=== PATIENT | female | born 1990 | race Caucasian/White ===

== ENCOUNTER 2016-09-10 12:07 | Observation (INO) | payer MEDICAID, OTHER ==
[~2016-09-10] VITALS: Ht 172.7 cm; Wt 100.0 kg
[~2016-09-10 12:07] MED LIST: METH5SOL3 PO
[2016-09-10 12:09] VITALS: BP 124/74; PULSE 86; RESP 20; TEMP 97.6; O2SAT 99
--- NOTE | 2016-09-10 12:21 | PD ---
Physical Exam Time Seen by Provider: 12:17 Narrative 26yo F c/o migraine ESQUEDA x 2.5 days Fever 101.2. Hx of migraines. +generalized weakness and vomiting. Takes methadone daily and last dose was 3 days ago; same day as ESQUEDA onset. Patient seen in triage. VS reviewed. Awaiting bed placement. Data Data Last Documented VS Vital Signs Date Time Temp Pulse Resp B/P Pulse Ox O2 Delivery O2 Flow Rate FiO2 09/10/16 12:09 97.6 86 20 124/74 99 Room Air MDM Supervised Visit with DAQUAN: Lavonne Richards September 10, 2016 12:21
[2016-09-10] MEDS ORDERED: METH40TA PO (12:43)
[2016-09-10] MEDS ORDERED: SODIUM CHLOR 0.9% 1000 ML INJ 1,000 ML IV ONE (12:52)
--- NOTE | 2016-09-10 12:55 | PD ---
HPI Chief Complaint: Headache Time Seen by Provider: 12:55 Travel History International Travel<30 days: No Contact w/Intl Traveler<30days: No Traveled to known affect area: No History of Present Illness HPI 26-year-old female with a history of IV drug use, anxiety, depression, migraine headaches presents to the emergency department for evaluation of headache, nausea, vomiting, generalized weakness and fatigue. Patient states that for the past month she has had worsening weakness, fatigue and chills. States that for the past 2 days she has had a migraine headache that began with a slow onset. Describes it as a throbbing pain in her posterior head, constant. The only alleviating factor is sleep. Complains of photophobia, nausea and vomiting with the headache. States that this began as a typical migraine headache for her however this pain is worse than previous headaches. States that she had a fever of 101.2F two nights ago. Denies any chest pain, shortness of breath, lightheadedness, abdominal pain, diarrhea, constipation, dysuria, hematuria, numbness or tingling, one-sided weakness, gait instability. States that she has not used IV drugs in about 3 months, she is now on methadone. She also mentions she has had some intermittent skin lesions over the last several months, states they become red, swollen and painful but have resolved on their own. She has not been feeling well for the last month and is worried she may have "bacteria in my blood again." No other complaints. PFSH Past Medical History Arthritis: No Asthma: No Autoimmune Disease: No Blood Disorders: No Bipolar Disorder: Yes Anxiety: Yes Depression: Yes Heart Rhythm Problems: No Cancer: No High Cholesterol: No Chest Pain: No Congestive Heart Failure: No COPD: No Cerebrovascular Accident: No Diminished Hearing: No Endocrine: No Gastrointestinal Disorders: No GERD: No Genitourinary: No Headaches: Yes Hepatitis: No Hiatal Hernia: No Hypertension: No Immune Disorder: No Implanted Vascular Access Dvce: No Kidney Stones: No Musculoskeletal: Yes Neurologic: Yes Psychiatric: Yes Reproductive: No Respiratory: Yes Migraines: Yes Renal Failure: No Schizophrenia: No Sickle Cell Disease: No Sleep Apnea: No Thyroid Disease: No Ulcer: No ?: Not Menopausal: No : 4 Para: 2 Miscarriage: 2 : 0 Dilation and Curettage (D&C): Yes Past Surgical History Abdominal Surgery: No AICD: No Appendectomy: No Arteriovenous Shunt: No Cardiac Surgery: No Cholecystectomy: No Endocrine Surgery: Yes Eye Surgery: Yes Genitourinary Surgery: No Gynecologic Surgery: No Insulin Pump: No Joint Replacement: No Neurologic Surgery: No Oral Surgery: Yes (WISDOM TEETH) Pacemaker: No Thoracic Surgery: No Other Surgery: Yes (WOUND DEBRIDEMENT) Social History Alcohol Use: No Tobacco Use: Yes Substance Use: No Allergies-Medications (Allergen,Severity, Reaction): Coded Allergies: Sulfa (Verified Allergy, Severe, Anaphylaxis, 09/10/16) *MDRO Multi-Drug Resistant Organism (Verified Adverse Reaction, Unknown, ) MRSA (leg wound) - 10/21/15 Reported Meds & Prescriptions Reported Meds & Active Scripts Active Reported Methadone (Methadone HCl) 40 Mg Tab 60 Mg PO DAILY Review of Systems Except as stated in HPI: all other systems reviewed are Neg Physical Exam Narrative GENERAL: Well-nourished and well-developed pleasant female patient in no acute distress who is nontoxic appearing. SKIN: Warm and dry. HEAD: Normocephalic and atraumatic. EYES: No injection, drainage, or hyphema noted. PERRLA. EOMI. ENT: No nasal drainage noted. Oropharynx is clear. NECK: Supple and the trachea is midline. No nuchal rigidity. CARDIOVASCULAR: Regular rate and rhythm. RESPIRATORY: Breath sounds are equal bilaterally with no accessory muscle use, wheezing, rhonchi, or crackles. GASTROINTESTINAL: Abdomen is soft, non-tender, and nondistended. MUSCULOSKELETAL: No obvious deformities, swelling, cyanosis, or ecchymosis is present throughout the upper and lower extremities. Patient has full range of motion without any signs of neurovascular compromise. NEUROLOGICAL: Awake, alert, and oriented. Normal speech and gait. Cranial nerves are grossly intact. Data Data Last Documented VS Vital Signs Date Time Temp Pulse Resp B/P Pulse Ox O2 Delivery O2 Flow Rate FiO2 09/10/16 14:58 82 18 120/82 99 Room Air 09/10/16 12:09 97.6 Orders Complete Blood Count With Diff (09/10/16 12:52) Comprehensive Metabolic Panel (09/10/16 12:52) Lactic Acid Sepsis Protocol (09/10/16 12:52) Lipase (09/10/16 12:52) Urinalysis - C+S If Indicated (09/10/16 12:52) Influenzae A/B Antigen (09/10/16 12:52) Blood Culture (09/10/16 12:52) Chest, Single Ap (09/10/16 12:52) Blood Glucose (09/10/16 12:52) Ecg Monitoring (09/10/16 12:52) Iv Access Insert/Monitor (09/10/16 12:52) Oximetry (09/10/16 12:52) Ed Urine Pregnancytest Poc (09/10/16 12:52) Prochlorperazine Inj (Compazine Inj) (09/10/16 13:00) Diphenhydramine Inj (Benadryl Inj) (09/10/16 13:00) Sodium Chlor 0.9% 1000 Ml Inj (Ns 1000 M (09/10/16 12:52) Ct Brain W/O Iv Contrast(Rout) (09/10/16 13:22) C-Reactive Protein (Crp) (09/10/16 13:30) Westergren Sedimentation Rate (09/10/16 13:30) Urine Culture (09/10/16 13:20) Vancomycin Inj (Vancomycin Inj) (09/10/16 14:57) Admit Order (Ed Use Only) (09/10/16 16:06) Labs Laboratory Tests Test 09/10/16 09/10/16 09/10/16 09/10/16 13:20 13:31 14:06 14:17 Urine Color YELLOW Urine Turbidity HAZY Urine pH 7.0 Urine Specific [place] 1.020 Urine Protein TRACE mg/dL Urine Glucose (UA) NEG mg/dL Urine Ketones NEG mg/dL Urine Occult Blood NEG Urine Nitrite NEG Urine Bilirubin NEG Urine Urobilinogen LESS THAN 2.0 MG/DL Urine Leukocyte Esterase SMALL Urine RBC 1 /hpf Urine WBC 3 /hpf Urine Squamous Epithelial 3 /hpf Cells Urine Bacteria RARE /hpf Urine Mucus FEW /lpf Microscopic Urinalysis Comment CATH-CULTURE IND White Blood Count 16.4 TH/MM3 Red Blood Count 5.11 MIL/MM3 Hemoglobin 13.2 GM/DL Hematocrit 40.3 % Mean Corpuscular Volume 78.9 FL Mean Corpuscular Hemoglobin 25.9 PG Mean Corpuscular Hemoglobin 32.8 % Concent Red Cell Distribution Width 13.7 % Platelet Count 203 TH/MM3 Mean Platelet Volume 7.9 FL Neutrophils (%) (Auto) 88.5 % Lymphocytes (%) (Auto) 7.5 % Monocytes (%) (Auto) 3.3 % Eosinophils (%) (Auto) 0.2 % Basophils (%) (Auto) 0.5 % Neutrophils # (Auto) 14.5 TH/MM3 Lymphocytes # (Auto) 1.2 TH/MM3 Monocytes # (Auto) 0.5 TH/MM3 Eosinophils # (Auto) 0.0 TH/MM3 Basophils # (Auto) 0.1 TH/MM3 CBC Comment AUTO DIFF Differential Total Cells 100 Counted Neutrophils % (Manual) 72 % Band Neutrophils % 9 % Lymphocytes % 13 % Monocytes % 6 % Neutrophils # (Manual) 13.3 TH/MM3 Differential Comment FINAL DIFF MANUAL Platelet Estimate NORMAL Platelet Morphology Comment NORMAL Red Cell Morphology Comment NORMAL Sodium Level 138 MEQ/L Potassium Level 4.3 MEQ/L Chloride Level 106 MEQ/L Carbon Dioxide Level 25.0 MEQ/L Anion Gap 7 MEQ/L Blood Urea Nitrogen 10 MG/DL Creatinine 0.61 MG/DL Estimat Glomerular Filtration 117 ML/MIN Rate Random Glucose 88 MG/DL Calcium Level 8.7 MG/DL Total Bilirubin 0.5 MG/DL Aspartate Amino Transf 24 U/L (AST/SGOT) Alanine Aminotransferase 22 U/L (ALT/SGPT) Alkaline Phosphatase 70 U/L C-Reactive Protein 2.30 MG/DL Total Protein 7.8 GM/DL Albumin 3.3 GM/DL Lipase 80 U/L Lactic Acid Level 1.6 mmol/L Erythrocyte Sedimentation Rate 37 mm/hr MDM Medical Decision Making Medical Screen Exam Complete: Yes Emergency Medical Condition: Yes Differential Diagnosis Viral illness versus bacteremia versus migraine headache versus tension headache versus other Narrative Course 26-year-old female with a history of IV drug use presents to the emergency department for evaluation of headache, vomiting, fever and generalized weakness. Patient is afebrile here in the emergency Department, vital signs are within normal limits. No focal neurologic deficits, no meningeal signs. IV access is obtained, labs have been drawn and sent. Patient is placed on cardiac telemetry and pulse oximetry monitoring. Patient is administered IV fluids, Benadryl and Compazine. Chest X-ray and head CT has been ordered and is pending. CBC shows an elevated white blood cell count 16.4 with 9% band neutrophils. Sedimentation rate is elevated at 37. CMP is within normal limits. CRP is elevated at 2.3. Lactic acid is 1.6. Urinalysis shows small leukocyte esterase, rare bacteria, few mucus. Chest x-ray is unremarkable. Influenza swab is negative. Patient with history of IVDU comes in with vague complaints of general weakness , fever, headache and labs show a leukocytosis with bandemia. She has a history of sepsis and bacteremia. She's reporting some intermittent skin lesions, no active skin infection found on examination. No source of infection noted at this time, however, due to her abnormal white count and her history we' ll administered IV vancomycin and keep her under observation to follow blood cultures. I discussed the case with my attending physician Dr. Choi who is aware of the patients history, physical examination findings, and treatment plan. Physician Communication Physician Communication I spoke with Dr. Cantrell [facility] who agrees to admit the patient to his service under observation. Diagnosis Primary Impression: Leukocytosis Qualified Code: D72.825 - Bandemia Additional Impressions: Bandemia without diagnosis of specific infection Hx of intravenous drug use in remission Admitting Information Admitting Physician Requests: Observation Lavonne Velazquez September 10, 2016 12:55
[2016-09-10] MEDS ORDERED: PROCHLORPERAZINE INJ 10 MG/2 ML VIAL IVP ONE (13:00)
[2016-09-10] MEDS ORDERED: diphenhydrAMINE HCL 50 MG/ML VIAL IVP ONE (13:00)
--- NOTE | 2016-09-10 13:34 | RADRPT ---
EXAM DATE/TIME: 09/10/2016 13:12 [facility] COMPARISON: CHEST SINGLE AP, January 03, 2016, 11:00. INDICATIONS : Fever and vomiting. MEDICAL HISTORY : None. SURGICAL HISTORY : None. ENCOUNTER: Initial ACUITY: 3 days PAIN SCORE: 0/10 LOCATION: Bilateral chest FINDINGS: A single view of the chest demonstrates the lungs to be symmetrically aerated without evidence of mas s, infiltrate or effusion. The cardiomediastinal contours are unremarkable. Osseous structures are intact. CONCLUSION: No acute disease. Pineda Post MD FACR on September 10, 2016 at 13:32 Board Certified Radiologist. This report was verified electronically.
[2016-09-10 13:54] LABS: BACTERIA, URINE RARE /hpf; BLOOD, URINE NEG (NEG); GLUCOSE,URINE NEG (NEG); KETONE, URINE NEG (NEG); MUCUS URINE FEW /lpf (OCC); NITRITE,URINE NEG (NEG); SQUAMOUS EPITHELIAL CELL URINE 3 /hpf (0-5); URINE COLOR YELLOW (YELLW/STRAW)
[2016-09-10 13:56] LABS: COMMENT (UR) CATH-CULTURE IND; CULTURE IF INDICATED CATH CULTURE IND
[2016-09-10 13:58] LABS: AUTOMATED NEUTROPHIL # 14.5 TH/MM3 (1.8-7.7); BASOPHIL # 0.1 TH/MM3 (0-0.2); BASOPHIL % 0.5 % (0.0-2.0); EOSINOPHIL % 0.2 % (0.0-4.0); HEMATOCRIT 40.3 % (35.0-46.0); LYMPH % 7.5 % (9.0-44.0); LYMPHOCYTE # 1.2 TH/MM3 (1.0-4.8); MEAN CELL VOLUME 78.9 FL (80.0-100.0); MEAN CORPUSCULAR HEMOGLOBIN 25.9 PG (27.0-34.0); MEAN CORPUSCULAR HGB CONC 32.8 % (32.0-36.0); MONO % 3.3 % (0.0-8.0); NEUT % 88.5 % (16.0-70.0); PLATELET COUNT 203 TH/MM3 (150-450); RED BLOOD COUNT 5.11 MIL/MM3 (4.00-5.30); RED CELL DISTRIBUTION WIDTH 13.7 % (11.6-17.2); WHITE BLOOD COUNT 16.4 TH/MM3 (4.0-11.0)
[2016-09-10 13:59] LABS: HEMO FLAGS AUTO DIFF
[2016-09-10 14:02] LABS: ANION GAP 7 MEQ/L (5-15); AST (GOT) 24 U/L (15-37); BLOOD UREA NITROGEN 10 MG/DL (7-18); CHLORIDE 106 MEQ/L (98-107); GLOMERULAR FILTRATION RATE 117 ML/MIN (>89); POTASSIUM 4.3 MEQ/L (3.5-5.1); SODIUM (NA) 138 MEQ/L (136-145)
[2016-09-10 14:07] LABS: ALKALINE PHOSPHATASE 70 U/L (45-117); ALT (GPT) 22 U/L (10-53); TOTAL BILIRUBIN ADULT 0.5 MG/DL (0.2-1.0)
--- NOTE | 2016-09-10 14:10 | PD ---
Data Data Last Documented VS Vital Signs Date Time Temp Pulse Resp B/P Pulse Ox O2 Delivery O2 Flow Rate FiO2 09/10/16 14:58 82 18 120/82 99 Room Air 09/10/16 12:09 97.6 Orders Complete Blood Count With Diff (09/10/16 12:52) Comprehensive Metabolic Panel (09/10/16 12:52) Lactic Acid Sepsis Protocol (09/10/16 12:52) Lipase (09/10/16 12:52) Urinalysis - C+S If Indicated (09/10/16 12:52) Influenzae A/B Antigen (09/10/16 12:52) Blood Culture (09/10/16 12:52) Chest, Single Ap (09/10/16 12:52) Blood Glucose (09/10/16 12:52) Ecg Monitoring (09/10/16 12:52) Iv Access Insert/Monitor (09/10/16 12:52) Oximetry (09/10/16 12:52) Ed Urine Pregnancytest Poc (09/10/16 12:52) Prochlorperazine Inj (Compazine Inj) (09/10/16 13:00) Diphenhydramine Inj (Benadryl Inj) (09/10/16 13:00) Sodium Chlor 0.9% 1000 Ml Inj (Ns 1000 M (09/10/16 12:52) Ct Brain W/O Iv Contrast(Rout) (09/10/16 13:22) C-Reactive Protein (Crp) (09/10/16 13:30) Westergren Sedimentation Rate (09/10/16 13:30) Urine Culture (09/10/16 13:20) Vancomycin Inj (Vancomycin Inj) (09/10/16 14:57) Labs Laboratory Tests Test 09/10/16 09/10/16 09/10/16 09/10/16 13:20 13:31 14:06 14:17 Urine Color YELLOW Urine Turbidity HAZY Urine pH 7.0 Urine Specific [place] 1.020 Urine Protein TRACE mg/dL Urine Glucose (UA) NEG mg/dL Urine Ketones NEG mg/dL Urine Occult Blood NEG Urine Nitrite NEG Urine Bilirubin NEG Urine Urobilinogen LESS THAN 2.0 MG/DL Urine Leukocyte Esterase SMALL Urine RBC 1 /hpf Urine WBC 3 /hpf Urine Squamous Epithelial 3 /hpf Cells Urine Bacteria RARE /hpf Urine Mucus FEW /lpf Microscopic Urinalysis Comment CATH-CULTURE IND White Blood Count 16.4 TH/MM3 Red Blood Count 5.11 MIL/MM3 Hemoglobin 13.2 GM/DL Hematocrit 40.3 % Mean Corpuscular Volume 78.9 FL Mean Corpuscular Hemoglobin 25.9 PG Mean Corpuscular Hemoglobin 32.8 % Concent Red Cell Distribution Width 13.7 % Platelet Count 203 TH/MM3 Mean Platelet Volume 7.9 FL Neutrophils (%) (Auto) 88.5 % Lymphocytes (%) (Auto) 7.5 % Monocytes (%) (Auto) 3.3 % Eosinophils (%) (Auto) 0.2 % Basophils (%) (Auto) 0.5 % Neutrophils # (Auto) 14.5 TH/MM3 Lymphocytes # (Auto) 1.2 TH/MM3 Monocytes # (Auto) 0.5 TH/MM3 Eosinophils # (Auto) 0.0 TH/MM3 Basophils # (Auto) 0.1 TH/MM3 CBC Comment AUTO DIFF Differential Total Cells 100 Counted Neutrophils % (Manual) 72 % Band Neutrophils % 9 % Lymphocytes % 13 % Monocytes % 6 % Neutrophils # (Manual) 13.3 TH/MM3 Differential Comment FINAL DIFF MANUAL Platelet Estimate NORMAL Platelet Morphology Comment NORMAL Red Cell Morphology Comment NORMAL Sodium Level 138 MEQ/L Potassium Level 4.3 MEQ/L Chloride Level 106 MEQ/L Carbon Dioxide Level 25.0 MEQ/L Anion Gap 7 MEQ/L Blood Urea Nitrogen 10 MG/DL Creatinine 0.61 MG/DL Estimat Glomerular Filtration 117 ML/MIN Rate Random Glucose 88 MG/DL Calcium Level 8.7 MG/DL Total Bilirubin 0.5 MG/DL Aspartate Amino Transf 24 U/L (AST/SGOT) Alanine Aminotransferase 22 U/L (ALT/SGPT) Alkaline Phosphatase 70 U/L C-Reactive Protein 2.30 MG/DL Total Protein 7.8 GM/DL Albumin 3.3 GM/DL Lipase 80 U/L Lactic Acid Level 1.6 mmol/L Erythrocyte Sedimentation Rate 37 mm/hr [facility] Supervised Visit with DAQUAN: Yes Narrative Course The history, exam, and medical decision-making in the associated mid-level provider note were completed with my assistance. I reviewed and agree with the findings presented. I attest that I had a [id number] encounter with the patient on the same day, and personally performed and documented my assessment and findings in the medical record. *My assessment and Findings: 26 year-old woman presents emergent arm feeling poorly for a month or 2, weakness fatigue and occasional fevers and night sweats, history of IVDU with endocarditis and septic arthritis, denies IV drug use over the past couple months. Here with headache. Started as her typical migraine, but not relieved with sleep like it normally is. She looks well on exam. No focal symptoms. She has a lot of skin infections and gets MRSA abscesses periodically as does her partner. We'll check labs, CT, inflammatory markers are reassess. I don't think she has a new bacteremia or sepsis. She does however have a mild bandemia , and elevation of inflammatory markers, given her history will plan on admission for observation. Procedures Procedure Narrative Ultrasound guided peripheral IV: This by multiple times nursing staff was unable to obtain IV access or obtain samples for diagnostic testing. The right forearm was prepped with chlorhexidine. It was examined under ultrasound. 20-gauge Angiocath was introduced in the right forearm with out difficulty. Blood samples were obtained. Patient tolerated well. Armando Choi MD September 10, 2016 14:10
[2016-09-10 14:28] LABS: BANDS 9 % (0-6); NEUTROPHIL # MANUAL DIFF 13.3 TH/MM3 (1.8-7.7); POLYS (SEG NEUTROPHILS) 72 % (16-70); WBC DIFF SAMPLE 100
[2016-09-10 14:29] LABS: PLATELET ESTIMATE SMEAR NORMAL (NORMAL); PLATELET MORPHOLOGY NORMAL (NORMAL); SCAN/DIFF FINAL DIFF MANUAL
[2016-09-10] MEDS ORDERED: VANCOMYCIN INJ 1,000 MG in SODIUM CHLOR 0.9% 250 ML INJ 250 ML IV STA (14:57)
[2016-09-10 14:58] VITALS: BP 120/82; PULSE 82; RESP 18; O2SAT 99
--- NOTE | 2016-09-10 15:19 | RADRPT ---
EXAM DATE/TIME: 09/10/2016 14:18 [facility] COMPARISON: CT BRAIN W/O CONTRAST, January 25, 2010, 22:59. INDICATIONS : Patient complains of headache for 3 days. RADIATION DOSE: 56.35 CTDIvol (mGy) MEDICAL HISTORY : Seizures. Diabetes mellitus type 1. Cardiovascular disease SURGICAL HISTORY : None. ENCOUNTER: Initial ACUITY: 1 day PAIN SCALE: 5/10 LOCATION: cranial TECHNIQUE: Multiple contiguous axial images were obtained of the head. Using automated exposure control and adj ustment of the mA and/or kV according to patient size, radiation dose was kept as low as reasonably a chievable to obtain optimal diagnostic quality images. FINDINGS: CEREBRUM: The ventricles are normal for age. No evidence of midline shift, mass lesion, hemorrhage or acute in farction. No extra-axial fluid collections are seen. POSTERIOR FOSSA: The cerebellum and brainstem are intact. The 4th ventricle is midline. The cerebellopontine angle i s unremarkable. EXTRACRANIAL: The visualized portion of the orbits is intact. SKULL: The calvaria is intact. No evidence of skull fracture. CONCLUSION: No acute intracranial findings. Jamel Hardwick MD on September 10, 2016 at 15:15 Board Certified Radiologist. This report was verified electronically.
[2016-09-10] MEDS ORDERED: LACTULOSE SYRUP 20 GM/30 ML CUP PO PRN (16:15)
[2016-09-10] MEDS ORDERED: ACETAMINOPHEN 325 MG TAB PO PRN (16:15)
[2016-09-10] MEDS ORDERED: TEMAZEPAM 15 MG CAP PO PRN (16:15)
[2016-09-10] MEDS ORDERED: NALOXONE HCL 0.4 MG/ML AMP IV PRN (16:15)
[2016-09-10] MEDS ORDERED: SENNOSIDES 8.6 MG TAB PO PRN (16:15)
[2016-09-10] MEDS ORDERED: MAGNESIUM HYDROXIDE SUSP 30 ML CUP PO PRN (16:15)
[2016-09-10] MEDS ORDERED: BISACODYL 10 MG SUPP RECTAL PRN (16:15)
[2016-09-10] MEDS ORDERED: ONDANSETRON HCL 4 MG/2 ML VIAL IVP PRN (16:15)
[2016-09-10] MEDS ORDERED: SODIUM CHLORIDE 0.9% FLUSH 10 ML FLUSH IV FLUSH PRN (16:15)
[2016-09-10 17:12] VITALS: BP 129/71; PULSE 73; RESP 20; TEMP 98.2; O2SAT 98
--- NOTE | 2016-09-10 17:21 | HHI.HP ---
[facility] No Primary Care Physician Admission Diagnosis Leukocytosis with Bandemia, Hx of IVDU Diagnoses: Chief Complaint: Headache Travel History International Travel<30 Days: No Contact w/Intl Traveler <30 Da: No Traveled to Known Affected Are: No History of Present Illness Written by Rainer Vernon PA-C, acting as scribe for Dr. Erich Cantrell on 09/10/16 at 17:07. Pt is 26 yo female with history inclusive of anxiety/depression, migraine headaches, and IV drug abuse (currently is a pt of the methadone treatment program of [facility] in [place]). Ms. Dewitt reported having a headache that began three days ago, reportedly worse than her usual headaches. She developed a fever two evenings ago (101.2). Over the course of her current illness, she has had nausea and vomiting to the point she has not been able to eat or drink. She also reported having photophobia that is ongoing. As her condition was not improving she came to [facility] ED for evaluation and management of her condition. Pt reported she has had relief from her headache and nausea/vomiting with a combination of Benadryl and Compazine administered in the ED. She denied fever, body aches, abdominal pain, altered vision (other than photophobia), chills, fever, cough, and shortness of breath. Per ED record, pt reported having "red spots" develop on her skin at various points. This were reported in the ED report as pain and abated on their own. None were endorsed at this time. Pt did endorse feeling low energy and "down" for a period of time. She said two weeks ago she "had a line of meth(amphetamine) and that was a huge mistake. A really, really huge mistake." Pt stated she "snorted" the drug and adamantly denied "shooting up." A 10 pt ROS was completed and, except as noted above, was negative. Pt is being admitted for observation to address her headache and nausea/ vomiting. Review of Systems Except as stated in HPI: all other systems reviewed are Neg Past Family Social History Past Medical History Arthritis: No Asthma: No Autoimmune Disease: No Blood Disorders: No Bipolar Disorder: Yes Anxiety: Yes Depression: Yes Heart Rhythm Problems: No Cancer: No High Cholesterol: No Chest Pain: No Congestive Heart Failure: No COPD: No Cerebrovascular Accident: No Diminished Hearing: No Endocrine: No Gastrointestinal Disorders: No GERD: No Genitourinary: No Headaches: Yes Hepatitis: No Hiatal Hernia: No Hypertension: No Immune Disorder: No Implanted Vascular Access Dvce: No Kidney Stones: No Musculoskeletal: Yes Neurologic: Yes Psychiatric: Yes Reproductive: No Respiratory: Yes Migraines: Yes Renal Failure: No Schizophrenia: No Sickle Cell Disease: No Sleep Apnea: No Thyroid Disease: No Ulcer: No ?: Not Menopausal: No : 4 Para: 2 Miscarriage: 2 : 0 Dilation and Curettage (D&C): Yes Past Surgical History Abdominal Surgery: No AICD: No Appendectomy: No Arteriovenous Shunt: No Cardiac Surgery: No Cholecystectomy: No Endocrine Surgery: Yes Eye Surgery: Yes Genitourinary Surgery: No Gynecologic Surgery: No Insulin Pump: No Joint Replacement: No Neurologic Surgery: No Oral Surgery: Yes (WISDOM TEETH) Pacemaker: No Thoracic Surgery: No Other Surgery: Yes (WOUND DEBRIDEMENT) Reported Medications Reported Meds & Active Scripts Active Reported Methadone (Methadone HCl) 40 Mg Tab 60 Mg PO DAILY Allergies: Coded Allergies: Sulfa (Verified Allergy, Severe, Anaphylaxis, 09/10/16) *MDRO Multi-Drug Resistant Organism (Verified Adverse Reaction, Unknown, ) 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 Ordered Medications Current Medications Medications (Trade) Dose Ordered Sig/Ml Route Start Time Stop Time Status Last Admin (NS 1000 ml Inj) 1,000 ml @ 100 mls/hr Q10H IV 09/10/16 16:05 (NS Flush) 2 ml UNSCH PRN IV FLUSH 09/10/16 16:15 (NS Flush) 2 ml BID IV FLUSH 09/10/16 21:00 (Tylenol) 650 mg Q4H PRN PO 09/10/16 16:15 (Zofran Inj) 4 mg Q6H PRN IVP 09/10/16 16:15 (Restoril) 15 mg HS PRN PO 09/10/16 16:15 (Narcan Inj) 0.4 mg UNSCH PRN IV 09/10/16 16:15 (Liliam-Colace) 1 tab BID PO 09/10/16 21:00 (Milk Of Magnesia Liq) 30 ml Q12H PRN PO 09/10/16 16:15 (Senokot) 17.2 mg Q12H PRN PO 09/10/16 16:15 (Dulcolax Supp) 10 mg DAILY PRN RECTAL 09/10/16 16:15 (Lactulose Liq) 30 ml DAILY PRN PO 09/10/16 16:15 (Dolophine) 60 mg DAILY PO 09/11/16 09:00 Family History Father had cardiac disease. Social History IV drug use, pt did not report the length of time she used and stated she has been in Methadone treatment for 3 months. Cigarette use: 04/14 ppd for an undetermined amount of time. Alcohol use: denied. Physical Exam Vital Signs Vital Signs Date Time Temp Pulse Resp B/P Pulse Ox O2 Delivery O2 Flow Rate FiO2 09/10/16 14:58 82 18 120/82 99 Room Air 09/10/16 14:16 97 Room Air 09/10/16 14:16 Room Air 09/10/16 12:09 97.6 86 20 124/74 99 Room Air Physical Exam GENERAL: Pt was encountered laying a bed, in her right side, lights off in the room. She is obese, well-developed, in no apparent distress. SKIN: No rashes, ecchymoses or lesions. Cool and dry. Soles of feet noted to be smudged with black. HEAD: Atraumatic. Normocephalic. No temporal or scalp tenderness. EYES: Pupils equal round and reactive. No scleral icterus. No injection or drainage. Pt evidenced photophobia and requested lights be kept off during the examination. ENT: Nose without bleeding or purulent drainage. Airway patent. NECK: Trachea midline. No JVD or lymphadenopathy. Supple, nontender, no nuchal rigidity with Kernig and Brudzinski signs negative CARDIOVASCULAR: Regular rate and rhythm without murmurs, gallops, or rubs. RESPIRATORY: Clear to auscultation. Breath sounds equal bilaterally. No wheezes , rales, or rhonchi. GASTROINTESTINAL: Abdomen soft, non-tender, nondistended. No hepato- splenomegaly or guarding. MUSCULOSKELETAL: Extremities without clubbing, cyanosis, or edema. No joint tenderness, effusion, or edema noted. NEUROLOGICAL: Awake and alert. Cranial nerves II through XII intact. Motor and sensory grossly within normal limits. Five out of 5 muscle strength in all muscle groups. Speech was clear and fluent. Laboratory Laboratory Tests Test 09/10/16 09/10/16 09/10/16 09/10/16 13:20 13:31 14:06 14:17 Urine Color YELLOW Urine Turbidity HAZY Urine pH 7.0 Urine Specific [place] 1.020 Urine Protein TRACE Urine Glucose (UA) NEG Urine Ketones NEG Urine Occult Blood NEG Urine Nitrite NEG Urine Bilirubin NEG Urine Urobilinogen LESS THAN 2.0 Urine Leukocyte Esterase SMALL Urine RBC 1 Urine WBC 3 Urine Squamous Epithelial 3 Cells Urine Bacteria RARE Urine Mucus FEW Microscopic Urinalysis Comment CATH-CULTURE IND White Blood Count 16.4 Red Blood Count 5.11 Hemoglobin 13.2 Hematocrit 40.3 Mean Corpuscular Volume 78.9 Mean Corpuscular Hemoglobin 25.9 Mean Corpuscular Hemoglobin 32.8 Concent Red Cell Distribution Width 13.7 Platelet Count 203 Mean Platelet Volume 7.9 Neutrophils (%) (Auto) 88.5 Lymphocytes (%) (Auto) 7.5 Monocytes (%) (Auto) 3.3 Eosinophils (%) (Auto) 0.2 Basophils (%) (Auto) 0.5 Neutrophils # (Auto) 14.5 Lymphocytes # (Auto) 1.2 Monocytes # (Auto) 0.5 Eosinophils # (Auto) 0.0 Basophils # (Auto) 0.1 CBC Comment AUTO DIFF Differential Total Cells 100 Counted Neutrophils % (Manual) 72 Band Neutrophils % 9 Lymphocytes % 13 Monocytes % 6 Neutrophils # (Manual) 13.3 Differential Comment FINAL DIFF MANUAL Platelet Estimate NORMAL Platelet Morphology Comment NORMAL Red Cell Morphology Comment NORMAL Sodium Level 138 Potassium Level 4.3 Chloride Level 106 Carbon Dioxide Level 25.0 Anion Gap 7 Blood Urea Nitrogen 10 Creatinine 0.61 Estimat Glomerular Filtration 117 Rate Random Glucose 88 Calcium Level 8.7 Total Bilirubin 0.5 Aspartate Amino Transf 24 (AST/SGOT) Alanine Aminotransferase 22 (ALT/SGPT) Alkaline Phosphatase 70 C-Reactive Protein 2.30 Total Protein 7.8 Albumin 3.3 Lipase 80 Lactic Acid Level 1.6 Erythrocyte Sedimentation Rate 37 Date/Time Procedure Status Source Growth 09/10/16 14:10 Aerobic Blood Culture Received Blood Peripheral Pending 09/10/16 14:10 Anaerobic Blood Culture Received Blood Peripheral Pending 09/10/16 14:08 Influenza Types A,B Antigen (PILLO) - Final Complete Nasal Washing NEGATIVE FOR FLU A AND B ANTIGEN.... 09/10/16 13:32 Influenza Types A,B Antigen (PILLO) Received Nasal Washing Pending 09/10/16 13:20 Urine Culture Received Urine Catheterized Urine Pending Result Diagram: 09/10/16 1331 09/10/16 1331 Imaging Last Impressions Head CT 09/10/16 1322 Signed Impressions: Service Date/Time: Thursday, September 10, 2016 14:18 - CONCLUSION: No acute intracranial findings. Jamel Hardwick MD Chest X-Ray 09/10/16 1252 Signed Impressions: Service Date/Time: Thursday, September 10, 2016 13:12 - CONCLUSION: No acute disease. Pineda Post MD FACR Assessment and Plan Problem List: (1) Hx of intravenous drug use, in remission ICD Code: Z87.898 Status: Acute (2) Headache ICD Code: R51 Status: Acute Assessment and Plan Ms. Dewitt is a 26 year old female with history of IVDU who presents to the due to headache. Headache improved by Compazine and Benadryl in the ED. Headache - CT head negative for any acute findings. - Pt reported she got relief from ER headache with combination of Benadryl ( 25 mg) and Compazine (10 mg). - Will continue Compazine PRN for headache. IF not relieved by Compazine, Fioricet can be used. - WBC is elevated to 16.4K with Neutrophil count 88.5%. No nuchal rigidity. Kernig's and Brudzinski signs negative. - Follow CBC, urine culture. - Possible Brain abscess - Patient has a history of IVDU and current symptoms of headache, leukocytosis, fever, Lactic acid 1.6. ESR, CRP elevated. - We will empirically treat patient for possible brain abscess. - Patient received Vancomycin in the ED. We will give her one dose of Ceftriaxone 2g and Flagyl IV 1g today. - Continue Flagyl 500mg IV Q8hrs, Ceftriaxone 2g Q24hrs, Vancomycin - pharmacy to dose. - De-escalate antibiotics if clinical suspicion is low for any infectious process. - Will order MRI of the brain with Gadolinium contrast to rule out brain abscess. HX of intravenous drug use, in remission. -Pt has stated she takes 110 mg of methadone,daily. She has stated release of information has been signed for team to discuss her issues with [facility] in [place]. Will request a verification of this medication. This note was transcribed by jessenia Vernon PA-C . I, Dr. David Cantrell personally performed the history, physical exam, and medical decision making; and confirmed the accuracy of the information in the transcribed note. Authenticated by Dr. David Cantrell on 09/10/16 at 22:54. Discussed Condition With Pt, RN at bed side Problem Qualifiers (1) Headache: Qualified Code: R51 - Acute intractable headache, unspecified headache type Rainer Vernon Jr. September 10, 2016 17:21 Ciara Cantrell DO September 10, 2016 23:25
[2016-09-10] MEDS: SODIUM CHLOR 0.9% 1000 ML INJ 1,000 ML IV SCH (17:24)
[2016-09-10 19:29] VITALS: BP 104/60; PULSE 84; RESP 18; TEMP 98.5; O2SAT 98
[2016-09-10] MEDS: DOCUSATE SODIUM 50 MG/SENNA 8.6 MG TAB PO SCH (20:35)
[2016-09-10] MEDS: SODIUM CHLORIDE 0.9% FLUSH 10 ML FLUSH IV FLUSH SCH (20:35)
[2016-09-10] MEDS ORDERED: PROCHLORPERAZINE MALEATE 10 MG TAB PO PRN (23:00)
[2016-09-10] MEDS ORDERED: ACETAMIN 325 MG/BUTALBITAL 50 MG/CAFFEINE 40 MG TAB PO PRN (23:00)
[2016-09-10] MEDS ORDERED: cefTRIAXone INJ 2,000 MG in SODIUM CHLORIDE 0.9% INJ 100 ML IV ONE (23:15)
[2016-09-10] MEDS ORDERED: Vancomycin Consult Pharmacy 1 EA OTHER SCH (23:15)
[2016-09-10 23:33] VITALS: BP 106/64; PULSE 74; RESP 18
[2016-09-11] MEDS ORDERED: metroNIDAZOLE 500 MG INJ 100 ML IV ONE ×2 (01:00)
[2016-09-11] MEDS: SODIUM CHLOR 0.9% 1000 ML INJ 1,000 ML IV SCH ×3 (02:45→22:05)
[2016-09-11] MEDS ORDERED: VANCOMYCIN 1,500 MG/NS 500 ML IV ONE ×2 (03:00)
[2016-09-11 03:49] VITALS: BP 111/67; PULSE 58; RESP 18; TEMP 97.9; O2SAT 99
[2016-09-11] MEDS ORDERED: METH5SOL11 PO (07:46)
[2016-09-11 08:11] VITALS: BP 125/81; PULSE 88; RESP 20; O2SAT 96
[2016-09-11] MEDS: DOCUSATE SODIUM 50 MG/SENNA 8.6 MG TAB PO SCH ×2 (08:30→21:00)
[2016-09-11] MEDS ORDERED: LORazepam 2 MG/ML VIAL IV PUSH PRN (08:30)
[2016-09-11] MEDS: SODIUM CHLORIDE 0.9% FLUSH 10 ML FLUSH IV FLUSH SCH ×2 (08:35→21:00)
[2016-09-11] MEDS ORDERED: CYCLOBENZAPRINE HCL 10 MG TAB PO PRN (08:45)
[2016-09-11 08:47] LABS: AUTOMATED NEUTROPHIL # 3.8 TH/MM3 (1.8-7.7); BASOPHIL % 0.7 % (0.0-2.0); EOSINOPHIL # 0.2 TH/MM3 (0-0.4); EOSINOPHIL % 3.6 % (0.0-4.0); HEMATOCRIT 37.4 % (35.0-46.0); HEMO FLAGS DIFF FINAL; LYMPH % 26.6 % (9.0-44.0); LYMPHOCYTE # 1.6 TH/MM3 (1.0-4.8); MEAN CELL VOLUME 79.5 FL (80.0-100.0); MEAN CORPUSCULAR HEMOGLOBIN 25.8 PG (27.0-34.0); MEAN CORPUSCULAR HGB CONC 32.5 % (32.0-36.0); MONO % 5.1 % (0.0-8.0); PLATELET COUNT 169 TH/MM3 (150-450); RED CELL DISTRIBUTION WIDTH 13.8 % (11.6-17.2); WHITE BLOOD COUNT 5.9 TH/MM3 (4.0-11.0)
[2016-09-11] MEDS: METHADONE HCL 10 MG TAB PO SCH (08:55)
[2016-09-11] MEDS ORDERED: METHADONE HCL 10 MG TAB PO SCH (09:00)
--- NOTE | 2016-09-11 09:04 | HHI.PR ---
Subjective Remarks Follow up for headache, leukocytosis. The patient is sitting upright in bedside chair, complains of intractable low back pain. She states she has chronic right sided sciatica but her back pain has been worse over the past few days, currently rated 9/10. Denies any distal lower extremity numbness or tingling, but feels her right leg is slightly weaker due to the back pain. Her headache is much improved, currently subsided, however still reports some photophobia but no blurred/double vision. Denies fevers/chills overnight. Denies any other medical complaints at this time. Objective Vitals Vital Signs Date Time Temp Pulse Resp B/P Pulse Ox O2 Delivery O2 Flow Rate FiO2 09/11/16 08:11 88 20 125/81 96 09/11/16 03:49 97.9 58 18 111/67 99 09/10/16 23:33 74 18 106/64 09/10/16 21:40 20 09/10/16 19:29 98.5 84 18 104/60 98 09/10/16 17:12 98.2 73 20 129/71 98 09/10/16 14:58 82 18 120/82 99 Room Air 09/10/16 14:16 97 Room Air 09/10/16 14:16 Room Air 09/10/16 12:09 97.6 86 20 124/74 99 Room Air Result Diagram: 09/10/16 1331 09/10/16 1331 Imaging Last Impressions Head CT 09/10/16 1322 Signed Impressions: Service Date/Time: Saturday, September 10, 2016 14:18 - CONCLUSION: No acute intracranial findings. Jamel Hardwick MD Chest X-Ray 09/10/16 1252 Signed Impressions: Service Date/Time: Saturday, September 10, 2016 13:12 - CONCLUSION: No acute disease. Pineda Post MD FACR Objective Remarks GENERAL: Well-nourished, well-developed young female patient in [facility]. SKIN: Warm and dry. No rash. HEENT: Normocephalic. Atraumatic. Pupils equal and round. Mucous membranes pink and moist. NECK: Supple. Trachea midline. CARDIOVASCULAR: Regular rate and rhythm. S1, S2 noted. No murmur appreciated. RESPIRATORY: No accessory muscle use. Clear to auscultation. Breath sounds equal bilaterally. GASTROINTESTINAL: Abdomen soft, non-tender, nondistended. Normoactive bowel sounds x4. MUSCULOSKELETAL: No obvious deformities. Extremities without clubbing, cyanosis , or edema. Cervical and thoracic spine nontender. Diffuse TTP throughout lower lumbar paraspinous muscles, worse on the right, no bony point tenderness. NEUROLOGICAL: Awake and alert. No obvious cranial nerve deficits. Motor grossly within normal limits. 5/5 muscle strength in bilateral upper and lower extremities. Normal speech. PSYCHIATRIC: Anxious mood; insight and judgment normal. Medications and IVs Current Medications Medications (Trade) Dose Ordered Sig/Ml Route Start Time Stop Time Status Last Admin (NS 1000 ml Inj) 1,000 ml @ 100 mls/hr Q10H IV 09/10/16 16:05 09/11/16 02:45 (NS Flush) 2 ml UNSCH PRN IV FLUSH 09/10/16 16:15 (NS Flush) 2 ml BID IV FLUSH 09/10/16 21:00 09/10/16 20:35 (Tylenol) 650 mg Q4H PRN PO 09/10/16 16:15 09/10/16 20:38 (Zofran Inj) 4 mg Q6H PRN IVP 09/10/16 16:15 (Restoril) 15 mg HS PRN PO 09/10/16 16:15 (Narcan Inj) 0.4 mg UNSCH PRN IV 09/10/16 16:15 (Liliam-Colace) 1 tab BID PO 09/10/16 21:00 (Milk Of Magnesia Liq) 30 ml Q12H PRN PO 09/10/16 16:15 (Senokot) 17.2 mg Q12H PRN PO 09/10/16 16:15 (Dulcolax Supp) 10 mg DAILY PRN RECTAL 09/10/16 16:15 (Lactulose Liq) 30 ml DAILY PRN PO 09/10/16 16:15 (Fioricet 325-50-40) 1 tab Q8H PRN PO 09/10/16 23:00 Prochlorperazine Maleate 10 mg 10 mg Q6H PRN PO 09/10/16 23:00 Metronidazole 100 ml @ 100 mls/hr Q8H IV 09/11/16 10:00 Ceftriaxone Sodium 2000 mg/ Sodium Chloride 100 ml @ 200 mls/hr Q24H IV 09/11/16 23:00 (Vancomycin Consult Pharmacy) 0 ml @ 0 mls/hr UNSCH OTHER 09/10/16 23:15 (Ativan Inj) 1 mg ONCE PRN IV PUSH 09/11/16 08:30 09/11/16 16:00 (Dolophine) 120 mg DAILY PO 09/11/16 09:00 (Flexeril) 10 mg Q12H PRN PO 09/11/16 08:45 A/P Problem List: (1) Hx of intravenous drug use, in remission ICD Code: Z87.898 Status: Acute (2) Headache ICD Code: R51 Status: Acute Assessment and Plan Ms. Dewitt is a 26 year old female with history of IVDU who presents to the due to headache. Headache improved by Compazine and Benadryl in the ED. Headache: s/p benadryl and compazine in ER with moderate relief. - CT head negative for any acute findings. - Will continue Compazine PRN for headache. If not relieved by Compazine, Fioricet can be used. - WBC is elevated to 16.4K with Neutrophil count 88.5%. No nuchal rigidity. Kernig's and Brudzinski signs negative. - Follow CBC, urine culture. - Headache much improved today - Possible Brain abscess: Patient has a history of IVDU and current symptoms of headache, leukocytosis, fever, Lactic acid 1.6. ESR, CRP elevated. - Empirically treat patient for possible brain abscess - Continue Flagyl 500mg IV Q8hrs, Ceftriaxone 2g Q24hrs, Vancomycin - pharmacy to dose. - De-escalate antibiotics if clinical suspicion is low for any infectious process. - Ordered MRI brain w/&w/out contrast to rule out brain abscess. - 1300hrs: Brain MRI negative for abscess, discussed with Dr. Cisneros, discontinue antibiotics - Acute on Chronic Low Back Pain: suspect exacerbation of sciatica however with IVDU, concern for epidural abscess - check Lumbar spine MRI w/&w/out contrast to rule out abscess - Flexeril prn spasms - Kthermia pad - 1300hrs: Lumbar spine MRI negative for abscess HX of intravenous drug use, in remission. -RN verified dosing of methadone 120mg po liquid solution daily, goes to [facility] in [place] -continue methadone Anxiety: patient requesting medication for anxiety - will give atarax 10mg q6h prn anxiety while in the hospital DVT Prophylaxis: teds/SCDs Problem Qualifiers (1) Headache: Qualified Code: R51 - Acute intractable headache, unspecified headache type Vi Cleary PA-C Sep 11, 2016 9:04 am
[2016-09-11 09:27] LABS: POTASSIUM 4.1 MEQ/L (3.5-5.1)
[2016-09-11] MEDS ORDERED: metroNIDAZOLE 500 MG INJ 100 ML IV SCH (10:00)
[2016-09-11 10:31] LABS: AMPHETAMINE, URINE POS (NEG); BARBITURATES, URINE POS (NEG); COCAINE, URINE NEG (NEG)
[2016-09-11] MEDS ORDERED: GADODIAMIDE PF 287 MG/ML 20 ML VIAL (for RAD MRI) IV ONE (11:11)
[2016-09-11] MEDS ORDERED: VANCOMYCIN INJ 1,500 MG in SODIUM CHLORID 0.9% 500 ML INJ 500 ML IV SCH (12:00)
--- NOTE | 2016-09-11 12:02 | RADRPT ---
EXAM DATE/TIME: 09/11/2016 10:28 [facility] COMPARISON: MRI LUMBAR SPINE W & W/O CONTRAST, January 03, 2016, 12:21. INDICATIONS : Abscess. Back pain. CONTRAST: 20 cc Omniscan (gadodiamide) IV MEDICAL HISTORY : IVDU. SURGICAL HISTORY : Left arm surgery. Ankle surgery. ENCOUNTER: Subsequent ACUITY: 2 day PAIN SCORE: 7/10 LOCATION: back. TECHNIQUE: Multiplanar multisequence MRI of the lumbar spine was performed with and without contrast. FINDINGS: The most caudal appearing lumbar vertebra is numbered as L5. VERTEBRAE: There is endplate edema that is stable along the left side of the L4-L5 endplates. Also posteriorly t here is mild endplate edema at L2-L4 similar to the prior study but slightly increased. End plates ap pear intact. Vertebral body height is maintained. There is no anterolisthesis or retrolisthesis. CONUS: Normal level and configuration. POST CONTRAST: No abnormal areas of contrast enhancement are seen. T12-L1: No disc herniation, canal stenosis, or neural foraminal stenosis. L1-L2: No disc herniation, canal stenosis, or neural foraminal stenosis. L2-L3: There is disc desiccation with mild decreased disc height and there is a mild diffuse disc bulge with a mild degree of facet arthrosis. No spinal canal stenosis or neural foraminal narrowing is visualiz ed. L3-L4: There is disc desiccation with decreased disc height and there is a right paracentral disc extrusion at extends inferiorly from the disc space by 8 mm. It completely effaces the right lateral recess and has mass effect on the thecal sac and nerve roots causing mild to moderate spinal canal stenosis. Th ere is also mild facet hypertrophy. No significant neural foraminal narrowing is appreciated. The ext ruded disc material has slightly increased in size from the prior study. L4-L5: There is disc desiccation with mild decreased disc height. There is a diffuse disc bulge with small l eft paracentral disc protrusion which effaces the left lateral recess. There is also mild facet hyper trophy. Mild degree of spinal canal narrowing is present. There is mild to moderate left neural victoriano inal narrowing. Findings at this level are stable. L5-S1: There is disc desiccation with decreased disc height and there is a diffuse disc bulge with possible small right paracentral disc protrusion. Mild facet hypertrophy is present. There is no spinal canal stenosis or neural foraminal narrowing appreciated. The visualized paraspinous structures demonstrate no acute finding. CONCLUSION: 1. No abscess is identified, as questioned. There is stable endplate edema. 2. There is degenerative disc disease at L2-L3 through L5-S1. The extruded disc fragment in a right p aracentral location at L3-L4 has slightly increased in size and causes moderate spinal canal stenosis and mass effect on the adjacent thecal sac and nerve roots. Jaiden Tadeo MD on September 11, 2016 at 11:52 Board Certified Radiologist. This report was verified electronically.
[2016-09-11 12:05] VITALS: BP 144/78; PULSE 80; RESP 20; TEMP 98.4; O2SAT 97
--- NOTE | 2016-09-11 12:06 | RADRPT ---
EXAM DATE/TIME: 09/11/2016 10:28 [facility] COMPARISON: CT BRAIN W/O CONTRAST, September 10, 2016, 14:18. INDICATIONS : Abscess. Cephalgia. CONTRAST: 20 cc Omniscan (gadodiamide) IV MEDICAL HISTORY : IVDU. SURGICAL HISTORY : Left arm surgery. Ankle surgery. ENCOUNTER: Subsequent ACUITY: 3 day PAIN SCORE: 7/10 LOCATION: head. TECHNIQUE: Multiplanar, multisequence MRI of the brain was performed both prior to and following the administrat ion of paramagnetic contrast. FINDINGS: CEREBRUM: The ventricles are normal for age. No evidence of midline shift, mass lesion, hemorrhage or acute in farction. No extraaxial fluid collections are seen. The pituitary gland and suprasellar cistern are normal in configuration. WHITE MATTER: No significant signal abnormalities are seen in the white matter. POSTERIOR FOSSA: The cerebellum and brainstem are intact. The 4th ventricle is midline. The cerebellopontine angle is unremarkable. The cerebellar tonsils are normal in position. DIFFUSION IMAGING: No focal areas of restricted diffusion are seen. No evidence of acute infarction. EXTRACRANIAL: The visualized portions of the orbits and paranasal sinuses are unremarkable. POST-CONTRAST: No abnormal areas of parenchymal or dural enhancement. No evidence of blood-brain barrier breakdown. CONCLUSION: Negative exam. Kelby Givens MD on September 11, 2016 at 12:02 Board Certified Radiologist. This report was verified electronically.
[2016-09-11 14:28] VITALS: BP 132/91; PULSE 81; RESP 22; TEMP 97.9; O2SAT 98
[2016-09-11] MEDS ORDERED: ZOLO100T PO (14:35)
[2016-09-11] MEDS ORDERED: WELLTAB39 PO (14:35)
[2016-09-11] MEDS ORDERED: hydrOXYzine HCL 10 MG TAB PO PRN (15:00)
[2016-09-11] MEDS: NICOTINE 14 MG/24 HR PATCH T-DERMAL SCH (15:12)
[2016-09-11 15:43] VITALS: BP 120/73; PULSE 65; RESP 14; TEMP 98.3; O2SAT 95
[2016-09-11 19:42] VITALS: BP 120/72; PULSE 66; RESP 20; TEMP 98.6
[2016-09-11] MEDS ORDERED: cefTRIAXone INJ 2,000 MG in SODIUM CHLORIDE 0.9% INJ 100 ML IV SCH (23:00)
[2016-09-12 00:11] VITALS: BP 102/56; PULSE 70; RESP 20; TEMP 98.2; O2SAT 97
[2016-09-12] MEDS ORDERED: cefTRIAXone INJ 1,000 MG in SODIUM CHLORIDE 0.9% INJ 100 ML IV SCH (01:00)
[2016-09-12] MEDS ORDERED: PHARMACY ORDERED LAB ONE (03:45)
[2016-09-12 04:07] VITALS: BP 114/78; PULSE 74; RESP 20; TEMP 98.6; O2SAT 99
[2016-09-12 08:04] VITALS: BP 100/74; PULSE 58; RESP 18; TEMP 98; O2SAT 98
[2016-09-12] MEDS ORDERED: REMOVE OLD PATCH T-DERMAL SCH (09:00)
[2016-09-12] MEDS: METHADONE HCL 10 MG TAB PO SCH (09:20)
[2016-09-12] MEDS: NICOTINE 14 MG/24 HR PATCH T-DERMAL SCH (09:21)
[2016-09-12] MEDS: SODIUM CHLOR 0.9% 1000 ML INJ 1,000 ML IV SCH (09:22)
[2016-09-12] MEDS: SODIUM CHLORIDE 0.9% FLUSH 10 ML FLUSH IV FLUSH SCH (09:23)
[2016-09-12 12:33] VITALS: BP 97/55; PULSE 63; RESP 19; TEMP 97.9; O2SAT 95
[2016-09-12] MEDS ORDERED: ONDA1TAB16 PO (14:08)
--- NOTE | 2016-09-12 14:20 | HHI.PR ---
Subjective Remarks Follow-up for leukocytosis. Patient seen with family and friends at bedside with the patient's permission. The patient is asking if she can go home today. She denies any fevers or chills. She states that she recently did have a facial abscess with surrounding swelling, but states that that spontaneously resolved. She states that she has been having nausea, but has been tolerating diet with no vomiting. She would like to home today. Objective Vitals Vital Signs Date Time Temp Pulse Resp B/P Pulse Ox O2 Delivery O2 Flow Rate FiO2 09/12/16 12:33 97.9 63 19 97/55 95 09/12/16 08:04 98.0 58 18 100/74 98 09/12/16 04:07 98.6 74 20 114/78 99 09/12/16 00:11 98.2 70 20 102/56 97 09/11/16 19:42 98.6 66 20 120/72 09/11/16 15:43 98.3 65 14 120/73 95 09/11/16 14:28 97.9 81 22 132/91 98 Result Diagram: 09/11/16 0820 09/11/16 0820 Imaging Last Impressions Lumbar Spine MRI 09/11/16 0000 Signed Impressions: Service Date/Time: September 10:28 - CONCLUSION: 1. No abscess is identified, as questioned. There is stable endplate edema. 2. There is degenerative disc disease at L2-L3 through L5-S1. The extruded disc fragment in a right paracentral location at L3-L4 has slightly increased in size and causes moderate spinal canal stenosis and mass effect on the adjacent thecal sac and nerve roots. Jaiden Tadeo MD Brain MRI 09/11/16 0000 Signed Impressions: Service Date/Time: September 10:28 - CONCLUSION: Negative exam. Kelby Givens MD Head CT 09/10/16 1322 Signed Impressions: Service Date/Time: Saturday, September 10, 2016 14:18 - CONCLUSION: No acute intracranial findings. Jamel Hardwick MD Chest X-Ray 09/10/16 1252 Signed Impressions: Service Date/Time: Saturday, September 10, 2016 13:12 - CONCLUSION: No acute disease. Pineda Post MD FACR Objective Remarks GENERAL: Well-developed well-nourished. In no acute distress. SKIN: Warm and dry. No lesions noted. HEENT: Normocephalic. Pupils equal and round. Mucous membranes pink and moist. CARDIOVASCULAR: Regular rate and rhythm. No murmur appreciated. RESPIRATORY: No accessory muscle use. Clear to auscultation. Breath sounds equal bilaterally. GASTROINTESTINAL: Abdomen soft, non-tender, nondistended. Bowel sounds x4. MUSCULOSKELETAL: No obvious deformities. No clubbing or cyanosis. No edema. NEUROLOGICAL: Awake and alert. No focal neurological deficits. Moves upper and lower extremities spontaneously. Normal speech. PSYCHIATRIC: Appropriate mood and affect; insight and judgment normal. A/P Problem List: (1) Hx of intravenous drug use, in remission ICD Code: Z87.898 Status: Acute (2) Headache ICD Code: R51 Status: Acute Assessment and Plan Ms. Dewitt is a 26 year old female with history of IVDU who presents to the due to headache. Headache improved by Compazine and Benadryl in the ED. Headache: Rule out brain abscess. s/p benadryl and compazine in ER with moderate relief. - CT head negative for any acute findings. - Headache much improved and has not needed prn meds for ESQUEDA - Leukocytosis with bandemia: Afebrile. Lactic acid 1.6. ESR, CRP elevated. Symptoms possibly related to recent facial abscess. - S/P empiric antibiotics, which were discontinued - Ordered MRI brain w/&w/out, negative for acute process or abscess - Ordered Lumbar spine MRI w/&w/out contrast with back pain, negative for abscess - Urine culture with mixed sachin - Blood cultures with NGTD - Repeat CBC with resolution of leukocytosis and bandemia - Acute on Chronic Low Back Pain: suspect exacerbation of sciatica, ruled out abscess as above - Flexeril prn spasms - K thermia pad HX of intravenous drug use, in remission. -RN verified dosing of methadone 120mg po liquid solution daily, goes to [facility] in [place] -continue methadone Anxiety: patient requesting medication for anxiety -Received atarax 10mg q6h prn anxiety while in the hospital Nausea without vomiting -Zofran as needed DVT Prophylaxis: teds/SCDs Discharge Planning Discharge patient to home Condition on discharge: Improved Regular Diet as tolerated Regular activity Rx written: Ondansetron Follow-up with primary care physician Problem Qualifiers (1) Headache: Qualified Code: R51 - Acute intractable headache, unspecified headache type Rajiv Amador Sep 12, 2016 14:20
== END 2016-09-12 15:43 | disposition home or self-care (01) ==
LOC: NEPD 12:07 → NEDA 16:08 → NEPHCDU 17:06
PROVIDERS: ADMIT Internal Medicine; ATTEND Internal Medicine
DX: D72.825 Bandemia (principal); D72.829 Elevated white blood cell count, unspecified; G43.909 Migraine, unspecified, not intractable, without status migrainosus; R53.1 Weakness; R11.2 Nausea with vomiting, unspecified; R50.9 Fever, unspecified; F17.200 Nicotine dependence, unspecified, uncomplicated; F19.21 Other psychoactive substance dependence, in remission; M54.40 Lumbago with sciatica, unspecified side
CPT/HCPCS: 70450; 70553; 71010; 72158; 80048; 80053; 80307; 81001; 83605; 83690; 84703; 85007; 85025; 85027; 85652; 86140; 87040; 87086; 87641; 87804; 96365; 96375; 99285; A9579; G0378; J0696; J0780; J1200; J2060; J3370; J7030; J7040; J7050

== ENCOUNTER 2016-12-09 13:12 | Emergency (ER) | payer MEDICAID ==
[~2016-12-09 13:12] MED LIST changes: +METH5SOL11 PO; -METH5SOL3 PO; +ONDA1TAB16 PO; +WELLTAB39 PO; +ZOLO100T PO
[2016-12-09 13:15] VITALS: BP 123/78; PULSE 79; RESP 15; TEMP 98.4; TEMP 99.2; O2SAT 98
--- NOTE | 2016-12-09 13:27 | PD ---
Physical Exam Time Seen by Provider: 13:24 Narrative 26yo F c/o red ant bites all over x2 days. Onset of R hand and L foot swelling and redness today. Reports vomiting yesterday dn twice today. 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 Up to date on tetanus. Subjective fever. I questioned the patient privately and she admits to IVD use and last injected yesterday. She says she did get bit by red ants on her feet, but the swollen hand is due to injection. Patient seen in triage. VS reviewed. Patient awaiting bed placement. Data Data Last Documented VS Vital Signs Date Time Temp Pulse Resp B/P (MAP) Pulse Ox O2 Delivery O2 Flow Rate FiO2 12/09/16 13:15 99.2 79 15 123/78 (93) 98 Orders Orders Basic Metabolic Panel (Bmp) (12/09/16 13:27) Complete Blood Count With Diff (12/09/16 13:27) Lactic Acid (12/09/16 13:27) MDM Supervised Visit with DAQUAN: Lavonne Richards Dec 09, 2016 13:27
[2016-12-09 14:11] LABS: BASOPHIL % 0.3 % (0.0-2.0); EOSINOPHIL # 0.1 TH/MM3 (0-0.4); EOSINOPHIL % 0.7 % (0.0-4.0); HEMATOCRIT 35.1 % (35.0-46.0); HEMO FLAGS DIFF FINAL; LYMPH % 20.6 % (9.0-44.0); LYMPHOCYTE # 1.5 TH/MM3 (1.0-4.8); MEAN CELL VOLUME 78.8 FL (80.0-100.0); MEAN CORPUSCULAR HEMOGLOBIN 25.9 PG (27.0-34.0); MEAN CORPUSCULAR HGB CONC 32.8 % (32.0-36.0); MONO % 11.3 % (0.0-8.0); NEUT % 67.1 % (16.0-70.0); PLATELET COUNT 239 TH/MM3 (150-450); RED BLOOD COUNT 4.45 MIL/MM3 (4.00-5.30); WHITE BLOOD COUNT 7.5 TH/MM3 (4.0-11.0)
--- NOTE | 2016-12-09 14:23 | PD ---
HPI . Right hand pain and swelling Chief Complaint: Skin Problem Time Seen by Provider: 14:15 Travel History International Travel<30 days: No Contact w/Intl Traveler<30days: No Traveled to known affect area: No History of Present Illness HPI This is an IV drug abuser who presents with right hand pain and swelling. Onset was 2 days ago. The pain is severe. It is associated with a MAXIMUM TEMPERATURE of 102. She has been running a fever for the past 2 days as well. PFSH Past Medical History Arthritis: No Asthma: No Autoimmune Disease: No Blood Disorders: No Bipolar Disorder: Yes Anxiety: Yes Depression: Yes Heart Rhythm Problems: No Cancer: No High Cholesterol: No Chest Pain: No Congestive Heart Failure: No COPD: No Cerebrovascular Accident: No Diminished Hearing: No Endocrine: No Gastrointestinal Disorders: No GERD: No Genitourinary: No Headaches: Yes Hepatitis: No Hiatal Hernia: No Hypertension: No Immune Disorder: No Implanted Vascular Access Dvce: No Kidney Stones: No Musculoskeletal: Yes Neurologic: Yes (MIGRAINES) Psychiatric: Yes Reproductive: No Respiratory: No Migraines: Yes Renal Failure: No Schizophrenia: No Sickle Cell Disease: No Sleep Apnea: No Thyroid Disease: No Ulcer: No Menopausal: No : 4 Para: 2 Miscarriage: 2 : 0 Dilation and Curettage (D&C): Yes Past Surgical History Abdominal Surgery: No AICD: No Appendectomy: No Arteriovenous Shunt: No Cardiac Surgery: No Cholecystectomy: No Endocrine Surgery: Yes Eye Surgery: Yes Genitourinary Surgery: No Gynecologic Surgery: No Insulin Pump: No Joint Replacement: No Neurologic Surgery: No Oral Surgery: Yes (WISDOM TEETH) Pacemaker: No Thoracic Surgery: No Other Surgery: Yes (WOUND DEBRIDEMENT) Social History Alcohol Use: No Tobacco Use: Yes Substance Use: No (HX IVDU) Allergies-Medications (Allergen,Severity, Reaction): Coded Allergies: Sulfa (Sulfonamide Antibiotics) (Unverified Allergy, Severe, Anaphylaxis, 11/25/16) *MDRO Multi-Drug Resistant Organism (Verified Adverse Reaction, Unknown, MRSA, 09/11/16) MRSA PCR screen POSITIVE 09/11/16 MRSA (leg wound) - 10/21/15 Reported Meds & Prescriptions Reported Meds & Active Scripts Active Ondansetron (Ondansetron HCl) 4 Mg Tab 4 Mg PO Q6HR PRN Reported Wellbutrin Xl 24 HR (Bupropion HCl) 300 Mg Tab 300 Mg PO DAILY Zoloft (Sertraline HCl) 100 Mg Tab 100 Mg PO DAILY Methadone Liq (Methadone HCl) 1 Mg/Ml Liqd 120 Mg PO DAILY Review of Systems Except as stated in HPI: all other systems reviewed are Neg General / Constitutional: Positive: Fever, Chills Musculoskeletal: Positive: Edema, Pain (right hand pain) Skin: Positive Change in Pigmentation, Positive Other (fire ant bites on her feet) Physical Exam Narrative Vital Signs Date Time Temp Pulse Resp B/P (MAP) Pulse Ox O2 Delivery O2 Flow Rate FiO2 12/09/16 13:15 99.2 79 15 123/78 (93) 98 GENERAL: Awake and alert and in no acute distress. Speaking in a very soft, whiny voice. SKIN: Warm and dry. She has swelling and tenderness on the dorsal aspect of her right hand. There are track so. There is no fluctuance. The skin is not red. HEAD: Atraumatic. Normocephalic. EYES: Pupils equal and round. NECK: Trachea midline. CARDIOVASCULAR: Regular rate and rhythm. RESPIRATORY: No accessory muscle use. MUSCULOSKELETAL: No obvious deformities. No edema. NEUROLOGICAL: Awake and alert. No obvious cranial nerve deficits. Motor grossly within normal limits. Normal speech. PSYCHIATRIC: Poor judgment. Data Data Last Documented VS Vital Signs Date Time Temp Pulse Resp B/P (MAP) Pulse Ox O2 Delivery O2 Flow Rate FiO2 12/09/16 14:28 98.9 81 18 113/68 (83) 99 Room Air Orders Orders Basic Metabolic Panel (Bmp) (12/09/16 13:27) Complete Blood Count With Diff (12/09/16 13:27) Lactic Acid (12/09/16 13:27) Blood Culture (12/09/16 13:33) Vancomycin Inj (Vancomycin Inj) (12/09/16 14:30) Cefazolin 2 Gm Premix (Ancef 2 Gm Premix (12/09/16 14:30) Ketorolac Inj (Toradol Inj) (12/09/16 14:30) Labs Laboratory Tests Test 12/09/16 13:50 White Blood Count 7.5 TH/MM3 Red Blood Count 4.45 MIL/MM3 Hemoglobin 11.5 GM/DL Hematocrit 35.1 % Mean Corpuscular Volume 78.8 FL Mean Corpuscular Hemoglobin 25.9 PG Mean Corpuscular Hemoglobin Concent 32.8 % Red Cell Distribution Width 13.0 % Platelet Count 239 TH/MM3 Mean Platelet Volume 7.2 FL Neutrophils (%) (Auto) 67.1 % Lymphocytes (%) (Auto) 20.6 % Monocytes (%) (Auto) 11.3 % Eosinophils (%) (Auto) 0.7 % Basophils (%) (Auto) 0.3 % Neutrophils # (Auto) 5.0 TH/MM3 Lymphocytes # (Auto) 1.5 TH/MM3 Monocytes # (Auto) 0.8 TH/MM3 Eosinophils # (Auto) 0.1 TH/MM3 Basophils # (Auto) 0.0 TH/MM3 CBC Comment DIFF FINAL Differential Comment Blood Urea Nitrogen 8 MG/DL Creatinine 0.76 MG/DL Random Glucose 105 MG/DL Calcium Level 8.4 MG/DL Sodium Level 140 MEQ/L Potassium Level 3.3 MEQ/L Chloride Level 104 MEQ/L Carbon Dioxide Level 27.9 MEQ/L Anion Gap 8 MEQ/L Estimat Glomerular Filtration Rate 91 ML/MIN Lactic Acid Level 1.0 mmol/L MDM Medical Decision Making Medical Screen Exam Complete: Yes Emergency Medical Condition: Yes Differential Diagnosis My differential diagnosis includes but is not limited to localized wound infection, cellulitis, abscess Narrative Course This patient presents with pain and swelling of her right hand due to IV drug abuse. I have ordered vancomycin and Ancef. The plan will be to discharge her on clindamycin. CBC Diagram 12/09/16 13:50 BMP Diagram 12/09/16 13:50 Calcium Level 8.4 L Lactic acid level is 1.0. The history, exam, diagnostic testing, and current condition do not suggest any significant pathology to warrant further testing, continued ED treatment, admission, or surgical evaluation at this point. The patient's condition is stable and appropriate for discharge. Diagnosis Primary Impression: Cellulitis Qualified Codes: L03.113 - Cellulitis of right upper limb Additional Impression: IV drug abuse Patient Instructions: Cellulitis (DC), General Instructions Med/Other Pt SpecificInfo: Prescription(s) given Scripts Clindamycin (Clindamycin) 300 Mg Cap 600 MG PO Q8H for Infection for 10 Days, CAP 0 Refills Prov: Alondra Ramirez MD 12/09/16 Disposition: 01 DISCHARGE HOME Condition: Stable Alondra Ramirez MD Dec 09, 2016 14:23
[2016-12-09 14:27] LABS: BICARBONATE 27.9 MEQ/L (21.0-32.0); POTASSIUM 3.3 MEQ/L (3.5-5.1)
[2016-12-09 14:28] VITALS: BP 113/68; PULSE 81; RESP 18; TEMP 98.9; O2SAT 99
[2016-12-09] MEDS ORDERED: VANCOMYCIN INJ 1,000 MG in SODIUM CHLOR 0.9% 250 ML INJ 250 ML IV ONE (14:30)
[2016-12-09] MEDS ORDERED: ceFAZolin 2 GM PREMIX 50 ML IV ONE (14:30)
[2016-12-09] MEDS ORDERED: KETOROLAC TROMETHAMINE 30 MG/ML (IVP) VIAL IV PUSH ONE (14:30)
[2016-12-09] MEDS ORDERED: CLIN1CAP6 PO (14:47)
== END 2016-12-09 16:30 | disposition home or self-care (01) ==
LOC: NEPC 13:12
DX: L03.113 Cellulitis of right upper limb (principal); F19.10 Other psychoactive substance abuse, uncomplicated; F31.9 Bipolar disorder, unspecified; F41.9 Anxiety disorder, unspecified; Z72.0 Tobacco use; Z79.899 Other long term (current) drug therapy
CPT/HCPCS: 80048; 83605; 85025; 87040; 96374; 96375; 99284; J0690; J1885; J3370; J7050

== ENCOUNTER 2016-12-26 11:25 | Emergency (ER) | payer MEDICAID ==
[~2016-12-26] VITALS: Ht 172.7 cm; Wt 100.0 kg
[~2016-12-26 11:25] MED LIST changes: +CLIN1CAP6 PO
[2016-12-26 11:29] VITALS: BP 134/106; PULSE 94; RESP 22; TEMP 98.7; O2SAT 99
--- NOTE | 2016-12-26 11:56 | PD ---
HPI Chief Complaint: Skin Problem Time Seen by Provider: 11:59 Travel History International Travel<30 days: No Contact w/Intl Traveler<30days: No Traveled to known affect area: No History of Present Illness HPI This patient was examined in the presence of female nurse. 26-year-old female with history of IV drug abuse presents for evaluation of left arm abscess. The patient's reports that 2 days ago she injected allotted in the left forearm. She has developed increasing swelling, redness, pain. The pain is a throbbing pain, constant, worse with palpation. She's had occasional chills without objective fever. She reports that she plans on quitting drug abuse and returning to the methadone clinic for regular methadone doses in the next few days. She denies any chest pain or shortness of breath, headache, neck stiffness, abdominal pain, nausea or vomiting. Her last menstrual period was 2 weeks ago. No other complaints. PFSH Past Medical History Arthritis: No Asthma: No Autoimmune Disease: No Blood Disorders: No Bipolar Disorder: Yes Anxiety: Yes Depression: Yes Heart Rhythm Problems: No Cancer: No High Cholesterol: No Chest Pain: No Congestive Heart Failure: No COPD: No Cerebrovascular Accident: No Diminished Hearing: No Endocrine: No Gastrointestinal Disorders: No GERD: No Genitourinary: No Headaches: Yes Hepatitis: No Hiatal Hernia: No Heparin Induced Thrombocytopen: No Hypertension: No Immune Disorder: No Implanted Vascular Access Dvce: No Kidney Stones: No Musculoskeletal: Yes Neurologic: Yes (MIGRAINES) Psychiatric: Yes Reproductive: No Respiratory: No Immunizations Current: Yes Migraines: Yes Renal Failure: No Schizophrenia: No Sickle Cell Disease: No Sleep Apnea: No Thyroid Disease: No Ulcer: No ?: Not Menopausal: No : 4 Para: 2 Miscarriage: 2 : 0 Dilation and Curettage (D&C): Yes Past Surgical History Abdominal Surgery: No AICD: No Appendectomy: No Arteriovenous Shunt: No Cardiac Surgery: No Cholecystectomy: No Endocrine Surgery: Yes Eye Surgery: Yes Genitourinary Surgery: No Gynecologic Surgery: No Insulin Pump: No Joint Replacement: No Neurologic Surgery: No Oral Surgery: Yes (WISDOM TEETH) Pacemaker: No Thoracic Surgery: No Other Surgery: Yes (WOUND DEBRIDEMENT) Social History Alcohol Use: No Tobacco Use: Yes (0.5 ppd) Substance Use: No (HX IVDU dilaudid) Allergies-Medications (Allergen,Severity, Reaction): Coded Allergies: Sulfa (Sulfonamide Antibiotics) (Verified Allergy, Severe, Anaphylaxis, ) *MDRO Multi-Drug Resistant Organism (Verified Adverse Reaction, Unknown, MRSA, 12/26/16) MRSA PCR screen POSITIVE 09/11/16 MRSA (leg wound) - 10/21/15 Reported Meds & Prescriptions Reported Meds & Active Scripts Active Doxycycline Hyclate 100 Mg Cap 100 Mg PO BID Clindamycin (Clindamycin HCl) 300 Mg Cap 300 Mg PO TID 10 Days Review of Systems Except as stated in HPI: all other systems reviewed are Neg Physical Exam Narrative GENERAL: This is a well-developed well-nourished female who is anxious and tearful. Her vital signs of been reviewed. SKIN: Warm and dry. Examination of the left forearm reveals a 4 cm fluctuant abscess with some surrounding cellulitic changes. The compartments of the left forearm are soft. There is some excoriation overlying the skin. Tract so are noted on both arms. No petechiae. HEAD: Atraumatic. Normocephalic. EYES: Pupils equal and round. No scleral icterus. No injection or drainage. ENT: No nasal bleeding or discharge. Mucous membranes pink and moist. NECK: Trachea midline. No JVD. CARDIOVASCULAR: Regular rate and rhythm. No murmur appreciated. RESPIRATORY: No accessory muscle use. Clear to auscultation. Breath sounds equal bilaterally. GASTROINTESTINAL: Abdomen soft, non-tender, nondistended. Hepatic and splenic margins not palpable. MUSCULOSKELETAL: Skin as noted above. Distal sensation, pulses, capillary refill preserved. Motor function preserved. NEUROLOGICAL: Awake and alert. No obvious cranial nerve deficits. Motor grossly within normal limits. Normal speech. Data Data Last Documented VS Vital Signs Date Time Temp Pulse Resp B/P (MAP) Pulse Ox O2 Delivery O2 Flow Rate FiO2 12/26/16 12:02 89 17 12/26/16 11:29 98.7 134/106 (115) 99 Room Air Orders Orders Lidocai-Epi 1%-1:100,000 Inj (Xylocaine- (12/26/16 12:00) Wound Culture And Gram Stain (12/26/16 11:50) Lidocaine 1% Inj (50 Ml) (Xylocaine 1% I (12/26/16 12:15) Complete Blood Count With Diff (12/26/16 12:04) Comprehensive Metabolic Panel (12/26/16 12:04) Lactic Acid (12/26/16 12:04) Sodium Chlor 0.9% 1000 Ml Inj (Ns 1000 M (12/26/16 12:04) Ed Urine Pregnancytest Poc (12/26/16 12:04) Blood Culture (12/26/16 12:04) Ketorolac Inj (Toradol Inj) (12/26/16 12:15) Vancomycin Inj (Vancomycin Inj) (12/26/16 12:15) Labs Laboratory Tests Test 12/26/16 12:35 White Blood Count 12.9 TH/MM3 Red Blood Count 4.68 MIL/MM3 Hemoglobin 11.9 GM/DL Hematocrit 36.1 % Mean Corpuscular Volume 77.2 FL Mean Corpuscular Hemoglobin 25.5 PG Mean Corpuscular Hemoglobin Concent 33.0 % Red Cell Distribution Width 13.2 % Platelet Count 321 TH/MM3 Mean Platelet Volume 7.4 FL Neutrophils (%) (Auto) 67.8 % Lymphocytes (%) (Auto) 22.5 % Monocytes (%) (Auto) 7.7 % Eosinophils (%) (Auto) 1.2 % Basophils (%) (Auto) 0.8 % Neutrophils # (Auto) 8.8 TH/MM3 Lymphocytes # (Auto) 2.9 TH/MM3 Monocytes # (Auto) 1.0 TH/MM3 Eosinophils # (Auto) 0.2 TH/MM3 Basophils # (Auto) 0.1 TH/MM3 CBC Comment DIFF FINAL Differential Comment Blood Urea Nitrogen 9 MG/DL Creatinine 0.69 MG/DL Random Glucose 73 MG/DL Total Protein 8.5 GM/DL Albumin 3.0 GM/DL Calcium Level 8.6 MG/DL Alkaline Phosphatase 59 U/L Aspartate Amino Transf (AST/SGOT) 37 U/L Alanine Aminotransferase (ALT/SGPT) 26 U/L Total Bilirubin 0.5 MG/DL Sodium Level 136 MEQ/L Potassium Level 4.4 MEQ/L Chloride Level 103 MEQ/L Carbon Dioxide Level 26.9 MEQ/L Anion Gap 6 MEQ/L Estimat Glomerular Filtration Rate 101 ML/MIN Lactic Acid Level 1.5 mmol/L MDM Medical Decision Making Medical Screen Exam Complete: Yes Emergency Medical Condition: Yes Medical Record Reviewed: Yes Differential Diagnosis Cutaneous abscess, cellulitis, compartment syndrome, necrotizing fasciitis, tenosynovitis, sepsis, bacteremia, endocarditis Narrative Course 26-year-old female history of IV drug abuse presents with 2 days of left forearm redness, soft tissue swelling and pain after injecting Dilaudid in the region. Examination reveals a fluctuant abscess to the left forearm with some surrounding cellulitic changes. Her vital signs are reassuring. Plan is for basic lab work, blood cultures, the abscess will be drained, the patient verbally consents, and culture will be performed. The patient will be given IV normal saline and vancomycin. Lab work is notable for a CBC of 12.9, lab work is otherwise unremarkable. At this point in time, blood cultures and wound cultures are pending. The patient will be discharged with prescriptions for clindamycin and doxycycline. Recommended return in 2 days for wound recheck and packing removal. Discussed signs and symptoms out [place] returning to the emergency room. Stable for discharge. Procedures Procedure Narrative INCISION AND DRAINAGE OF ABSCESS: The area was prepped and was sterilely draped. A subcutaneous wheal of 1% Xylocaine in a field block with a total number 1 0 mL was used to anesthetize the area. The area was properly anesthetized. A number 11 scalpel was used to make a 1.5 -cm incision across the area of the abscess. Cultures were obtained. The abscess was drained an irrigated with normal saline. Quarter inch iodoform packing was placed in the wound. Sterile dressing applied. Patient advised to have packing removed in two days. Diagnosis Primary Impression: IV drug abuse Additional Impressions: Cellulitis of left forearm Abscess of left forearm Additional Instructions: Antibiotics as prescribed. Return in 2 days for packing removal. As discussed , return sooner for any worsening infection such as increasing redness, rest the arm, fevers. Med/Other Pt SpecificInfo: Prescription(s) given, Wound Care Scripts Doxycycline Hyclate (Doxycycline Hyclate) 100 Mg Cap 100 MG PO BID for Infection, #20 CAP 0 Refills Prov: Marlo Morrison MD 12/26/16 Clindamycin (Clindamycin) 300 Mg Cap 300 MG PO TID for Infection for 10 Days, #30 CAP 0 Refills Prov: Marlo Morrison MD 12/26/16 Disposition: 01 DISCHARGE HOME Condition: Stable Ruiz Espinoza Dec 26, 2016 11:56
[2016-12-26] MEDS ORDERED: LIDOCAINE 1%/EPINEPHrine 1:100,000 SOLN 20 ML VIAL INFIL ONE (12:00)
[2016-12-26] MEDS ORDERED: SODIUM CHLOR 0.9% 1000 ML INJ 1,000 ML IV SCH (12:04)
[2016-12-26] MEDS ORDERED: VANCOMYCIN INJ 1,000 MG in SODIUM CHLOR 0.9% 250 ML INJ 250 ML IV ONE (12:15)
[2016-12-26] MEDS ORDERED: KETOROLAC TROMETHAMINE 30 MG/ML (IVP) VIAL IV PUSH ONE (12:15)
[2016-12-26] MEDS ORDERED: LIDOCAINE HCL 1% 50 ML VIAL INFIL ONE (12:15)
[2016-12-26 12:47] LABS: AUTOMATED NEUTROPHIL # 8.8 TH/MM3 (1.8-7.7); BASOPHIL # 0.1 TH/MM3 (0-0.2); BASOPHIL % 0.8 % (0.0-2.0); EOSINOPHIL # 0.2 TH/MM3 (0-0.4); EOSINOPHIL % 1.2 % (0.0-4.0); HEMATOCRIT 36.1 % (35.0-46.0); HEMO FLAGS DIFF FINAL; LYMPH % 22.5 % (9.0-44.0); LYMPHOCYTE # 2.9 TH/MM3 (1.0-4.8); MEAN CELL VOLUME 77.2 FL (80.0-100.0); MEAN CORPUSCULAR HEMOGLOBIN 25.5 PG (27.0-34.0); MONO % 7.7 % (0.0-8.0); NEUT % 67.8 % (16.0-70.0); PLATELET COUNT 321 TH/MM3 (150-450); RED BLOOD COUNT 4.68 MIL/MM3 (4.00-5.30); RED CELL DISTRIBUTION WIDTH 13.2 % (11.6-17.2); WHITE BLOOD COUNT 12.9 TH/MM3 (4.0-11.0)
[2016-12-26 13:30] VITALS: RESP 17
[2016-12-26 13:30] LABS: ALKALINE PHOSPHATASE 59 U/L (45-117); TOTAL BILIRUBIN ADULT 0.5 MG/DL (0.2-1.0)
[2016-12-26 13:32] LABS: ALT (GPT) 26 U/L (10-53); ANION GAP 6 MEQ/L (5-15); AST (GOT) 37 U/L (15-37); BICARBONATE 26.9 MEQ/L (21.0-32.0); BLOOD UREA NITROGEN 9 MG/DL (7-18); CHLORIDE 103 MEQ/L (98-107); GLOMERULAR FILTRATION RATE 101 ML/MIN (>89); POTASSIUM 4.4 MEQ/L (3.5-5.1); SODIUM (NA) 136 MEQ/L (136-145)
[2016-12-26] MEDS ORDERED: CLIN1CAP6 PO (13:38)
[2016-12-26] MEDS ORDERED: DOXY100C PO (13:38)
[2016-12-26 14:02] VITALS: BP 122/83; TEMP 97.9
== END 2016-12-26 14:00 | disposition home or self-care (01) ==
LOC: NEPC 11:25
DX: L02.414 Cutaneous abscess of left upper limb (principal); B95.0 Streptococcus, group A, as the cause of diseases classified elsewhere; B95.61 Methicillin susceptible Staphylococcus aureus infection as the cause of diseases classified elsewhere; F19.10 Other psychoactive substance abuse, uncomplicated
CPT/HCPCS: 10061; 80053; 83605; 84703; 85025; 86403; 87040; 87070; 87184; 87186; 87205; 96365; 96375; 99284; J1885; J3370; J7030; J7050

== ENCOUNTER 2018-03-14 15:00 | Observation (INO) ==
[2018-03-14] MEDS ORDERED: Piperacil/Tazo 4.5 GM Premix 4.5 GM/100 ML BAG IV.SIG ONE (15:36)
[2018-03-14 15:54] LABS: Baso # (Auto) 0.1 th/mm3 (0.0-0.2); Baso % (Auto) 0.8 % (0.0-2.0); Eos # (Auto) 0.1 th/mm3 (0.0-0.4); Eos % (Auto) 1.2 % (0.0-4.0); Hematocrit 32.2 % (35.0-46.0); Hemoglobin 11.3 gm/dL (11.6-15.3); Lymph # (Auto) 1.4 th/mm3 (1.0-4.8); Lymph % (Auto) 22.2 % (9.0-44.0); Mean Corpuscular HGB Conc 35.2 % (32.0-36.0); Mean Corpuscular Hemoglobin 26.3 pg (27.0-34.0); Mean Corpuscular Volume 74.6 fL (80.0-100.0); Mono # (Auto) 0.6 th/mm3 (0.0-0.9); Mono % (Auto) 9.5 % (0.0-8.0); Neut # (Auto) 4.2 th/mm3 (1.8-7.7); Neut % (Auto) 66.3 % (16.0-70.0); Platelet Count 207 th/mm3 (150-450); Red Blood Count 4.32 mil/mm3 (4.00-5.30); Red Cell Distribution Width 15.1 % (11.6-17.2); White Blood Count 6.3 th/mm3 (4.0-11.0)
--- NOTE | 2018-03-14 16:19 | ED ---
HPI General Chief Complaint: Medical Clearance Stated Complaint: back pain Time Seen by Provider: 03/14/18 15:44 Source: patient and old records reviewed Mode of arrival: ambulatory Limitations: no limitations History of Present Illness MD Complaint: Reports back pain Onset (ago): day(s) (3) Duration: Reports constant Similar Symptoms Previously: Yes Location: Reports lumbar spine Severity: severe Quality: Reports stabbing Radiation: Reports none Severity scale (1-10): 10 Relieving factors: none Exacerbating factors: movement, deep breaths and coughing/sneezing Context: Reports IV drug use (But the patient states that she has been clean since her recent hospitalization); Denies trauma Associated symptoms: Denies numbness, loss of sensation in lower extremities, increased urinary urgency, increased urinary frequency, urinary incontinence, fecal incontinence, fever, chills and parasthesias Related Data Previous Rx's Medication Instructions Recorded sertraline [Zoloft] 50 mg PO DAILY #30 tab 03/06/18 Allergies Allergy/AdvReac Type Severity Reaction Status Date / Time Sulfa (Sulfonamide Allergy Severe Anaphylaxis Verified 03/14/18 15:59 Antibiotics) Review of Systems ROS: all other systems reviewed are negative [facility] Medical History Medical History Depression (Acute) IV drug abuse (Acute) Osteomyelitis of lumbar vertebra (Acute) Sciatica (Acute) Surgical History Surgical History H/O hand surgery (Acute) Social History Social History Substance History: Active Abuse Second Hand Smoke Exposure: Yes Smoking Status: Light tobacco smoker Tobacco Type: Cigarettes How Often Do You Have a Drink Containing Alcohol: Never Recent Travel in [facility] within the Last 8 Weeks: No Recent Out of Country Travel within the Last 8 Weeks: No Substance Abuse Detail Heroin: Route Used Substance Abuse: Intravenously Substance Abuse Comment: last used heroin prior to her previous hospital stays Immunization History Tetanus Immunization: Unsure Exam Const General: cooperative, healthy appearing, well developed and other (crying) Orientation: alert, awake and oriented x3 HENMT Head: normal to inspection, normocephalic and atraumatic Eyes Alignment and Position: alignment normal Conjunctivae: conjunctivae normal Sclera: sclerae normal EOM: EOM intact bilaterally Neck Neck: normal visual inspection and full ROM Chest Chest: normal inspection of the chest Resp Effort & Inspection: normal respiratory effort and able to speak in complete sentences Cardio Rate: regular rate Rhythm: regular rhythm Back/Spine/Pelvis Cervical Spine: cervical ROM normal Thoracic/Lumbar Spine: pain with thoraco-lumbar ROM, thoraco-lumbar ROM limited and lumbar spinal tenderness (lower--about L5) Skin General: no rashes or lesions noted and turgor normal Neuro General: alert, awake, oriented x3, moves all extremities and CN's II-XI intact bilaterally Extrem General: normal to inspection and full ROM Psych Appearance: grossly normal Mental Status: mental status grossly normal Speech and Movement: speech and movement normal Mood: congruent mood Affect: normal affect Attitude: cooperative Thought Process: normal Thought Content: normal Judgment: judgment good Course Initial Documented Vital Signs Temperature 97.7 F 03/14/18 15:04 Pulse Rate 90 03/14/18 15:04 Respiratory Rate 18 03/14/18 15:04 Blood Pressure 151/90 H 03/14/18 15:04 Pulse Oximetry 98 03/14/18 15:04 Last Documented Vital Signs Temperature 97.7 F 03/14/18 15:04 Pulse Rate 74 03/14/18 16:43 Respiratory Rate 16 03/14/18 16:43 Blood Pressure 126/64 03/14/18 16:43 Pulse Oximetry 98 03/14/18 16:43 Medical Decision Making [facility] Narrative Medical decision making narrative: , MRI and biopsy of herThis patient recently had osteomyelitis of her lumbar back. She was discharged from the hospital with a prescription for Levaquin times 10 weeks. The patient reports that she cannot afford the Levaquin and has not been taking any antibiotics since discharge. She does state that she has abstained from IV drug abuse since discharge. She is also now living with her father. She had been homeless. The patient presents back to us today stating that her pain has recurred and she is concerned that the infection has recurred. Septic workup has been initiated including an MRI of her lumbar spine to evaluate for osteomyelitis or epidural abscess. The patient refuses MRI. She is being empirically treated with Zosyn. 4 blood cultures have been ordered. She will probably need to be admitted to the hospital pending the results of blood cultures and also pending consultation with case management. Laboratory evaluation is reassuring. However, her laboratory evaluation on was also reassuring. Her diagnosis was made based upon her blood cultures, MRI and biopsy of her lumbar back. Therefore, she will be admitted for IV antibiotics pending blood cultures drawn today. Medical Screen Exam Complete: Yes Emergency Medical Condition: Yes Differential Diagnosis Differential Diagnosis: Differential diagnosis includes but is not limited to muscular low back pain, DDD, spinal stenosis, epidural abscess, sciatica, kidney infection or stone. Medical Records Medical records reviewed: Yes I reviewed the patient's medical records. This patient was admitted here for back pain. She was found to have osteomyelitis of her back and her blood cultures were all positive for Serratia marcescens. The bacteria was basically pansensitive to everything except tetracycline and tobramycin. She was treated in the hospital with IV Zosyn times 2 weeks and was discharged with a prescription for Levaquin times 10 weeks. Lab Data Result diagrams: 03/14/18 15:40 03/14/18 15:40 Lab Results 03/14/18 03/14/18 03/14/18 Range/Units 15:40 15:40 15:40 WBC 6.3 (4.0-11.0) th/mm3 RBC 4.32 (4.00-5.30) mil/mm3 Hgb 11.3 L (11.6-15.3) gm/dL Hct 32.2 L (35.0-46.0) % MCV 74.6 L (80.0-100.0) fL MCH 26.3 L (27.0-34.0) pg MCHC 35.2 (32.0-36.0) % RDW 15.1 (11.6-17.2) % Plt Count 207 (150-450) th/mm3 MPV 7.0 (7.0-11.0) fL Neut % (Auto) 66.3 (16.0-70.0) % Lymph % (Auto) 22.2 (9.0-44.0) % Sharp % (Auto) 9.5 H (0.0-8.0) % Eos % (Auto) 1.2 (0.0-4.0) % Baso % (Auto) 0.8 (0.0-2.0) % Neut # (Auto) 4.2 (1.8-7.7) th/mm3 Lymph # (Auto) 1.4 (1.0-4.8) th/mm3 Sharp # (Auto) 0.6 (0.0-0.9) th/mm3 Eos # (Auto) 0.1 (0.0-0.4) th/mm3 Baso # (Auto) 0.1 (0.0-0.2) th/mm3 WBC Differential . Differential Comment Auto diff final Sodium 141 (136-145) meq/L Potassium 3.7 (3.5-5.1) meq/L Chloride 106 (98-107) meq/L Carbon Dioxide 30.5 (21.0-32.0) meq/L Anion Gap 5 (5-15) meq/L BUN 7 (7-18) mg/dL Creatinine 0.68 (0.50-1.00) mg/dL Estimated GFR Greater than 89 (>89) mL/min Random Glucose 72 L (74-106) mg/dL Lactic Acid 0.8 (0.4-2.0) mmol/L Calcium 8.2 L (8.5-10.1) mg/dL Magnesium 2.1 (1.5-2.5) mg/dL Total Bilirubin 0.4 (0.2-1.0) mg/dL AST 58 H (15-37) U/L ALT 94 H (10-53) U/L Alkaline Phosphatase 85 (45-117) U/L Total Protein 8.3 H (6.4-8.2) g/dL Albumin 3.2 L (3.4-5.0) g/dL Discharge Plan Discharge Disposition Patient Disposition: 30 Still Patient Discharge Details Diagnosis: Low back pain, Osteomyelitis of lumbar spine Physicians Team ED Provider: Alondra Ramirez Primary Care Provider: UNKNOWN, Rxs /Orders / Referrals /Forms Prescriptions: No Action sertraline [Zoloft] 50 mg Tablet 50 mg PO DAILY Qty: 30 RF: 0 Status ED Status: With Doctor
[2018-03-14 16:44] VITALS: RESP 16; O2SAT 98
[2018-03-14 16:45] LABS: Alanine Aminotransferase 94 U/L (10-53); Albumin 3.2 g/dL (3.4-5.0); Anion Gap 5 meq/L (5-15); Aspartate Aminotransferase 58 U/L (15-37); Blood Urea Nitrogen 7 mg/dL (7-18); Calcium 8.2 mg/dL (8.5-10.1); Carbon Dioxide 30.5 meq/L (21.0-32.0); Chloride 106 meq/L (98-107); Glomerular Filtration Rate Greater Than 89 mL/min (>89); Glucose,Random 72 mg/dL (74-106); Magnesium 2.1 mg/dL (1.5-2.5); Potassium 3.7 meq/L (3.5-5.1); Sodium 141 meq/L (136-145)
[2018-03-14 16:48] LABS: Alkaline Phosphatase 85 U/L (45-117); Total Protein 8.3 g/dL (6.4-8.2)
[2018-03-14] MEDS ORDERED: Ibuprofen 600 MG Tablet PO PRN (17:35)
--- NOTE | 2018-03-14 17:41 | P.HPIM ---
History of Present Illness Primary Care Physician: UNKNOWN History of Present Illness: This patient is a 28-year-old female with a history of hepatitis C, IV heroin use that presented to our facility last month with 5 days of back pain. During auscultation the patient was found to have a spinal abscess. Neurosurgery was consulted to evaluate the patient. The patient was started on IV antibiotics and interventional radiology performed aspiration of the abscess. As per documentation the cultures had no growth. The patient was subsequently discharged on 750 mg of levofloxacin for 10 weeks duration of treatment. The patient now returns to the emergency department with complaints of lower back pain. She says she was unable to get her prescription filled and have not been on medication since she was discharged. Patient denies any fevers or chills her only complaints of the lower back pain. No chest pain, no shortness of breath no abdominal pain, no diarrhea. Past medical history hepatitis C Family history noncontributory Review of Systems All other systems reviewed negative except as stated in HPI COUNT INCLUDES THE [facility] - History History Provided By: Patient - Medical History Medical History: Medical History (Last Updated 03/14/18 @ 16:26 by Alondra Ramirez) Depression IV drug abuse Osteomyelitis of lumbar vertebra Sciatica - Surgical History Surgical History: Surgical History (Last Reviewed 03/14/18 @ 16:26 by Alondra Ramirez) H/O hand surgery - Tobacco History Second Hand Smoke Exposure: Yes Tobacco Use In Past 30 Days: Yes Smoking Status: Light tobacco smoker Tobacco Type: Cigarettes - Alcohol History How Often Do You Have a Drink Containing Alcohol: Never - Substance Use History Substance History: Active Abuse - Substance Use Type Heroin Route Used: Intravenously Comment: last used heroin prior to her previous hospital stays - Travel History Recent Travel in the [facility] Within the Last 8 Weeks: No Recent Travel Out of the Country Within the Last 8 Weeks: No - Immunization History Tetanus Immunization: Unsure Medications and Allergies Allergies Allergy/AdvReac Type Severity Reaction Status Date / Time Sulfa (Sulfonamide Allergy Severe Anaphylaxis Verified 03/14/18 15:59 Antibiotics) Exam Vital signs: Vital Signs 03/14/18 15:04 03/14/18 15:47 03/14/18 16:43 Temperature 97.7 F Pulse Rate 90 78 74 Respiratory Rate 18 16 Blood Pressure 151/90 H 126/64 Pulse Oximetry 98 97 98 Intake & Output 03/13/18 03/14/1818 18:59 06:59 18:59 Intake Total 100 / 100 Balance 100 / 100 Weight 77.111 kg Intake: IV 100 / 100 Zosyn 4.5 GM Premix 4.5 gm In 100 / 100 100 ml @ 200 mls/hr IV.SIG ONCE ONE Rx#:[id number] Narrative: General patient complaining of lower back pain. Patient appears anxious. HEENT extraocular movements are intact, clear oropharyngeal mucosa, no JVD Cardiovascular S1-S2 audible Respiratory clear to auscultation bilaterally Abdomen soft, nontender, nondistended, normal bowel sounds Extremities no edema 2+ distal pulses in bilateral upper and lower extremities Neuro no neurological deficits. No saddle anesthesia. The patient was all 4 extremities, sensation is intact bilaterally. Results - Labs CBC & Chem 7: 03/14/18 15:40 03/14/18 15:40 Labs: Short CBC 03/14/18 Range/Units 15:40 WBC 6.3 (4.0-11.0) th/mm3 Hgb 11.3 L (11.6-15.3) gm/dL Hct 32.2 L (35.0-46.0) % Plt Count 207 (150-450) th/mm3 BMP 03/14/18 15:40 Sodium 141 Potassium 3.7 Chloride 106 Carbon Dioxide 30.5 BUN 7 Creatinine 0.68 Calcium 8.2 L Liver Function 03/14/18 Range/Units 15:40 Total Bilirubin 0.4 (0.2-1.0) mg/dL AST 58 H (15-37) U/L ALT 94 H (10-53) U/L Alkaline Phosphatase 85 (45-117) U/L Albumin 3.2 L (3.4-5.0) g/dL Caprini VTE Risk Assessment Caprini VTE Risk Assessment: No/Low Risk (score <= 1) Caprini Risk Assessment Model: Point Value = 1 Point Value = 2 Point Value = 3 Point Value = 5 Age 41-60 Minor surgery BMI > 25 kg/m2 Swollen legs Varicose veins or History of unexplained or recurrent spontaneous Oral contraceptives or hormone replacement Sepsis (< 1 month) Serious lung disease, including pneumonia (< 1 month) Abnormal pulmonary function Acute myocardial infarction Congestive heart failure (< 1 month) History of inflammatory bowel disease Medical patient at bed rest Age 61-74 Arthroscopic surgery Major open surgery (> 45 min) Laparoscopic surgery (> 45 min) Malignancy Confined to bed (> 72 hours) Immobilizing plaster cast Central venous access Age >= 75 History of VTE Family history of VTE Factor V Leiden Prothrombin [id number] Lupus anticoagulant Anticardiolipin antibodies Elevated serum homocysteine Heparin-induced thrombocytopenia Other congenital or acquired thrombophilia Stroke (< 1 month) Elective arthroplasty Hip, pelvis, or leg fracture Acute spinal cord injury (< 1 month) Prophylaxis Regimen: Total Risk Factor Score Risk Level Prophylaxis Regimen 0-1 Low Early ambulation 2 Moderate Order ONE of the following: *Sequential Compression Device (SCD) *Heparin 5000 units SQ BID 3-4 Higher Order ONE of the following medications: *Heparin 5000 units SQ TID *Enoxaparin/Lovenox 40 mg SQ daily (WT < 150 kg, CrCl > 30 mL/min) *Enoxaparin/Lovenox 30 mg SQ daily (WT < 150 kg, CrCl > 10-29 mL/min) *Enoxaparin/Lovenox 30 mg SQ BID (WT < 150 kg, CrCl > 30 mL/min) AND/OR *Sequential Compression Device (SCD) 5 or more Highest Order ONE of the following medications: *Heparin 5000 units SQ TID (Preferred with Epidurals) *Enoxaparin/Lovenox 40 mg SQ daily (WT < 150 kg, CrCl > 30 mL/min) *Enoxaparin/Lovenox 30 mg SQ daily (WT < 150 kg, CrCl > 10-29 mL/min) *Enoxaparin/Lovenox 30 mg SQ BID (WT < 150 kg, CrCl > 30 mL/min) AND *Sequential Compression Device (SCD) Assessment and Plan - Plan This patient is a 28-year-old female with a history of hepatitis C, IV heroin use that presented to our facility last month with 5 days of back pain. During auscultation the patient was found to have a spinal abscess. Blood cultures during that admission on 02/21/2018 grew Serratia. Neurosurgery was consulted to evaluate the patient. The patient was started on IV antibiotics and interventional radiology performed aspiration of the abscess. As per documentation the cultures had no growth. The patient was subsequently discharged on 750 mg of levofloxacin for 10 weeks duration of treatment. The patient now returns to the emergency department with complaints of lower back pain. She says she was unable to get her prescription filled and have not been on medication since she was discharged. As per the emergency department physician the patient was refusing MRI on the evaluation today. 1. Lower back pain concern for spinal abscess. Patient is afebrile, WBC count normal. Patient was evaluated by the emergency department physician. There was a concern for spinal abscess as the patient has not been on antibiotics since being discharged nearly a week ago. Patient was unable to get her antibiotics. Patient refusing MRI in the emergency department. She was started on IV antibiotics by the ER physicians. Continue Zosyn IV for today. During previous admission the patient was evaluated by infectious disease Dr. Bowling Blood cultures drawn in the ER. We will continue monitor the patient closely. 2. Hepatitis C Patient counseled on IV drug use After discharge she will need to continue to follow-up with her primary care physician is, and GI. SCDs for DVT prophylaxis.
[2018-03-14] MEDS ORDERED: Morphine Sulfate Inj 2 MG/ML Vial IV.PUSH PRN (17:45)
[2018-03-14] MEDS ORDERED: Sod Chloride 0.9% Inj 1,000 ML IV.CONT SCH (18:00)
[2018-03-14 18:23] VITALS: BP 123/70; PULSE 72; TEMP 98.5
[2018-03-14] MEDS ORDERED: Piperacil/Tazo 3.375 GM Premix 50 ML IV.SIG SCH (21:00)
[2018-03-15] MEDS ORDERED: Sertraline 50 MG Tablet PO SCH (09:00)
== END 2018-03-14 18:55 | disposition left against medical advice (07) ==
LOC: NEPC 15:00 → NEDA 15:00 → NEPHCDU 18:18
PROVIDERS: ADMIT Hospitalist; ATTEND Hospitalist

== ENCOUNTER 2018-03-14 21:47 | Inpatient (IN) ==
--- NOTE | 2018-03-14 22:42 | ED ---
HPI General Chief complaint: Medical Clearance Stated complaint: psych eval Time Seen by Provider: 03/14/18 22:12 Source: patient Limitations: no limitations History of Present Illness HPI narrative: The patient is a 28 year old female who presents to the [facility] emergency department with a history of increasing back pain that she reports began 3 days ago. The patient's recent history is complicated by a prior history of IV drug use a lumbar epidural abscess diagnosed on lumbar spine MRI just to the right of the midline spanning L2-L3 on February 21, 2018. The patient had this area drained in the radiology department. The patient had an infectious disease consultation during her hospitalization for 2 weeks and was discharged home on Levaquin for 10 weeks orally, 750 mg/day. Patient was unable to fill the prescription and was discharged approximately a week ago when the pain became worse again 3 days ago. She denies having any weakness of her extremities, or numbness or tingling of her extremities. She reports having increasing right-sided back pain down into the buttock area. She denies having any fevers. She reports that she has increased pain with walking and has been using a family member's walker for assistance since yesterday. She denies having any chest pain or chest pressure. She reports having shortness of breath with exertion. On review of systems otherwise, the patient denies having any cough, congestion, neck pain,abdominal pain, vomiting, diarrhea, urinary symptoms, or other symptoms. She denies having any loss of bowel or bladder control. She reports that she has not used any IV drugs since prior to her last hospitalization. She was last seen in the emergency department and admitted earlier today for placement back on antibiotic, however the patient left AMA from the hospital approximately 2 hours ago. No imaging according to the record was done again as the patient refused, however the patient reports that she would be able to do the imaging with some anxiety control as she reports having claustrophobia. Related Data Previous Rx's Medication Instructions Recorded sertraline [Zoloft] 50 mg PO DAILY #30 tab 03/06/18 Allergies Allergy/AdvReac Type Severity Reaction Status Date / Time Sulfa (Sulfonamide Allergy Severe Anaphylaxis Verified 03/14/18 21:53 Antibiotics) Review of Systems ROS: all other systems reviewed are negative [facility] Medical History Medical History Depression (Acute) IV drug abuse (Acute) Osteomyelitis of lumbar vertebra (Acute) Sciatica (Acute) Surgical History Surgical History H/O hand surgery (Acute) Social History Social History Substance History: Active Abuse Second Hand Smoke Exposure: Yes Smoking Status: Current every day smoker Tobacco Type: Cigarettes How Often Do You Have a Drink Containing Alcohol: Never Recent Travel in [facility] [place] within the Last 8 Weeks: No Recent Out of Country Travel within the Last 8 Weeks: No Substance Abuse Detail Opiates: Substance Use Status: Active Route Used Substance Abuse: Intravenously Reason for Use: Get High Immunization History Tetanus Immunization: >5 Years Exam Const General: cooperative and acute distress (related to pain) mild Nutritional Appearance: well nourished Orientation: alert, awake and oriented x3 HENMT Head: normocephalic and atraumatic Nose: no nasal discharge and no epistaxis Mouth: moist mucous membranes Eyes Sclera: normal sclerae Pupils: PERRL Neck Neck: trachea midline and no JVD Resp Effort & Inspection: no use of accessory muscles Auscultation: clear to auscultation bilaterally Cardio Rate: regular rate Rhythm: regular rhythm Heart Sounds: no murmurs GI Inspection: non-distended Palpation: soft, no hepatosplenomegaly and nontender Back/Spine/Pelvis Back: no CVA tenderness Cervical Spine: No cervical spinal tenderness Thoracic/Lumbar Spine: No thoracic spinal tenderness, No lumbar spinal tenderness and other (The patient has paraspinal muscle tenderness on palpation along the right side of the lower lumbar spine and this extends over to the SI joint area, however there is no edema, erythema, warmth, or overlying skin changes.) Skin General: dry skin (warm) Neuro General: alert, awake and oriented x3 Cranial Nerves: CN's II-XI intact bilaterally Speech: speech normal Motor: strength 5/5 throughout and no movement abnormalities noted Sensory Exam: no sensory deficits noted Extrem General: normal to inspection, no clubbing, no cyanosis and no edema Psych Mood: congruent mood Affect: normal affect Judgment: judgment good Course Initial Documented Vital Signs Temperature 98.6 F 03/14/18 21:53 Pulse Rate 114 H 03/14/18 21:53 Respiratory Rate 19 03/14/18 21:53 Blood Pressure 142/73 H 03/14/18 21:53 Pulse Oximetry 99 03/14/18 21:53 Last Documented Vital Signs Temperature 98 F 03/16/18 04:00 Pulse Rate 68 03/16/18 04:00 Respiratory Rate 15 03/16/18 04:00 Blood Pressure 142/92 H 03/16/18 04:00 Pulse Oximetry 99 03/16/18 04:00 Medical Decision Making MDM Narrative Medical decision making narrative: During the course of the patient's emergency department visit, the patient's history, examination, and differential diagnosis were reviewed with the patient. The patient was placed on a hand funnel coater with oximetry and frequent blood pressure monitoring. The patient had IV access obtained and blood work sent for analysis. Diagnostic evaluation was started regarding the patient's increasing back pain with a recent history of epidural abscess involving the lumbar spine. The patient's electronic medical record was reviewed. The patient had no imaging done earlier today. The patient's laboratory studies were essentially unremarkable. The patient was given a dose of Zosyn IV. Case management was made aware of the patient's case. She did discuss the patient's case further with the pharmacy. The patient could be given a dose of Levaquin, 1 pill dispensed and tomorrow approved for the 10-week course which case management would fill out a need form for. In the meantime, as the patient does agree to MRI, MRI will need to be done first to evaluate for worsening abscess prior to discharge on the oral antibiotic. The patient was provided Ativan 1 mg IV to obtain the MRI. The patient's diagnostic studies revealed a white count of 5.9, hemoglobin 10.3, platelets 180 with a monocyte count of 8.3. Chemistry is remarkable for an anion gap of 3 , calcium 8.2. Lactic acid 0.7. The patient's sedimentation rate is 46. The patient's MRI of the lumbar spine reveals slight progression in the ventral epidural fluid collection at L2-L3 with findings consistent with L2-L3 discitis , adjacent osteomyelitis, and epidural abscess. The epidural abscess is not percutaneously accessible for drainage given its location and size. The patient had vancomycin 1 g IV added to her current antibiotic regimen. The patient's case including history, pertinent physical examination findings, and laboratory studies were discussed with Dr. Ward. It was agreed that the patient would be admitted to the hospitalist service. The patient's results were discussed with the patient, including the plan of care. I explained that further testing and/ or monitoring is indicated based on the patient's history, examination, and/ or laboratory findings. Therefore, I recommended admission for additional evaluation. The patient expressed understanding and was agreeable with this plan. The patient was admitted to the hospital in guarded condition and sent to a bed under the care of the [facility] service. Medical Screen Exam Complete: Yes Emergency Medical Condition: Yes Differential Diagnosis Differential Diagnosis: Enlarging epidural abscess, versus failure of outpatient management, versus sepsis Medical Records Medical records reviewed: Yes I reviewed the patient's medical records. Lab Data Lab results reviewed: Yes I reviewed the patient's lab results. Result diagrams: 03/16/18 04:15 03/16/18 04:15 Lab Results 03/14/18 03/14/18 03/14/18 Range/Units 22:52 22:52 22:52 WBC 5.9 (4.0-11.0) th/mm3 RBC 4.10 (4.00-5.30) mil/mm3 Hgb 10.3 L (11.6-15.3) gm/dL Hct 30.7 L (35.0-46.0) % MCV 75.0 L (80.0-100.0) fL MCH 25.0 L (27.0-34.0) pg MCHC 33.4 (32.0-36.0) % RDW 15.2 (11.6-17.2) % Plt Count 180 (150-450) th/mm3 MPV 7.3 (7.0-11.0) fL Neut % (Auto) 65.1 (16.0-70.0) % Lymph % (Auto) 23.8 (9.0-44.0) % [place] % (Auto) 8.3 H (0.0-8.0) % Eos % (Auto) 2.1 (0.0-4.0) % Baso % (Auto) 0.7 (0.0-2.0) % Neut # (Auto) 3.8 (1.8-7.7) th/mm3 Lymph # (Auto) 1.4 (1.0-4.8) th/mm3 [place] # (Auto) 0.5 (0.0-0.9) th/mm3 Eos # (Auto) 0.1 (0.0-0.4) th/mm3 Baso # (Auto) 0.0 (0.0-0.2) th/mm3 WBC Differential . Differential Comment Auto diff final ESR (0-20) mm/hr Sodium 141 (136-145) meq/L Potassium 3.9 (3.5-5.1) meq/L Chloride 107 (98-107) meq/L Carbon Dioxide 30.6 (21.0-32.0) meq/L Anion Gap 3 L (5-15) meq/L BUN 10 (7-18) mg/dL Creatinine 0.61 (0.50-1.00) mg/dL Estimated GFR Greater than 89 (>89) mL/min Random Glucose 90 (74-106) mg/dL Lactic Acid 0.7 (0.4-2.0) mmol/L Calcium 8.2 L (8.5-10.1) mg/dL Total Bilirubin (0.2-1.0) mg/dL AST (15-37) U/L ALT (10-53) U/L Alkaline Phosphatase (45-117) U/L Total Protein (6.4-8.2) g/dL Albumin (3.4-5.0) g/dL 03/14/18 03/16/18 03/16/18 Range/Units 22:52 04:15 04:15 WBC 5.2 (4.0-11.0) th/mm3 RBC 4.06 (4.00-5.30) mil/mm3 Hgb 10.2 L (11.6-15.3) gm/dL Hct 31.0 L (35.0-46.0) % MCV 76.3 L (80.0-100.0) fL MCH 25.0 L (27.0-34.0) pg MCHC 32.8 (32.0-36.0) % RDW 15.1 (11.6-17.2) % Plt Count 181 (150-450) th/mm3 MPV 7.1 (7.0-11.0) fL Neut % (Auto) 57.4 (16.0-70.0) % Lymph % (Auto) 29.1 (9.0-44.0) % [place] % (Auto) 10.3 H (0.0-8.0) % Eos % (Auto) 2.5 (0.0-4.0) % Baso % (Auto) 0.7 (0.0-2.0) % Neut # (Auto) 3.0 (1.8-7.7) th/mm3 Lymph # (Auto) 1.5 (1.0-4.8) th/mm3 [place] # (Auto) 0.5 (0.0-0.9) th/mm3 Eos # (Auto) 0.1 (0.0-0.4) th/mm3 Baso # (Auto) 0.0 (0.0-0.2) th/mm3 WBC Differential . Differential Comment Auto diff final ESR 46 H (0-20) mm/hr Sodium 139 (136-145) meq/L Potassium 3.8 (3.5-5.1) meq/L Chloride 107 (98-107) meq/L Carbon Dioxide 25.9 (21.0-32.0) meq/L Anion Gap 6 (5-15) meq/L BUN 8 (7-18) mg/dL Creatinine 0.48 L (0.50-1.00) mg/dL Estimated GFR Greater than 89 (>89) mL/min Random Glucose 89 (74-106) mg/dL Lactic Acid (0.4-2.0) mmol/L Calcium 8.0 L (8.5-10.1) mg/dL Total Bilirubin 0.5 (0.2-1.0) mg/dL AST 39 H (15-37) U/L ALT 74 H (10-53) U/L Alkaline Phosphatase 69 (45-117) U/L Total Protein 7.7 D (6.4-8.2) g/dL Albumin 2.7 L (3.4-5.0) g/dL Imaging Data Radiologist's impression: Lumbar Spine MRI 03/15/18 22:42 CONCLUSION: 1. Slight progression in the ventral epidural fluid collection at L2-L3 with findings consistent with L2-L3 discitis, adjacent osteomyelitis, and epidural abscess. The epidural abscess is not percutaneously accessible for drainage given its location and size. Discharge Plan Discharge Disposition Patient Disposition: 28 Still Patient Discharge Order Discharge Orders: ED Use Only Admit Order (Routine); Ordered 03/15/18 Ordered By: Tracy Valdez Discharge Details Diagnosis: Abscess in epidural space of lumbar spine Physicians Team ED Provider: Tracy Valdez Primary Care Provider: UNKNOWN, Attending Provider: Ecoh Mondragon Other Providers: Christian Walden ; Berlin Bowling Status ED Status: Left Department Discharge Information Discharge Date/Time: 03/15/18 02:10
[2018-03-14 23:20] LABS: Baso % (Auto) 0.7 % (0.0-2.0); Eos # (Auto) 0.1 th/mm3 (0.0-0.4); Eos % (Auto) 2.1 % (0.0-4.0); Hematocrit 30.7 % (35.0-46.0); Hemoglobin 10.3 gm/dL (11.6-15.3); Lymph # (Auto) 1.4 th/mm3 (1.0-4.8); Lymph % (Auto) 23.8 % (9.0-44.0); Mean Corpuscular HGB Conc 33.4 % (32.0-36.0); Mean Platelet Volume 7.3 fL (7.0-11.0); Mono # (Auto) 0.5 th/mm3 (0.0-0.9); Mono % (Auto) 8.3 % (0.0-8.0); Neut # (Auto) 3.8 th/mm3 (1.8-7.7); Neut % (Auto) 65.1 % (16.0-70.0); Platelet Count 180 th/mm3 (150-450); Red Cell Distribution Width 15.2 % (11.6-17.2); White Blood Count 5.9 th/mm3 (4.0-11.0)
[2018-03-14 23:22] LABS: Anion Gap 3 meq/L (5-15); Blood Urea Nitrogen 10 mg/dL (7-18); Calcium 8.2 mg/dL (8.5-10.1); Carbon Dioxide 30.6 meq/L (21.0-32.0); Chloride 107 meq/L (98-107); Glomerular Filtration Rate Greater Than 89 mL/min (>89); Glucose,Random 90 mg/dL (74-106); Potassium 3.9 meq/L (3.5-5.1); Sodium 141 meq/L (136-145)
[2018-03-14] MEDS ORDERED: Gadobutrol PF 10 MMOL/10 ML Vial (for RAD) IV.SIG ONE (23:53)
--- NOTE | 2018-03-15 00:19 | MR ---
EXAM DATE: 03/15/2018 12:05 AM EST AGE/SEX: 28 years / Female INDICATIONS: . Post abscess drain from lumber spine due to IVDU. CLINICAL DATA: This is the patient's subsequent encounter. Patient reports that signs and symptoms h ave been present for 2 months and indicates a pain score of 9/10. MEDICAL/SURGICAL HISTORY: None. . Hand sx, LSP sx. COMPAR[place]: [facility] [place] LUMBAR [place] W & W/O CONTRAST, 02/21/2018. . TECHNIQUE: Multiplanar, multisequence MRI examination of the lumbar spine was performed without and with 8 ml Gadavist (gadobutrol) contrast as a single exam dose. FINDINGS: The most caudal-appearing lumbar vertebra is numbered as L5. Vertebra: Homogeneous signal. Normal alignment. Conus: Normal level and configuration. Post Contrast: Abnormal enhancement involving the L2 and L3 vertebral bodies and intervening disc sp nayely with small linear area of fluid involving the ventral aspect of the central canal within the midl ine. This measures 2.7 x 1.7 x 0.4 cm. This has progressed slightly from the prior study. T12-L1: The thecal sac has a normal diameter. No evidence of disc bulge or protrusion. The neural foramina are patent bilaterally. L1-L2: The thecal sac has a normal diameter. No evidence of disc bulge or protrusion. The neural foramina are patent bilaterally. L2-L3: There is loss of height with enhancement involving the posterior aspects of the annulus. The disc space narrowing has progressed from the prior study as has the enhancement. There is a small ep idural fluid collection ventrally within the central canal that is slightly larger from the prior exa m. Measurements are given above. This generates mild narrowing of the central canal extending from th e mid L2 vertebral body to the inferior margin of the L3 vertebral body. L3-L4: Disc desiccation with mild disc space narrowing. There is a mild broad-based disc bulge. Flory tral canal and lateral recesses remain patent. Facet joints are unremarkable.. L4-L5: Disc desiccation with mild disc space narrowing and broad-based disc bulge eccentric to the left. This in combination with mild ligament flavum hypertrophy and bony hypertrophy of the facets ca uses narrowing of the left lateral recess. Right lateral recess and central canal are patent. Neural foramina are patent.. L5-S1: Mild disc desiccation with a right posterior lateral disc bulge. Lateral recesses, central c anal, and neural foramen are patent.. CONCLUSION: 1. Slight progression in the ventral epidural fluid collection at L2-L3 with findings consistent wit h L2-L3 discitis, adjacent osteomyelitis, and epidural abscess. The epidural abscess is not percutane ously accessible for drainage given its location and size. Electronically signed by: Dirk Rashid MD 03/15/2018 12:18 AM EST
[2018-03-15] MEDS ORDERED: Vancomycin Inj 1,000 MG in Sodium Chlor 0.9% Inj 250 ML IV.SIG ONE (00:40)
[2018-03-15] MEDS ORDERED: Vancomycin Consult Pharmacy OTHER PRN (00:42)
[2018-03-15] MEDS ORDERED: Bisacodyl 10 MG Supp RECTAL PRN (00:42)
[2018-03-15] MEDS ORDERED: Acetaminophen 325 MG Tablet PO PRN (00:42)
--- NOTE | 2018-03-15 01:56 | P.HPIM ---
History of Present Illness Primary Care Physician: UNKNOWN History of Present Illness: This is a 28-year-old female with a PMH of Hepatitis C, IVDU and h/o Spinal Abscess who presented to the ER w/ complaints of back pain x3 days. Recent admit 02/21-03/09/18 for similar complaints, MRI L-Spine 02/21/18 w/ epidural abscess, s/p eval by Dr. Walden w/ Neurosurgery, recommendation for continuation of IV Abx, no surgical intervention, s/p aspiration by IR w/ cultures negative, B/C +Serratia, Echo w/ no evidence of vegetations, ultimately d/c'd on Levaquin PO x10wk per ID and instructions to follow up w/ GI as outpatient for new diagnosis of Hepatitis C. Pt returned to ER earlier today on 03/14/18 for c/o worsening back pain, states she did not fill prescription for Levaquin and off antibiotics since discharge. MRI L-Spine ordered by ER physician at that time for concern of ongoing infection, however pt refused MRI, was to be admitted for IV Abx, however LEFT AMA. Returns now w/ ongoing back pain. Finally agreed to MRI L-spine which shows progression of ventral epidural fluid collection at L2-L3 consistent w/ discitis, adjacent osteomyelitis and epidural abscess, no percutaneously accessible for drainage. S/p Vanc in ER. Pt requesting pain medication repeatedly. - Diagnosis (1) Epidural abscess (2) IVDU (intravenous drug user) (3) Hepatitis C Inpatient Certification: I certify that the inpatient services were ordered in accordance with Medicare regulations governing the order. This includes certification that hospital inpatient services are reasonable and necessary and in the case of services not specified as inpatient-only under 42 CFR 419.22(n), that they are appropriately provided as inpatient services in accordance to with the 2-midnight benchmark under 43 CFR 412.3(e) Estimated Total Length of Stay (Days): 2 Plans for Post Hospital Care: Not yet determined Review of Systems PAST FAMILY HISTORY: Reviewed. No h/o DM or CAD All other systems reviewed negative except as stated in HPI PMFSH - History History Provided By: Patient - Medical History Medical History: Medical History (Last Reviewed 03/14/18 @ 23:07 by Tracy Valdez MD) Depression IV drug abuse Osteomyelitis of lumbar vertebra Sciatica - Surgical History Surgical History: Surgical History (Last Reviewed 03/14/18 @ 23:07 by Tracy Valdez MD) H/O hand surgery - Tobacco History Second Hand Smoke Exposure: Yes Tobacco Use In Past 30 Days: Yes Smoking Status: Current every day smoker Tobacco Type: Cigarettes - Alcohol History How Often Do You Have a Drink Containing Alcohol: Never - Substance Use History Substance History: Active Abuse - Substance Use Type Opiates Status: Active Route Used: Intravenously Reason for Use: Get High - Travel History Recent Travel in the [place] Within the Last 8 Weeks: No Recent Travel Out of the Country Within the Last 8 Weeks: No - Immunization History Tetanus Immunization: >5 Years Medications and Allergies Active Medications: Active Medications Acetaminophen (Tylenol) 650 mg PO Q4H PRN PRN Reason: Temp > 100.4 Al Hydroxide/Mg Hydroxide (Milk Of Magnesia Liq) 30 ml PO Q12H PRN PRN Reason: Mild Constipation Bisacodyl (Dulcolax Supp) 10 mg RECTAL DAILY PRN PRN Reason: SEVERE CONSITIPATION Cefepime HCl 1,000 mg/ Sodium (Chloride) 100 mls @ 200 mls/hr IV.SIG Q12H BRITTANI Sodium Chloride (Ns Inj) 1,000 mls @ 100 mls/hr IV.CONT .Q10H BRITTANI Vancomycin HCl 1,500 mg/ (Sodium Chloride) 515 mls @ 250 mls/hr IV.SIG ONCE ONE Stop: 03/15/18 03:33 Lactulose (Lactulose Liq) 30 ml PO DAILY PRN PRN Reason: SEVERE CONSITIPATION Lorazepam (Ativan Inj) 1 mg IV.PUSH Q2H PRN PRN Reason: AGITATION/WITHDRAWAL Ondansetron HCl (Zofran Inj) 4 mg IV.PUSH Q6H PRN PRN Reason: NAUSEA OR VOMITING Oxycodone HCl (Roxicodone) 5 mg PO Q4H PRN PRN Reason: PAIN 3-5 Oxycodone HCl (Roxicodone) 10 mg PO Q4H PRN PRN Reason: PAIN 6-10 Last Admin: 03/15/18 01:23 Dose: 10 mg Pharmacy Profile Note (Vancomycin Consult Pharmacy) 1 each OTHER UNSCH PRN PRN Reason: Pharmacy to dose Senna/Docusate Sodium (Liliam-Colace) 1 tab PO BID BRITTANI Sennosides (Senokot) 17.2 mg PO Q12H PRN PRN Reason: Moderate Constipation Sodium Chloride (Ns Flush) 2 ml IV.FLUSH BID BRITTANI Sodium Chloride (Ns Flush) 2 ml IV.FLUSH PRN PRN PRN Reason: FLUSH AFTER USING IV ACCESS Allergies Allergy/AdvReac Type Severity Reaction Status Date / Time Sulfa (Sulfonamide Allergy Severe Anaphylaxis Verified 03/14/18 21:53 Antibiotics) Exam Vital signs: Vital Signs 03/14/18 21:53 Temperature 98.6 F Pulse Rate 114 H Respiratory Rate 19 Blood Pressure 142/73 H Pulse Oximetry 99 Intake & Output 03/14/18 03/14/18 03/15/18 06:59 18:59 06:59 Weight 79.379 kg Narrative: PE: GENERAL: Young white female anxious, tearful, crying. SKIN: Focused skin assessment warm and dry. HEENT: PERRLA, EOMI. No scleral icterus or conjunctival pallor. No lid lag or facial droop. CARDIOVASCULAR: Regular rate and rhythm. No obvious murmurs to auscultation. No chest tenderness to palpation. RESPIRATORY: No obvious rhonchi or wheezing. Clear to auscultation. Breath sounds equal bilaterally. GASTROINTESTINAL: Abdomen soft, non-tender, nondistended. BS normal. MUSCULOSKELETAL: Extremities without clubbing, cyanosis, or edema. No obvious deformities. NEUROLOGICAL: Awake, alert and oriented x4. No focal neurologic deficits. Moving both upper and lower extremities spontaneously. PSYCHIATRIC: Appropriate mood and affect. Insight and judgment normal. Results - Labs CBC & Chem 7: 03/14/18 22:52 03/14/18 22:52 Labs: Short CBC 03/14/18 Range/Units 22:52 WBC 5.9 (4.0-11.0) th/mm3 Hgb 10.3 L (11.6-15.3) gm/dL Hct 30.7 L (35.0-46.0) % Plt Count 180 (150-450) th/mm3 BMP 03/14/18 22:52 Sodium 141 Potassium 3.9 Chloride 107 Carbon Dioxide 30.6 BUN 10 Creatinine 0.61 Calcium 8.2 L - Imaging Impressions Lumbar Spine MRI 03/15/18 22:42 CONCLUSION: 1. Slight progression in the ventral epidural fluid collection at L2-L3 with findings consistent with L2-L3 discitis, adjacent osteomyelitis, and epidural abscess. The epidural abscess is not percutaneously accessible for drainage given its location and size. Caprini VTE Risk Assessment Caprini VTE Risk Assessment: No/Low Risk (score <= 1) Caprini Risk Assessment Model: Point Value = 1 Point Value = 2 Point Value = 3 Point Value = 5 Age 41-60 Minor surgery BMI > 25 kg/m2 Swollen legs Varicose veins or History of unexplained or recurrent spontaneous Oral contraceptives or hormone replacement Sepsis (< 1 month) Serious lung disease, including pneumonia (< 1 month) Abnormal pulmonary function Acute myocardial infarction Congestive heart failure (< 1 month) History of inflammatory bowel disease Medical patient at bed rest Age 61-74 Arthroscopic surgery Major open surgery (> 45 min) Laparoscopic surgery (> 45 min) Malignancy Confined to bed (> 72 hours) Immobilizing plaster cast Central venous access Age >= 75 History of VTE Family history of VTE Factor V Leiden Prothrombin [id number] Lupus anticoagulant Anticardiolipin antibodies Elevated serum homocysteine Heparin-induced thrombocytopenia Other congenital or acquired thrombophilia Stroke (< 1 month) Elective arthroplasty Hip, pelvis, or leg fracture Acute spinal cord injury (< 1 month) Prophylaxis Regimen: Total Risk Factor Score Risk Level Prophylaxis Regimen 0-1 Low Early ambulation 2 Moderate Order ONE of the following: *Sequential Compression Device (SCD) *Heparin 5000 units SQ BID 3-4 Higher Order ONE of the following medications: *Heparin 5000 units SQ TID *Enoxaparin/Lovenox 40 mg SQ daily (WT < 150 kg, CrCl > 30 mL/min) *Enoxaparin/Lovenox 30 mg SQ daily (WT < 150 kg, CrCl > 10-29 mL/min) *Enoxaparin/Lovenox 30 mg SQ BID (WT < 150 kg, CrCl > 30 mL/min) AND/OR *Sequential Compression Device (SCD) 5 or more Highest Order ONE of the following medications: *Heparin 5000 units SQ TID (Preferred with Epidurals) *Enoxaparin/Lovenox 40 mg SQ daily (WT < 150 kg, CrCl > 30 mL/min) *Enoxaparin/Lovenox 30 mg SQ daily (WT < 150 kg, CrCl > 10-29 mL/min) *Enoxaparin/Lovenox 30 mg SQ BID (WT < 150 kg, CrCl > 30 mL/min) AND *Sequential Compression Device (SCD) Assessment and Plan - Assessment (1) Epidural abscess Code(s): G06.2 - Extradural and subdural abscess, unspecified Status: Acute (2) IVDU (intravenous drug user) Code(s): F19.90 - Other psychoactive substance use, unspecified, uncomplicated Status: Acute (3) Hepatitis C Code(s): B19.20 - Unspecified viral hepatitis C without hepatic coma Status: Acute - Plan A/P: 1. Epidural Abscess: previous admit 02/21-03/09/18 for back pain, MRI L-Spine w/ epidural abscess, s/p IR drainage, cultures negative for growth, however B/C +Serratia, d/c'd on Levaquin PO x10wks, however pt non-compliant, has not filled antibiotics, now w/ recurrent back pain. MRI L-Spine w/ slight progression of ventral epidural fluid collection L2-L3 consistent w/ discitis, adjacent osteomyelitis and epidural abscess not percutaneously accessible. Previously LEFT AMA and refused intervention, now agreeable. S/p Vanc in ER, continue IV Abx, follow up cultures, Consult NxSx as abscess not accessible by IR, consult ID for eval/recommendations. 2. IVDU: Ongoing, pt repeatedly requesting pain medication, will start Oxycodone. 3. Hepatitis C: newly diagnosed on last admission, d/c'd w/ instructions to follow w/ GI as outpatient, however pt unlikely to follow as non-compliant, Consult GI as needed. 4. DVT Prophylaxis: SCD/Teds 5. Social work for d/c planning as needed. 6. Case discussed w/ ER physician at length, labs/records/imaging reviewed by me.
[2018-03-15] MEDS: Sod Chloride 0.9% Inj 1,000 ML IV.CONT SCH ×3 (02:52→22:09)
[2018-03-15] MEDS: Vancomycin Inj 1,500 MG in Sodium Chlor 0.9% Inj 500 ML IV.SIG ONE ×2 (02:53→03:28)
[2018-03-15] MEDS: Senna/Docusate Sodium 8.6/50 MG Tablet PO SCH ×2 (10:13→21:09)
--- NOTE | 2018-03-15 10:57 | P.PNIM ---
Subjective Interval history: Follow-up epidural abscess, low back pain, IVDU, noncompliance with treatment. Patient seen and examined laying in bed, complaint of right lower back pain, increased with movement and touching, relieved with rest and pain medication. Patient stated she stopped taking IV drugs for a month now since she lived with her father. Patient denies any headache or dizziness, denies any chest pain or shortness of breath, denies any abdominal pain, nausea, vomiting, diarrhea or constipation. Patient denies any fever or chills. Nurse reported no acute concerns overnight Physical Exam Vital signs: Vital Signs 03/14/18 21:53 03/15/18 02:00 03/15/18 04:00 Temperature 98.6 F 98.8 F 98.7 F Pulse Rate 114 H 85 84 Respiratory Rate 19 18 18 Blood Pressure 142/73 H 127/80 133/75 Pulse Oximetry 99 98 98 Intake & Output 03/14/18 03/15/18 03/15/18 18:59 06:59 18:59 Intake Total 780 / 780 515 / 515 Balance 780 / 780 515 / 515 Weight 89 kg Intake: IV 100 / 100 515 / 515 Maxipime Inj 1,000 MG In NS Inj 100 / 100 100 ML @ 200 mls/hr IV.SIG Q12H [facility] Rx#:[id number] Vancomycin Inj 1,500 MG In NS 515 / 515 Inj 500 ML @ 250 mls/hr IV.SIG ONCE ONE Rx#:[id number] Oral 680 / 680 Other: # Voids 1 Weight On Admission 89 kg Narrative: GENERAL: Well-developed, well-nourished, male in no apparent distress SKIN: Warm and dry. HEAD: Atraumatic. Normocephalic. EYES: Pupils equal and round. No scleral icterus. No injection or drainage. ENT: No nasal bleeding or discharge. Mucous membranes pink and moist. NECK: Trachea midline. No JVD. CARDIOVASCULAR: Regular rate and rhythm. RESPIRATORY: No accessory muscle use. Clear to auscultation. Breath sounds equal bilaterally. GASTROINTESTINAL: Abdomen soft, non-tender, nondistended. Hepatic and splenic margins not palpable. MUSCULOSKELETAL: Extremities without clubbing, cyanosis, or edema. No obvious deformities. NEUROLOGICAL: Awake and alert. No obvious cranial nerve deficits. Motor grossly within normal limits. Generalized weakness moving all 4 extremities normal speech. PSYCHIATRIC: Appropriate mood and affect; insight and judgment normal. Results - Labs CBC & Chem 7: 03/14/18 22:52 03/14/18 22:52 Laboratory Results - last 24 hr 03/14/18 03/14/18 03/14/18 22:52 22:52 22:52 WBC 5.9 RBC 4.10 Hgb 10.3 L Hct 30.7 L MCV 75.0 L MCH 25.0 L MCHC 33.4 RDW 15.2 Plt Count 180 MPV 7.3 Neut % (Auto) 65.1 Lymph % (Auto) 23.8 Eddy % (Auto) 8.3 H Eos % (Auto) 2.1 Baso % (Auto) 0.7 Neut # (Auto) 3.8 Lymph # (Auto) 1.4 Eddy # (Auto) 0.5 Eos # (Auto) 0.1 Baso # (Auto) 0.0 WBC Differential . Differential Comment Auto diff final ESR Sodium 141 Potassium 3.9 Chloride 107 Carbon Dioxide 30.6 Anion Gap 3 L BUN 10 Creatinine 0.61 Estimated GFR Greater than 89 Random Glucose 90 Lactic Acid 0.7 Calcium 8.2 L 03/14/18 22:52 WBC RBC Hgb Hct MCV MCH MCHC RDW Plt Count MPV Neut % (Auto) Lymph % (Auto) Eddy % (Auto) Eos % (Auto) Baso % (Auto) Neut # (Auto) Lymph # (Auto) Eddy # (Auto) Eos # (Auto) Baso # (Auto) WBC Differential Differential Comment ESR 46 H Sodium Potassium Chloride Carbon Dioxide Anion Gap BUN Creatinine Estimated GFR Random Glucose Lactic Acid Calcium - Imaging Impressions Lumbar Spine MRI 03/15/18 22:42 CONCLUSION: 1. Slight progression in the ventral epidural fluid collection at L2-L3 with findings consistent with L2-L3 discitis, adjacent osteomyelitis, and epidural abscess. The epidural abscess is not percutaneously accessible for drainage given its location and size. Assessment and Plan - Assessment (1) Epidural abscess Code(s): G06.2 - Extradural and subdural abscess, unspecified Status: Acute (2) IVDU (intravenous drug user) Code(s): F19.90 - Other psychoactive substance use, unspecified, uncomplicated Status: Acute (3) Hepatitis C Code(s): B19.20 - Unspecified viral hepatitis C without hepatic coma Status: Acute - Plan This is a 28-year-old female with a PMH of Hepatitis C, IVDU and h/o Spinal Abscess who presented to the ER w/ complaints of back pain x3 days with recent admission for epidural abscess, on 18s/p eval by Dr. Walden w/ Neurosurgery , d/c'd on Levaquin PO x10wk however failed to fill the prescription. Pt returned to ER on 03/14/18 for c/o worsening back pain, LEFT AMA. Returns now w / ongoing back pain. Finally agreed to MRI L-spine which shows progression of ventral epidural fluid collection at L2-L3 consistent w/ discitis, adjacent osteomyelitis and epidural abscess, no percutaneously accessible for drainage. Epidural Abscess Back pain Non-compliance with treatment -Previous admit 02/21-03/09/18 for back pain, MRI L-Spine w/ epidural abscess, s /p IR drainage, cultures negative for growth, however B/C +Serratia, d/c'd on Levaquin PO x10wks, however pt non-compliant, has not filled antibiotics, now w / recurrent back pain. - MRI L-Spine w/ slight progression of ventral epidural fluid collection L2-L3 consistent w/ discitis, adjacent osteomyelitis and epidural abscess not percutaneously accessible -Previously LEFT AMA and refused intervention, - continue IV Abx vancomycin -Blood culture x2 on 02/21/18 Serratia marcescens, repeat blood culture on no growth in 1 day, follow results -Consult neurosurgeon as abscess not accessible by IR, appreciate recommendation -Discussed with plan with ID, Dr. Jared GARDINER Chronic pain Ongoing -pt repeatedly requesting pain medication, -Oxycodone, taper dose to prevent dependence -Monitor response Hepatitis C -newly diagnosed on last admission, -follow w/ GI as outpatient, however pt unlikely to follow as non-compliant -Consult GI as needed. Anxiety/depression Acute on chronic -Restart on home dose of Zoloft -Monitor mental status DVT Prophylaxis: SCD/Teds Code Status: Full code Discussed Condition With: Patient and nurse Discharge Planning: Discharge planning in 2-3 days when cleared with neurosurgeon and ID
[2018-03-15] MEDS: Vancomycin Inj 1,500 MG in Sodium Chlor 0.9% Inj 500 ML IV.SIG SCH (14:57)
--- NOTE | 2018-03-15 15:34 | MB ---
cc: Berlin Bowling MD DATE: 03/15/2018 REQUESTING PHYSICIAN: Liyah Ward MD REASON FOR VISIT: Lumbar diskitis/osteo/abscess. IVDU. HISTORY OF PRESENT ILLNESS: This is a 28-year-old white female who presented to the emergency department with back pain. The patient was recently admitted to the hospital and diagnosed with abscess and diskitis of the lumbar spine and also was noted to have osteomyelitis as well. The patient was in the hospital and was treated with IV antibiotics. An aspiration procedure was performed on the spine and the culture was negative. Blood cultures were positive with Serratia in 4 of 4 bottles. The patient was treated with IV antibiotics and she improved. Her back pain had gotten a lot better and she was transitioned to oral antibiotic in the form of Levaquin and was discharged to continue antibiotics with Levaquin for 10 weeks. She was discharged on 03/06/2018. The patient stated that she was unable to fill the prescription. She states that she looked all over and could not get the prescription filled and it was expensive and she could not afford the medication. She has been without antibiotics since discharge from the hospital. She presented to the emergency department again because her pain worsened and she got to the point where she was ambulating with a cane that belongs to her father. She was evaluated in the emergency department and repeat MRI of the spine showed slight progression in the vertebral epidural fluid collection at L2-L3 with findings consistent with L2-L3 diskitis, adjacent osteomyelitis and epidural abscess. The epidural abscess is noted to not be percutaneously accessible for drainage because of its location and size. Neurosurgery has been consulted. The patient is currently complaining of pain and states that she is not getting enough pain medication. When I entered the room, she broke into tears and states that she is in severe pain. She denies other symptoms. She denies use of IV drugs since she was discharged from the hospital. Her white blood cell count is 5.9. PAST MEDICAL HISTORY: Hepatitis C, history of IV drug abuse. The patient denies recent IV drug use. History of hand surgery, history of right foot surgery. ALLERGIES: SULFA. MEDICATIONS: 1. Cefepime. 2. Oxycodone. 3. Vancomycin. SOCIAL HISTORY: The patient smokes half a pack of cigarettes a day. Denies alcohol use. Denies illicit drugs. FAMILY HISTORY: Noncontributory. REVIEW OF SYSTEMS: All systems have been reviewed and are negative, except for pain in the lower back. PHYSICAL EXAMINATION: GENERAL: This is a well-developed female who is in no acute distress. She appears somewhat disheveled. VITAL SIGNS: Includes temperature 98.2, BP 126/83, respirations 20, heart rate 86. HEENT: Head is atraumatic. Extraocular movements grossly intact. Pupils reactive to light. No icterus. Oropharynx moist mucosa without lesions. NECK: Supple without adenopathy. LUNGS: Clear to auscultation. HEART: Regular S1 and S2. No audible murmurs. ABDOMEN: Bowel sounds present. Soft, no tenderness appreciated. RECTAL: Not performed. BACK: Tenderness to palpation of the lower back on the right side of the vertebral column. EXTREMITIES: No clubbing, cyanosis or edema. SKIN: No rash. NEUROLOGIC: No gross focal finding. PSYCHIATRIC: The patient is calm. LABORATORY DATA: WBC 5.9, platelets 180. Creatinine 0.61. Estimated GFR 89. Sodium 141. IMPRESSION: Lumbar vertebral abscess/diskitis/osteomyelitis. Recent bacteremia due to Serratia. It appears that the patient had begun to improve while she was on intravenous antibiotics in the hospital, but after discharge, she did not fill that antibiotic prescription and was without antibiotics, which may explain why she has deteriorated. RECOMMENDATIONS: 1. Continue cefepime, but increase the dose to 2 grams IV every 8 hours. 2. Continue vancomycin for now. 3. Use heating pad to the lower back. Because of the patient's inability to comply with medication and treatment, it may be feasible to just continue IV antibiotics in the hospital until she completes treatment and follow the sedimentation rate and C-reactive protein to assess response to treatment and at some point, repeat the radiographic studies as well. She really needs 6-8 weeks of IV antibiotic treatment. Thank you for this consultation. MD MARITZA Boggs/cathy , 02:51 PM , 03:07 PM
--- NOTE | 2018-03-15 17:31 | P.CONNS ---
History of Present Illness Primary Care Provider: Epidural abscess History of Present Illness: 28yoF IVDU who has been in and out of the hospital with epidural abscess. Returne with MRI showing some slight worsening. Had +blood cultures last admission but unable to get a biopsy due to ventral location, similar situation this admission. Patient remains ambulatory and neurologically intact. [facility] - History History Provided By: Patient - Medical History Medical History: Medical History (Last Reviewed 03/14/18 @ 23:07 by Tracy Valdez MD) Depression IV drug abuse Osteomyelitis of lumbar vertebra Sciatica - Surgical History Surgical History: Surgical History (Last Reviewed 03/14/18 @ 23:07 by Tracy Valdez MD) H/O hand surgery - Tobacco History Second Hand Smoke Exposure: Yes Tobacco Use In Past 30 Days: Yes Smoking Status: Current every day smoker Tobacco Type: Cigarettes - Alcohol History How Often Do You Have a Drink Containing Alcohol: Never - Substance Use History Substance History: Active Abuse - Substance Use Type Opiates Status: Active Route Used: Intravenously Reason for Use: Get High - Travel History Recent Travel in the [place] Within the Last 8 Weeks: No Recent Travel Out of the Country Within the Last 8 Weeks: No - Immunization History Tetanus Immunization: >5 Years Medications and Allergies Active Medications: Active Medications Acetaminophen (Tylenol) 650 mg PO Q4H PRN PRN Reason: Temp > 100.4 Al Hydroxide/Mg Hydroxide (Milk Of Magnesia Liq) 30 ml PO Q12H PRN PRN Reason: Mild Constipation Bisacodyl (Dulcolax Supp) 10 mg RECTAL DAILY PRN PRN Reason: SEVERE CONSITIPATION Sodium Chloride (Ns Inj) 1,000 mls @ 100 mls/hr IV.CONT .Q10H [facility] Last Admin: 03/15/18 02:52 Dose: 100 mls/hr Vancomycin HCl 1,500 mg/ (Sodium Chloride) 515 mls @ 250 mls/hr IV.SIG Q12H [facility] Last Admin: 03/15/18 14:57 Dose: 250 mls/hr Cefepime HCl 2,000 mg/ Sodium (Chloride) 100 mls @ 200 mls/hr IV.SIG Q8HR [facility] Lactulose (Lactulose Liq) 30 ml PO DAILY PRN PRN Reason: SEVERE CONSITIPATION Lorazepam (Ativan Inj) 1 mg IV.PUSH Q2H PRN PRN Reason: AGITATION/WITHDRAWAL Last Admin: 03/15/18 15:02 Dose: 1 mg Miscellaneous Information ([facility] Ordered Lab Info) 0 each OTHER ONCE ONE Stop: 03/16/18 14:46 Ondansetron HCl (Zofran Inj) 4 mg IV.PUSH Q6H PRN PRN Reason: NAUSEA OR VOMITING Oxycodone HCl (Roxicodone) 5 mg PO Q4H PRN PRN Reason: pain 5-10 Last Admin: 03/15/18 14:04 Dose: 5 mg Pharmacy Profile Note (Vancomycin Consult Pharmacy) 1 each OTHER UNSCH PRN PRN Reason: Pharmacy to dose Senna/Docusate Sodium (Liliam-Colace) 1 tab PO BID [facility] Last Admin: 03/15/18 10:13 Dose: Not Given Sennosides (Senokot) 17.2 mg PO Q12H PRN PRN Reason: Moderate Constipation Sertraline HCl (Zoloft) 50 mg PO DAILY [facility] Sodium Chloride (Ns Flush) 2 ml IV.FLUSH BID [facility] Last Admin: 03/15/18 10:13 Dose: Not Given Sodium Chloride (Ns Flush) 2 ml IV.FLUSH PRN PRN PRN Reason: FLUSH AFTER USING IV ACCESS Allergies Allergy/AdvReac Type Severity Reaction Status Date / Time Sulfa (Sulfonamide Allergy Severe Anaphylaxis Verified 03/14/18 21:53 Antibiotics) Exam Vital signs: Vital Signs 03/14/18 21:53 03/15/18 02:00 03/15/18 04:00 Temperature 98.6 F 98.8 F 98.7 F Pulse Rate 114 H 85 84 Respiratory Rate 19 18 18 Blood Pressure 142/73 H 127/80 133/75 Pulse Oximetry 99 98 98 03/15/18 08:00 03/15/18 12:00 Temperature 98.2 F 98.2 F Pulse Rate 87 86 Respiratory Rate 20 20 Blood Pressure 113/67 126/83 Pulse Oximetry 97 97 Intake & Output 03/14/18 03/15/18 03/15/18 18:59 06:59 18:59 Intake Total 780 / 780 515 / 515 Balance 780 / 780 515 / 515 Weight 89 kg Intake: IV 100 / 100 515 / 515 Maxipime Inj 1,000 MG In NS Inj 100 / 100 100 ML @ 200 mls/hr IV.SIG Q12H [facility] Rx#:[id number] Vancomycin Inj 1,500 MG In NS 515 / 515 Inj 500 ML @ 250 mls/hr IV.SIG ONCE ONE Rx#:[id number] Oral 680 / 680 Other: # Voids 1 Weight On Admission 89 kg Narrative: A&O x 3 CN II-XII intact Motor 5/5 UE/LE Results - Laboratory Findings CBC and BMP: 03/14/18 22:52 03/14/18 22:52 Abnormal lab findings: Abnormal Labs 03/14/18 03/14/18 03/14/18 22:52 22:52 22:52 Hgb 10.3 L Hct 30.7 L MCV 75.0 L MCH 25.0 L Eddy % (Auto) 8.3 H ESR 46 H Anion Gap 3 L Calcium 8.2 L Assessment and Plan - Plan 28yoF with persistent MIGUEL/osteodiscitis at L2/3, neurologically intact. Plan: Plan remains unchanged given intact status and positive cultures which are amenable to treatment. No indication for neurosurgical intervention.
[2018-03-16] MEDS: Vancomycin Inj 1,500 MG in Sodium Chlor 0.9% Inj 500 ML IV.SIG SCH ×2 (02:23→16:30)
[2018-03-16 04:48] LABS: Baso % (Auto) 0.7 % (0.0-2.0); Eos # (Auto) 0.1 th/mm3 (0.0-0.4); Eos % (Auto) 2.5 % (0.0-4.0); Hemoglobin 10.2 gm/dL (11.6-15.3); Lymph # (Auto) 1.5 th/mm3 (1.0-4.8); Lymph % (Auto) 29.1 % (9.0-44.0); Mean Corpuscular HGB Conc 32.8 % (32.0-36.0); Mean Corpuscular Volume 76.3 fL (80.0-100.0); Mean Platelet Volume 7.1 fL (7.0-11.0); Mono # (Auto) 0.5 th/mm3 (0.0-0.9); Mono % (Auto) 10.3 % (0.0-8.0); Neut % (Auto) 57.4 % (16.0-70.0); Platelet Count 181 th/mm3 (150-450); Red Blood Count 4.06 mil/mm3 (4.00-5.30); Red Cell Distribution Width 15.1 % (11.6-17.2); White Blood Count 5.2 th/mm3 (4.0-11.0)
[2018-03-16 05:13] LABS: Alanine Aminotransferase 74 U/L (10-53); Albumin 2.7 g/dL (3.4-5.0); Anion Gap 6 meq/L (5-15); Aspartate Aminotransferase 39 U/L (15-37); Blood Urea Nitrogen 8 mg/dL (7-18); Carbon Dioxide 25.9 meq/L (21.0-32.0); Chloride 107 meq/L (98-107); Glomerular Filtration Rate Greater Than 89 mL/min (>89); Glucose,Random 89 mg/dL (74-106); Potassium 3.8 meq/L (3.5-5.1); Sodium 139 meq/L (136-145)
[2018-03-16 05:16] LABS: Alkaline Phosphatase 69 U/L (45-117); Total Protein 7.7 g/dL (6.4-8.2)
[2018-03-16] MEDS: Sertraline 50 MG Tablet PO SCH (09:23)
[2018-03-16] MEDS: Senna/Docusate Sodium 8.6/50 MG Tablet PO SCH ×2 (09:24→21:03)
[2018-03-16] MEDS: Sod Chloride 0.9% Inj 1,000 ML IV.CONT SCH ×2 (10:38→17:28)
--- NOTE | 2018-03-16 14:04 | P.PNID ---
Subjective Remarks: She notes that she continues to have pain in her back. No other complaints. Afebrile. Develops pain in the lower back upon raising the right leg. 28-year-old white female who presented to the emergency department with back pain. The patient was recently admitted to the hospital and diagnosed with abscess and diskitis of the lumbar spine and also was noted to have osteomyelitis as well. The patient was in the hospital and was treated with IV antibiotics. An aspiration procedure was performed on the spine and the culture was negative. Blood cultures were positive with Serratia in 4 of 4 bottles. The patient was treated with IV antibiotics and she improved. Her back pain had gotten a lot better and she was transitioned to oral antibiotic in the form of Levaquin and was discharged to continue antibiotics with Levaquin for 10 weeks. She was discharged on 03/06/2018. She presented to the emergency department again because her pain worsened and she got to the point where she was ambulating with a cane that belongs to her father. She was evaluated in the emergency department and repeat MRI of the spine showed slight progression in the vertebral epidural fluid collection at L2-L3 with findings consistent with L2-L3 diskitis, adjacent osteomyelitis and epidural abscess. The epidural abscess is noted to not be percutaneously accessible for drainage because of its location and size. Neurosurgery was consulted. I Past Medical History: PAST MEDICAL HISTORY: Hepatitis C, history of IV drug abuse. The patient denies recent IV drug use. History of hand surgery, history of right foot surgery. Allergies/Adverse Reactions: Allergies Sulfa (Sulfonamide Antibiotics) Allergy (Severe, Verified 03/14/18 21:53) Anaphylaxis Objective Vital Signs 03/15/18 15:55 03/15/18 16:00 03/15/18 20:00 Temperature 98.4 F 98.5 F Pulse Rate 91 H 82 88 Respiratory Rate 20 17 Blood Pressure 120/75 137/81 Pulse Oximetry 97 98 03/15/18 23:20 03/16/18 04:00 03/16/18 08:00 Temperature 97.9 F 98 F 98.2 F Pulse Rate 82 68 57 L Respiratory Rate 17 15 18 Blood Pressure 118/78 142/92 H 127/74 Pulse Oximetry 98 99 98 03/16/18 12:00 Temperature 97.8 F Pulse Rate 74 Respiratory Rate 18 Blood Pressure 135/85 Pulse Oximetry 99 Intake & Output 03/15/18 03/16/18 03/16/18 18:59 06:59 18:59 Intake Total 2850 / 2850 1895 / 1895 1200 / 1200 Balance 2850 / 2850 1895 / 1895 1200 / 1200 Weight 87.3 kg Intake: IV 2130 / 2130 1415 / 1415 1200 / 1200 NS Inj 1,000 ML @ 100 mls/hr IV 1000 / 1000 700 / 700 1200 / 1200 .CONT .Q10H [facility] Rx#:[id number] Maxipime Inj 2,000 MG In NS Inj 100 / 100 200 / 200 100 ML @ 200 mls/hr IV.SIG Q8HR [facility] Rx#:[id number] Vancomycin Inj 1,500 MG In NS 1030 / 1030 515 / 515 Inj 500 ML @ 250 mls/hr IV.SIG Q12H [facility] Rx#:[id number] Oral 720 / 720 480 / 480 Other: # Voids 3 2 # Bowel Movements 1 Lab - Hematology Results 03/14/18 03/14/18 03/16/18 22:52 22:52 04:15 WBC 5.9 5.2 RBC 4.10 4.06 Hgb 10.3 L 10.2 L Hct 30.7 L 31.0 L MCV 75.0 L 76.3 L MCH 25.0 L 25.0 L MCHC 33.4 32.8 RDW 15.2 15.1 Plt Count 180 181 MPV 7.3 7.1 Neut % (Auto) 65.1 57.4 Lymph % (Auto) 23.8 29.1 [place] % (Auto) 8.3 H 10.3 H Eos % (Auto) 2.1 2.5 Baso % (Auto) 0.7 0.7 Neut # (Auto) 3.8 3.0 Lymph # (Auto) 1.4 1.5 [place] # (Auto) 0.5 0.5 Eos # (Auto) 0.1 0.1 Baso # (Auto) 0.0 0.0 WBC Differential . . Differential Comment Auto diff final Auto diff final ESR 46 H Lab - Chemistry Results 03/14/18 03/14/18 03/16/18 22:52 22:52 04:15 Sodium 141 139 Potassium 3.9 3.8 Chloride 107 107 Carbon Dioxide 30.6 25.9 Anion Gap 3 L 6 BUN 10 8 Creatinine 0.61 0.48 L Estimated GFR Greater than 89 Greater than 89 Random Glucose 90 89 Lactic Acid 0.7 Calcium 8.2 L 8.0 L Total Bilirubin 0.5 AST 39 H ALT 74 H Alkaline Phosphatase 69 Total Protein 7.7 D Albumin 2.7 L Imaging: ITS Impressions Lumbar Spine MRI 03/15/18 22:42 CONCLUSION: 1. Slight progression in the ventral epidural fluid collection at L2-L3 with findings consistent with L2-L3 discitis, adjacent osteomyelitis, and epidural abscess. The epidural abscess is not percutaneously accessible for drainage given its location and size. Physical Exam: GENERAL: This is a well-developed female who is in no acute distress. HEENT: Head is atraumatic. Extraocular movements grossly intact. Pupils reactive to light. No icterus. Oropharynx moist mucosa without lesions. NECK: Supple without adenopathy. LUNGS: Clear to auscultation. HEART: Regular S1 and S2. No audible murmurs. ABDOMEN: Bowel sounds present. Soft, no tenderness appreciated. BACK: Tenderness to palpation of the lower back on the right side of the vertebral column. EXTREMITIES: No clubbing, cyanosis or edema. SKIN: No rash. NEUROLOGIC: No gross focal finding. PSYCHIATRIC: Calm and cooperative. Assessment and Plan - Plan IMPRESSION: Lumbar vertebral abscess/diskitis/osteomyelitis. Recent bacteremia due to Serratia. It appears that the patient had begun to improve while she was on intravenous antibiotics in the hospital, but after discharge, she did not fill that antibiotic prescription and was without antibiotics, which may explain why she has deteriorated. RECOMMENDATIONS: 1. Continue cefepime IV. 2. Stop vancomycin. 3. Use heating pad to the lower back. Because of the patient's inability to comply with medication and treatment, continue IV antibiotics in the hospital and follow the sedimentation rate and C-reactive protein to assess response to treatment and at some point, repeat the radiographic studies as well. Plan on 6 weeks - 8 weeks treatment.
[2018-03-16] MEDS ORDERED: Pharmacy Ordered Lab Info OTHER ONE (14:45)
--- NOTE | 2018-03-16 17:29 | P.PNIM ---
Subjective Interval history: reports back pain. also concerned that she is off methadone which was recently started. Physical Exam Vital signs: Last Vital Signs Temp 98.2 F 03/16/18 16:00 Pulse 69 03/16/18 16:00 Resp 18 03/16/18 16:00 BP 144/77 H 03/16/18 16:00 Pulse Ox 99 03/16/18 16:00 Intake & Output 03/14/18 03/15/18 03/16/18 03/17/18 06:59 06:59 06:59 06:59 Intake Total 780 / 780 4745 / 4745 1300 / 1300 Balance 780 / 780 4745 / 4745 1300 / 1300 Weight 89 kg 87.3 kg Narrative: GENERAL: young lady, not in distress. HEENT: not pale,anicteric CARDIOVASCULAR: Regular rate and rhythm without murmurs, gallops, or rubs. RESPIRATORY: Clear to auscultation. Breath sounds equal bilaterally. No wheezes , rales, or rhonchi. GASTROINTESTINAL: Abdomen soft, non-tender, nondistended. Normal active bowel sounds MUSCULOSKELETAL: Extremities without clubbing, cyanosis, or edema. NEURO: Alert & Oriented x4 to person, place, time, situation. Moves all ext x4 , muscle strength 5/5. Results Labs CBC & Chem 7: 03/16/18 04:15 03/16/18 04:15 Assessment and Plan (1) Epidural abscess: Code(s): G06.2 - Extradural and subdural abscess, unspecified Status: Acute (2) IVDU (intravenous drug user): Code(s): F19.90 - Other psychoactive substance use, unspecified, uncomplicated Status: Acute (3) Hepatitis C: Code(s): B19.20 - Unspecified viral hepatitis C without hepatic coma Status: Acute Plan 28-year-old female with a PMH of Hepatitis C, IVDU and h/o Spinal Abscess who presented to the ER w/ complaints of back pain x3 days with recent admission for epidural abscess, on 02/21/18s/p eval by Dr. Walden w/ Neurosurgery, d/c'd on Levaquin PO x10wk however failed to fill the prescription. Pt returned to ER on 03/14/18 for c/o worsening back pain, LEFT AMA. Returns now w/ ongoing back pain. Finally agreed to MRI L-spine which showed progression of ventral epidural fluid collection at L2-L3 consistent w/ discitis, adjacent osteomyelitis and epidural abscess, no percutaneously accessible for drainage. Epidural Abscess--still with back pain, no neurological deficits. -Blood culture x2 on 02/21/18 Serratia marcescens, repeat blood culture on no growth to date. - continue IV antibiotics -appreciate neurosurg recs--no surgical intervention. -IR- not amenable to drainage. -ID recs appreciated--stop vanc, continue IV Cefepime. IVDU--has been off drugs for a month, was started on Methadone 10mg q6 on a week ago in the outpatient, reviewed in [facility]. -resume Methadone Hepatitis C-newly diagnosed on last admission, -follow w/ GI as outpatient, however pt unlikely to follow as non-compliant Anxiety/depression Acute on chronic-continue Zoloft -Monitor mental status DVT Prophylaxis: SCD/Teds Code Status: full _ (1) Hepatitis C Qualifiers: Viral hepatitis chronicity: Hepatic coma status:
[2018-03-16] MEDS: Methadone 10 MG Tablet PO SCH ×2 (18:24→23:54)
[2018-03-17] MEDS: Sod Chloride 0.9% Inj 1,000 ML IV.CONT SCH ×2 (02:09→13:09)
[2018-03-17] MEDS: Methadone 10 MG Tablet PO SCH ×3 (05:03→18:09)
[2018-03-17] MEDS: Sertraline 50 MG Tablet PO SCH (08:09)
[2018-03-17] MEDS: Senna/Docusate Sodium 8.6/50 MG Tablet PO SCH ×2 (08:09→21:30)
--- NOTE | 2018-03-17 10:38 | P.PNIM ---
Subjective Interval history: feels better.requesting nicotine patch. Asking if she could go home.she says she was unable to fill her antibiotic prescription on last discharge because of the cost(~$2000) Physical Exam Vital signs: Last Vital Signs Temp 97.8 F 03/17/18 08:00 Pulse 67 03/17/18 08:00 Resp 18 03/17/18 08:00 BP 112/69 03/17/18 08:00 Pulse Ox 98 03/17/18 08:00 Intake & Output 03/15/18 03/16/18 03/17/18 03/18/18 06:59 06:59 06:59 06:59 Intake Total 780 / 780 4745 / 4745 3155 / 3155 Balance 780 / 780 4745 / 4745 3155 / 3155 Weight 89 kg 87.3 kg 88.1 kg Narrative: GENERAL: young lady, not in distress. HEENT: not pale,anicteric CARDIOVASCULAR: Regular rate and rhythm without murmurs, gallops, or rubs. RESPIRATORY: Clear to auscultation. Breath sounds equal bilaterally. No wheezes , rales, or rhonchi. GASTROINTESTINAL: Abdomen soft, non-tender, nondistended. Normal active bowel sounds MUSCULOSKELETAL: Extremities without clubbing, cyanosis, or edema. NEURO: Alert & Oriented x4 to person, place, time, situation. Moves all ext x4 , muscle strength 5/5. Results Labs CBC & Chem 7: 03/16/18 04:15 03/16/18 04:15 Assessment and Plan (1) Epidural abscess: Code(s): G06.2 - Extradural and subdural abscess, unspecified Status: Acute (2) IVDU (intravenous drug user): Code(s): F19.90 - Other psychoactive substance use, unspecified, uncomplicated Status: Acute (3) Hepatitis C: Code(s): B19.20 - Unspecified viral hepatitis C without hepatic coma Status: Acute Plan 28-year-old female with a PMH of Hepatitis C, IVDU and h/o Spinal Abscess who presented to the ER w/ complaints of back pain x3 days with recent admission for epidural abscess, on 02/21/18s/p eval by Dr. Walden w/ Neurosurgery, d/c'd on Levaquin PO x10wk however failed to fill the prescription. Pt returned to ER on 03/14/18 for c/o worsening back pain, LEFT AMA. Returns now w/ ongoing back pain. Finally agreed to MRI L-spine which showed progression of ventral epidural fluid collection at L2-L3 consistent w/ discitis, adjacent osteomyelitis and epidural abscess, no percutaneously accessible for drainage. Epidural Abscess--still with back pain but with some improvement, no neurological deficits. -Blood culture x2 on 02/21/18 Serratia marcescens, repeat blood culture on no growth to date. - continue IV antibiotics -appreciate neurosurg recs--no surgical intervention. -IR- not amenable to drainage. -ID recs appreciated--stop vanc, continue IV Cefepime. Will d/w ID re:PO and case mx about abx coverage IVDU--has been off drugs for a month, was started on Methadone 10mg q6 on a week ago , reviewed in [facility]. -resume Methadone Hepatitis C-newly diagnosed on last admission, -follow w/ GI as outpatient, however pt unlikely to follow as non-compliant Anxiety/depression Acute on chronic-continue Zoloft -Monitor mental status DVT Prophylaxis: SCD/Teds Code Status: full Progress Note: Quality VTE Deep Vein Thrombosis/Pulmonary Embolism Present on Admission: No _ (1) Hepatitis C Qualifiers: Hepatic coma status: Viral hepatitis chronicity:
--- NOTE | 2018-03-17 13:03 | P.PNID ---
Subjective Remarks: She notes that she continues to have pain in her back. No other complaints. Afebrile. Develops pain in the lower back upon raising the right leg. 28-year-old white female who presented to the emergency department with back pain. The patient was recently admitted to the hospital and diagnosed with abscess and diskitis of the lumbar spine and also was noted to have osteomyelitis as well. The patient was in the hospital and was treated with IV antibiotics. An aspiration procedure was performed on the spine and the culture was negative. Blood cultures were positive with Serratia in 4 of 4 bottles. The patient was treated with IV antibiotics and she improved. Her back pain had gotten a lot better and she was transitioned to oral antibiotic in the form of Levaquin and was discharged to continue antibiotics with Levaquin for 10 weeks. She was discharged on 03/06/2018. She presented to the emergency department again because her pain worsened and she got to the point where she was ambulating with a cane that belongs to her father. She was evaluated in the emergency department and repeat MRI of the spine showed slight progression in the vertebral epidural fluid collection at L2-L3 with findings consistent with L2-L3 diskitis, adjacent osteomyelitis and epidural abscess. The epidural abscess is noted to not be percutaneously accessible for drainage because of its location and size. Neurosurgery was consulted. I Past Medical History: PAST MEDICAL HISTORY: Hepatitis C, history of IV drug abuse. The patient denies recent IV drug use. History of hand surgery, history of right foot surgery. Allergies/Adverse Reactions: Allergies Sulfa (Sulfonamide Antibiotics) Allergy (Severe, Verified 03/14/18 21:53) Anaphylaxis Objective Vital Signs 03/16/18 16:00 03/16/18 20:00 03/17/18 00:00 Temperature 98.2 F 97.9 F 97.5 F L Pulse Rate 69 82 63 Respiratory Rate 18 17 14 Blood Pressure 144/77 H 134/66 132/66 Pulse Oximetry 99 99 98 03/17/18 04:00 03/17/18 08:00 Temperature 97.9 F 97.8 F Pulse Rate 72 67 Respiratory Rate 15 18 Blood Pressure 128/70 112/69 Pulse Oximetry 99 98 Intake & Output 03/16/18 03/17/18 03/17/18 18:59 06:59 18:59 Intake Total 1400 / 1400 1755 / 1755 Balance 1400 / 1400 1755 / 1755 Weight 88.1 kg Intake: IV 1300 / 1300 1515 / 1515 NS Inj 1,000 ML @ 100 mls/hr IV 1200 / 1200 800 / 800 .CONT .Q10H BRITTANI Rx#:[id number] Maxipime Inj 2,000 MG In NS Inj 100 / 100 200 / 200 100 ML @ 200 mls/hr IV.SIG Q8HR BRITTANI Rx#:[id number] Vancomycin Inj 1,500 MG In NS 515 / 515 Inj 500 ML @ 250 mls/hr IV.SIG Q12H BRITTANI Rx#:[id number] Oral 100 / 100 240 / 240 Other: # Voids 3 2 Date of Last Bowel Movement 03/15/18 Lab - Hematology Results 03/16/18 03/17/18 04:15 10:10 WBC 5.2 RBC 4.06 Hgb 10.2 L Hct 31.0 L MCV 76.3 L MCH 25.0 L MCHC 32.8 RDW 15.1 Plt Count 181 MPV 7.1 Neut % (Auto) 57.4 Lymph % (Auto) 29.1 [place] % (Auto) 10.3 H Eos % (Auto) 2.5 Baso % (Auto) 0.7 Neut # (Auto) 3.0 Lymph # (Auto) 1.5 [place] # (Auto) 0.5 Eos # (Auto) 0.1 Baso # (Auto) 0.0 WBC Differential . Differential Comment Auto diff final ESR 58 H Lab - Chemistry Results 03/16/18 03/17/18 04:15 10:10 Sodium 139 Potassium 3.8 Chloride 107 Carbon Dioxide 25.9 Anion Gap 6 BUN 8 Creatinine 0.48 L Estimated GFR Greater than 89 Random Glucose 89 Calcium 8.0 L Total Bilirubin 0.5 AST 39 H ALT 74 H Alkaline Phosphatase 69 C-Reactive Protein 1.54 H Total Protein 7.7 D Albumin 2.7 L Imaging: ITS Impressions Lumbar Spine MRI 03/15/18 22:42 CONCLUSION: 1. Slight progression in the ventral epidural fluid collection at L2-L3 with findings consistent with L2-L3 discitis, adjacent osteomyelitis, and epidural abscess. The epidural abscess is not percutaneously accessible for drainage given its location and size. Physical Exam: GENERAL: This is a well-developed female who is in no acute distress. HEENT: Head is atraumatic. Extraocular movements grossly intact. Pupils reactive to light. No icterus. Oropharynx moist mucosa without lesions. NECK: Supple without adenopathy. LUNGS: Clear to auscultation. HEART: Regular S1 and S2. No audible murmurs. ABDOMEN: Bowel sounds present. Soft, no tenderness appreciated. BACK: Tenderness to palpation of the lower back on the right side of the vertebral column. EXTREMITIES: No clubbing, cyanosis or edema. SKIN: No rash. NEUROLOGIC: No gross focal finding. PSYCHIATRIC: Calm and cooperative. Assessment and Plan - Plan IMPRESSION: Lumbar vertebral abscess/diskitis/osteomyelitis. Recent bacteremia due to Serratia. Worsened since prior hospitalization. It appears that the patient had begun to improve while she was on intravenous antibiotics in the hospital, but after discharge, she did not fill that antibiotic prescription and was without antibiotics, which may explain why she has deteriorated. RECOMMENDATIONS: Continue cefepime IV. Because of the patient's inability to comply with medication and treatment, continue IV antibiotics in the hospital and follow the sedimentation rate and C-reactive protein to assess response to treatment and at some point, repeat the radiographic studies as well. Plan on 6 weeks - 8 weeks treatment. I do not recommend treating outpatient at this time. I think she should remain on IV antibiotics And repeat the MRI in 2 weeks to assess her response. If she is responding adequately By that time can be determined whether she should receive continued IV antibiotics versus oral antibiotics. I have explained to her the necessity to continue with IV antibiotics and advised her against signing out AGAINST MEDICAL ADVICE. She notifies me that she will remain in the hospital for the treatment. She risk very severe complications from lack of adequate treatment for this infection.
[2018-03-18] MEDS: Sod Chloride 0.9% Inj 1,000 ML IV.CONT SCH ×2 (00:07→10:59)
[2018-03-18] MEDS: Methadone 10 MG Tablet PO SCH ×4 (00:07→18:07)
[2018-03-18] MEDS: Ibuprofen 600 MG Tablet PO PRN ×3 (02:30→21:06)
[2018-03-18] MEDS: Sertraline 50 MG Tablet PO SCH (08:16)
[2018-03-18] MEDS: Senna/Docusate Sodium 8.6/50 MG Tablet PO SCH ×2 (08:17→21:06)
--- NOTE | 2018-03-18 11:40 | P.PNIM ---
Subjective Interval history: no new complaints. still has back pain. addition of ibuprofen is helping some. no urinary or fecal incontinence Physical Exam Vital signs: Last Vital Signs Temp 97.8 F 03/18/18 08:00 Pulse 64 03/18/18 08:00 Resp 18 03/18/18 08:00 BP 110/69 03/18/18 08:00 Pulse Ox 99 03/18/18 08:00 Intake & Output 03/16/18 03/17/18 03/18/18 03/19/18 06:59 06:59 06:59 06:59 Intake Total 4745 / 4745 3155 / 3155 3970 / 3970 1100 / 1100 Balance 4745 / 4745 3155 / 3155 3970 / 3970 1100 / 1100 Weight 87.3 kg 88.1 kg 87.3 kg Narrative: GENERAL: young lady, not in distress. HEENT: not pale,anicteric CARDIOVASCULAR: Regular rate and rhythm without murmurs, gallops, or rubs. RESPIRATORY: Clear to auscultation. Breath sounds equal bilaterally. No wheezes , rales, or rhonchi. GASTROINTESTINAL: Abdomen soft, non-tender, nondistended. Normal active bowel sounds MUSCULOSKELETAL: Extremities without clubbing, cyanosis, or edema. NEURO: Alert & Oriented x4 to person, place, time, situation. Moves all ext x4 , muscle strength 5/5. Results Labs CBC & Chem 7: 03/16/18 04:15 03/16/18 04:15 Assessment and Plan (1) Epidural abscess: Code(s): G06.2 - Extradural and subdural abscess, unspecified Status: Acute (2) IVDU (intravenous drug user): Code(s): F19.90 - Other psychoactive substance use, unspecified, uncomplicated Status: Acute (3) Hepatitis C: Code(s): B19.20 - Unspecified viral hepatitis C without hepatic coma Status: Acute Plan 28-year-old female with a PMH of Hepatitis C, IVDU and h/o Spinal Abscess who presented to the ER w/ complaints of back pain x3 days with recent admission for epidural abscess, on 02/21/18s/p eval by Dr. Walden w/ Neurosurgery, d/c'd on Levaquin PO x10wk however failed to fill the prescription. Pt returned to ER on 03/14/18 for c/o worsening back pain, LEFT AMA. Returns now w/ ongoing back pain. Finally agreed to MRI L-spine which showed progression of ventral epidural fluid collection at L2-L3 consistent w/ discitis, adjacent osteomyelitis and epidural abscess, no percutaneously accessible for drainage. Epidural Abscess--still with back pain but with some improvement, no neurological deficits. -Blood culture x2 on 02/21/18 Serratia marcescens, repeat blood culture on no growth to date. -appreciate neurosurg recs--no surgical intervention. -IR- not amenable to drainage. -ID recs continue IV Cefepime. -pain control as needed. IVDU--has been off drugs for a month, was started on Methadone 10mg q6 , reviewed in [facility]. -keep on Methadone while here, patient plans to follow up at a Methadone clinic on discharge Hepatitis C-newly diagnosed on last admission, -follow w/ GI as outpatient, however pt unlikely to follow as non-compliant Anxiety/depression Acute on chronic-continue Zoloft -Monitor mental status DVT Prophylaxis: SCD/Teds Code Status: full Progress Note: Quality VTE Deep Vein Thrombosis/Pulmonary Embolism Present on Admission: No _ (1) Hepatitis C Qualifiers: Viral hepatitis chronicity: Hepatic coma status:
[2018-03-19] MEDS: Methadone 10 MG Tablet PO SCH ×4 (01:09→17:36)
[2018-03-19] MEDS: Sertraline 50 MG Tablet PO SCH (08:53)
[2018-03-19] MEDS: Senna/Docusate Sodium 8.6/50 MG Tablet PO SCH ×2 (08:53→20:13)
[2018-03-19] MEDS: Ibuprofen 600 MG Tablet PO PRN (11:47)
--- NOTE | 2018-03-19 17:21 | P.PNIM ---
Subjective Interval history: no new complaints. Physical Exam Vital signs: Last Vital Signs Temp 97.9 F 03/19/18 12:00 Pulse 84 03/19/18 12:00 Resp 18 03/19/18 12:00 BP 98/63 L 03/19/18 12:00 Pulse Ox 99 03/19/18 12:00 Intake & Output 03/17/18 03/18/18 03/19/18 03/20/18 06:59 06:59 06:59 06:59 Intake Total 3155 / 3155 3970 / 3970 1640 / 1640 200 / 200 Balance 3155 / 3155 3970 / 3970 1640 / 1640 200 / 200 Weight 88.1 kg 87.3 kg 85.9 kg Narrative: GENERAL: young lady, not in distress. HEENT: not pale,anicteric CARDIOVASCULAR: Regular rate and rhythm without murmurs, gallops, or rubs. RESPIRATORY: Clear to auscultation. Breath sounds equal bilaterally. No wheezes , rales, or rhonchi. GASTROINTESTINAL: Abdomen soft, non-tender, nondistended. Normal active bowel sounds MUSCULOSKELETAL: Extremities without clubbing, cyanosis, or edema. NEURO: Alert & Oriented x4 to person, place, time, situation. Moves all ext x4 , muscle strength 5/5. Results Labs CBC & Chem 7: 03/16/18 04:15 03/16/18 04:15 Assessment and Plan (1) Epidural abscess: Code(s): G06.2 - Extradural and subdural abscess, unspecified Status: Acute (2) IVDU (intravenous drug user): Code(s): F19.90 - Other psychoactive substance use, unspecified, uncomplicated Status: Acute (3) Hepatitis C: Code(s): B19.20 - Unspecified viral hepatitis C without hepatic coma Status: Acute Plan 28-year-old female with a PMH of Hepatitis C, IVDU and h/o Spinal Abscess who presented to the ER w/ complaints of back pain x3 days with recent admission for epidural abscess, on 18s/p eval by Dr. Walden w/ Neurosurgery, d/c'd on Levaquin PO x10wk however failed to fill the prescription. Pt returned to ER on 03/14/18 for c/o worsening back pain, LEFT AMA. Returns now w/ ongoing back pain. Finally agreed to MRI L-spine which showed progression of ventral epidural fluid collection at L2-L3 consistent w/ discitis, adjacent osteomyelitis and epidural abscess, no percutaneously accessible for drainage. Epidural Abscess--still with back pain but with some improvement, no neurological deficits. -Blood culture x2 on 02/21/18 Serratia marcescens, repeat blood culture on no growth to date. -appreciate neurosurg recs--no surgical intervention. -IR- not amenable to drainage. -ID recs continue IV Cefepime. -pain control as needed. IVDU--has been off drugs for a month, was started on Methadone 10mg q6 , reviewed in [facility]. -keep on Methadone while here, patient plans to follow up at a Methadone clinic on discharge Hepatitis C-newly diagnosed on last admission, -follow w/ GI as outpatient, however pt unlikely to follow as non-compliant Anxiety/depression Acute on chronic-continue Zoloft -Monitor mental status DVT Prophylaxis: SCD/Teds Code Status: full Progress Note: Quality VTE Deep Vein Thrombosis/Pulmonary Embolism Present on Admission: No _ (1) Hepatitis C Qualifiers: Hepatic coma status: Viral hepatitis chronicity:
[2018-03-20] MEDS: Methadone 10 MG Tablet PO SCH ×5 (00:03→23:52)
[2018-03-20] MEDS: Senna/Docusate Sodium 8.6/50 MG Tablet PO SCH ×2 (09:17→21:39)
[2018-03-20] MEDS: Sertraline 50 MG Tablet PO SCH (09:17)
[2018-03-20] MEDS: Ibuprofen 600 MG Tablet PO PRN ×2 (09:19→21:37)
--- NOTE | 2018-03-20 14:18 | P.PNIM ---
Subjective Interval history: no complaints. says her pain is bearable. she would like to take a shower. Physical Exam Vital signs: Last Vital Signs Temp 98.2 F 03/20/18 12:00 Pulse 74 03/20/18 12:00 Resp 18 03/20/18 12:00 BP 109/56 L 03/20/18 12:00 Pulse Ox 98 03/20/18 12:00 Intake & Output 03/18/18 03/19/18 03/20/18 03/21/18 06:59 06:59 06:59 06:59 Intake Total 3970 / 3970 1640 / 1640 1020 / 1020 100 / 100 Balance 3970 / 3970 1640 / 1640 1020 / 1020 100 / 100 Weight 87.3 kg 85.9 kg 87.6 kg Narrative: GENERAL: young lady, not in distress. HEENT: not pale,anicteric CARDIOVASCULAR: Regular rate and rhythm without murmurs, gallops, or rubs. RESPIRATORY: Clear to auscultation. Breath sounds equal bilaterally. No wheezes , rales, or rhonchi. GASTROINTESTINAL: Abdomen soft, non-tender, nondistended. Normal active bowel sounds MUSCULOSKELETAL: Extremities without clubbing, cyanosis, or edema. NEURO: Alert & Oriented x4 to person, place, time, situation. Moves all ext x4 , muscle strength 5/5. Results Labs CBC & Chem 7: 03/16/18 04:15 03/16/18 04:15 Assessment and Plan (1) Epidural abscess: Code(s): G06.2 - Extradural and subdural abscess, unspecified Status: Acute (2) IVDU (intravenous drug user): Code(s): F19.90 - Other psychoactive substance use, unspecified, uncomplicated Status: Acute (3) Hepatitis C: Code(s): B19.20 - Unspecified viral hepatitis C without hepatic coma Status: Acute Plan 28-year-old female with a PMH of Hepatitis C, IVDU and h/o Spinal Abscess who presented to the ER w/ complaints of back pain x3 days with recent admission for epidural abscess, on 18s/p eval by Dr. Walden w/ Neurosurgery, d/c'd on Levaquin PO x10wk however failed to fill the prescription. Pt returned to ER on 03/14/18 for c/o worsening back pain, LEFT AMA. Returns now w/ ongoing back pain. Finally agreed to MRI L-spine which showed progression of ventral epidural fluid collection at L2-L3 consistent w/ discitis, adjacent osteomyelitis and epidural abscess, no percutaneously accessible for drainage. Epidural Abscess-- pain has improved, no neurological deficits. -Blood culture x2 on 02/21/18 Serratia marcescens, repeat blood culture on no growth to date. -appreciate neurosurg recs--no surgical intervention. -IR- not amenable to drainage. -ID recs continue IV Cefepime. -pain control as needed. IVDU--has been off drugs for a month, was started on Methadone 10mg q6 , reviewed in [facility]. -keep on Methadone while here, patient plans to follow up at a Methadone clinic on discharge Hepatitis C-newly diagnosed on last admission, -follow w/ GI as outpatient, however pt unlikely to follow as non-compliant Anxiety/depression Acute on chronic-continue Zoloft -Monitor mental status DVT Prophylaxis: SCD/Teds Code Status: full Progress Note: Quality VTE Deep Vein Thrombosis/Pulmonary Embolism Present on Admission: No _ (1) Hepatitis C Qualifiers: Viral hepatitis chronicity: Hepatic coma status:
[2018-03-21] MEDS: Ibuprofen 600 MG Tablet PO PRN ×2 (06:02→17:29)
[2018-03-21] MEDS: Methadone 10 MG Tablet PO SCH ×4 (06:02→23:48)
[2018-03-21] MEDS: Sertraline 50 MG Tablet PO SCH (09:59)
[2018-03-21] MEDS: Senna/Docusate Sodium 8.6/50 MG Tablet PO SCH ×2 (10:01→21:56)
--- NOTE | 2018-03-21 12:01 | P.PNIM ---
Subjective Interval history: c/o pain in the gluteal area when walking and sitting. Physical Exam Vital signs: Last Vital Signs Temp 97.6 F 03/21/18 08:00 Pulse 64 03/21/18 08:00 Resp 18 03/21/18 08:00 BP 101/63 03/21/18 08:00 Pulse Ox 97 03/21/18 08:00 Intake & Output 03/19/18 03/20/18 03/21/18 03/22/18 06:59 06:59 06:59 06:59 Intake Total 1640 / 1640 1020 / 1020 640 / 640 Balance 1640 / 1640 1020 / 1020 640 / 640 Weight 85.9 kg 87.6 kg Narrative: GENERAL: young lady, not in distress. HEENT: not pale,anicteric CARDIOVASCULAR: Regular rate and rhythm without murmurs, gallops, or rubs. RESPIRATORY: Clear to auscultation. Breath sounds equal bilaterally. No wheezes , rales, or rhonchi. GASTROINTESTINAL: Abdomen soft, non-tender, nondistended. Normal active bowel sounds MUSCULOSKELETAL: Extremities without clubbing, cyanosis, or edema. gluteal area examined,chaperoned by nurse Briana-no erythema, no swelling, palpation of lumbar spine to coccyx-minimal tenderness, mild tenderness. NEURO: Alert & Oriented x4 to person, place, time, situation. Moves all ext x4 , muscle strength 5/5. Results Labs CBC & Chem 7: 03/16/18 04:15 03/16/18 04:15 Assessment and Plan (1) Epidural abscess: Code(s): G06.2 - Extradural and subdural abscess, unspecified Status: Acute (2) IVDU (intravenous drug user): Code(s): F19.90 - Other psychoactive substance use, unspecified, uncomplicated Status: Acute (3) Hepatitis C: Code(s): B19.20 - Unspecified viral hepatitis C without hepatic coma Status: Acute Plan 28-year-old female with a PMH of Hepatitis C, IVDU and h/o Spinal Abscess who presented to the ER w/ complaints of back pain x3 days with recent admission for epidural abscess, on 02/21/18s/p eval by Dr. Walden w/ Neurosurgery, d/c'd on Levaquin PO x10wk however failed to fill the prescription. Pt returned to ER on 03/14/18 for c/o worsening back pain, LEFT AMA. Returns now w/ ongoing back pain. Finally agreed to MRI L-spine which showed progression of ventral epidural fluid collection at L2-L3 consistent w/ discitis, adjacent osteomyelitis and epidural abscess, no percutaneously accessible for drainage. Epidural Abscess-- pain has improved, no neurological deficits. -Blood culture x2 on 02/21/18 Serratia marcescens, repeat blood culture on no growth to date. -appreciate neurosurg recs--no surgical intervention. -IR- not amenable to drainage. -ID recs continue IV Cefepime. Plan to repeat MRI at 2 weeks after initiation of IV abx to determine further abx regimen. -pain control as needed. -CRP 1.54, ESR 58 on 03/17,can follow weekly, repeat again on 03/24. IVDU--has been off drugs for a month, was started on Methadone 10mg q6 , reviewed in [facility]. -keep on Methadone while here, patient plans to follow up at a Methadone clinic on discharge Hepatitis C-newly diagnosed on last admission, -follow w/ GI as outpatient, however pt unlikely to follow as non-compliant Anxiety/depression Acute on chronic-continue Zoloft -Monitor mental status DVT Prophylaxis: SCD/Teds Code Status: full Progress Note: Quality VTE Deep Vein Thrombosis/Pulmonary Embolism Present on Admission: No _ (1) Hepatitis C Qualifiers: Hepatic coma status: Viral hepatitis chronicity:
[2018-03-22] MEDS: Ibuprofen 600 MG Tablet PO PRN ×2 (02:43→13:54)
[2018-03-22] MEDS: Methadone 10 MG Tablet PO SCH ×3 (06:38→18:24)
[2018-03-22] MEDS: Sertraline 50 MG Tablet PO SCH (08:44)
[2018-03-22] MEDS: Senna/Docusate Sodium 8.6/50 MG Tablet PO SCH ×2 (08:44→21:33)
--- NOTE | 2018-03-22 12:53 | P.PNIM ---
Subjective Interval history: no new complaints Physical Exam Vital signs: Last Vital Signs Temp 97.9 F 03/22/18 12:00 Pulse 72 03/22/18 12:00 Resp 18 03/22/18 12:00 BP 114/69 03/22/18 12:00 Pulse Ox 98 03/22/18 12:00 Intake & Output 03/20/18 03/21/18 03/22/18 03/23/18 06:59 06:59 06:59 06:59 Intake Total 1020 / 1020 640 / 640 1520 / 1520 100 / 100 Balance 1020 / 1020 640 / 640 1520 / 1520 100 / 100 Weight 87.6 kg 87 kg Narrative: GENERAL: young lady, not in distress. HEENT: not pale,anicteric CARDIOVASCULAR: Regular rate and rhythm without murmurs, gallops, or rubs. RESPIRATORY: Clear to auscultation. Breath sounds equal bilaterally. No wheezes , rales, or rhonchi. GASTROINTESTINAL: Abdomen soft, non-tender, nondistended. Normal active bowel sounds MUSCULOSKELETAL: Extremities without clubbing, cyanosis, or edema. NEURO: Alert & Oriented x4 to person, place, time, situation. Moves all ext x4 , muscle strength 5/5. Results Labs CBC & Chem 7: 03/16/18 04:15 03/16/18 04:15 Assessment and Plan (1) Epidural abscess: Code(s): G06.2 - Extradural and subdural abscess, unspecified Status: Acute (2) IVDU (intravenous drug user): Code(s): F19.90 - Other psychoactive substance use, unspecified, uncomplicated Status: Acute (3) Hepatitis C: Code(s): B19.20 - Unspecified viral hepatitis C without hepatic coma Status: Acute Plan 28-year-old female with a PMH of Hepatitis C, IVDU and h/o Spinal Abscess who presented to the ER w/ complaints of back pain x3 days with recent admission for epidural abscess, on 18s/p eval by Dr. Walden w/ Neurosurgery, d/c'd on Levaquin PO x10wk however failed to fill the prescription. Pt returned to ER on 03/14/18 for c/o worsening back pain, LEFT AMA. Returns now w/ ongoing back pain. Finally agreed to MRI L-spine which showed progression of ventral epidural fluid collection at L2-L3 consistent w/ discitis, adjacent osteomyelitis and epidural abscess, no percutaneously accessible for drainage. 03/22. no change in plan below. patient stable on antibiotics Epidural Abscess-- pain has improved, no neurological deficits. -Blood culture x2 on 02/21/18 Serratia marcescens, repeat blood culture on no growth to date. -appreciate neurosurg recs--no surgical intervention. -IR- not amenable to drainage. -ID recs continue IV Cefepime. Plan to repeat MRI at 2 weeks after initiation of IV abx to determine further abx regimen. -pain control as needed. -CRP 1.54, ESR 58 on 03/17,can follow weekly, repeat again on 03/24. IVDU--has been off drugs for a month, was started on Methadone 10mg q6 , reviewed in [facility]. -keep on Methadone while here, patient plans to follow up at a Methadone clinic on discharge Hepatitis C-newly diagnosed on last admission, -follow w/ GI as outpatient, however pt unlikely to follow as non-compliant Anxiety/depression Acute on chronic-continue Zoloft -Monitor mental status DVT Prophylaxis: SCD/Teds Code Status: full Progress Note: Quality VTE Deep Vein Thrombosis/Pulmonary Embolism Present on Admission: No _ (1) Hepatitis C Qualifiers: Viral hepatitis chronicity: Hepatic coma status:
[2018-03-23] MEDS: Methadone 10 MG Tablet PO SCH ×5 (00:25→23:50)
[2018-03-23 07:11] LABS: Baso % (Auto) 1.3 % (0.0-2.0); Eos # (Auto) 0.2 th/mm3 (0.0-0.4); Eos % (Auto) 6.3 % (0.0-4.0); Hematocrit 35.6 % (35.0-46.0); Hemoglobin 12.2 gm/dL (11.6-15.3); Lymph # (Auto) 1.5 th/mm3 (1.0-4.8); Lymph % (Auto) 41.5 % (9.0-44.0); Mean Corpuscular HGB Conc 34.3 % (32.0-36.0); Mean Corpuscular Hemoglobin 25.6 pg (27.0-34.0); Mean Corpuscular Volume 74.5 fL (80.0-100.0); Mono # (Auto) 0.4 th/mm3 (0.0-0.9); Mono % (Auto) 9.9 % (0.0-8.0); Neut # (Auto) 1.5 th/mm3 (1.8-7.7); Platelet Count 230 th/mm3 (150-450); Red Blood Count 4.77 mil/mm3 (4.00-5.30); Red Cell Distribution Width 14.8 % (11.6-17.2); White Blood Count 3.6 th/mm3 (4.0-11.0)
[2018-03-23] MEDS: Ibuprofen 600 MG Tablet PO PRN ×2 (08:06→19:17)
[2018-03-23] MEDS: Sertraline 50 MG Tablet PO SCH (08:06)
[2018-03-23] MEDS: Senna/Docusate Sodium 8.6/50 MG Tablet PO SCH ×2 (08:07→20:30)
[2018-03-23 08:11] LABS: Erythrocyte Sedimentation Rate 37 mm/hr (0-20)
--- NOTE | 2018-03-23 12:00 | P.PNIM ---
Subjective Interval history: General patient complains of some lower back pain. Otherwise no complaints. Physical Exam Vital signs: Vital Signs 03/22/18 12:00 03/22/18 16:00 03/22/18 20:00 Temperature 97.9 F 98.3 F 98.7 F Pulse Rate 72 62 97 H Respiratory Rate 18 18 20 Blood Pressure 114/69 124/75 122/71 Pulse Oximetry 98 96 98 03/23/18 00:00 03/23/18 04:00 03/23/18 08:00 Temperature 98.0 F 98.0 F 97.8 F Pulse Rate 60 58 L 63 Respiratory Rate 20 20 18 Blood Pressure 112/68 102/63 102/67 Pulse Oximetry 98 96 98 Intake & Output 03/22/18 03/23/18 03/23/18 18:59 06:59 18:59 Intake Total 1280 / 1280 200 / 200 Balance 1280 / 1280 200 / 200 Weight 88.3 kg Intake: IV 200 / 200 200 / 200 Maxipime Inj 2,000 MG In NS Inj 200 / 200 200 / 200 100 ML @ 200 mls/hr IV.SIG Q8HR [facility] Rx#:[id number] Oral 1080 / 1080 Other: # Voids 4 3 Date of Last Bowel Movement 03/19/18 03/21/18 Narrative: HEENT extraocular movements are intact, clear oropharyngeal mucosa, no JVD Cardiovascular S1-S2 audible, RRR, no murmurs rubs or gallops Respiratory clear to auscultation bilaterally Abdomen soft, nontender, nondistended, normal bowel sounds Extremities no edema 2+ distal pulses in bilateral upper and lower extremities Neuro no focal neurological deficits. Results - Labs CBC & Chem 7: 03/23/18 06:54 03/16/18 04:15 Laboratory Results - last 24 hr 03/23/18 03/23/18 06:54 06:54 WBC 3.6 L RBC 4.77 Hgb 12.2 Hct 35.6 MCV 74.5 L MCH 25.6 L MCHC 34.3 RDW 14.8 Plt Count 230 MPV 7.0 Neut % (Auto) 41.0 Lymph % (Auto) 41.5 [place] % (Auto) 9.9 H Eos % (Auto) 6.3 H Baso % (Auto) 1.3 Neut # (Auto) 1.5 L Lymph # (Auto) 1.5 [place] # (Auto) 0.4 Eos # (Auto) 0.2 Baso # (Auto) 0.0 WBC Differential . Differential Comment Auto diff final ESR 37 H C-Reactive Protein 1.10 H Assessment and Plan - Assessment (1) Epidural abscess Code(s): G06.2 - Extradural and subdural abscess, unspecified Status: Acute (2) IVDU (intravenous drug user) Code(s): F19.90 - Other psychoactive substance use, unspecified, uncomplicated Status: Acute (3) Hepatitis C Code(s): B19.20 - Unspecified viral hepatitis C without hepatic coma Status: Acute - Plan This patient is a 28-year-old female with a diagnosis of hepatitis C, IV drug use, history of spinal abscess who presented to the emergency room with complaints of lower back pain for 3 days. Patient was recently admitted in mid February of this year and was treated for Serratia bacteremia. At that time there is also concern for epidural abscess and aspiration procedure was performed on the spine however cultures were negative. Her symptoms improved after discharge with Levaquin which she was scheduled to take for 10 weeks. She now returned to the emergency department with complaints of worsening lower back pain, MRI shows epidural fluid collection at L2-L3, discitis. 1. Epidural abscess No focal neurological deficits. Patient has remained afebrile, WBC count is normal, CRP elevated at 1.5, down trended to 1.1. Infectious disease following the patient. Blood cultures from 02/21/18 grew Serratia, repeat blood cultures on 03/14/2018 no growth to date. Infectious disease following the patient and recommends IV cefepime for 6-8 weeks. Repeat MRI will be done 2 weeks after the initiation of IV antibiotics. Continue current pain medication regimen. Neurosurgery does not recommend any surgical intervention at this point. 2. IV drug use Patient states she has been off of drugs for approximately 1 month. Continue methadone 10 mg every 6 hours which is what the patient was taking prior to arrival at our hospital. Patient advised to avoid IV drug use. 3. Hepatitis C Recently diagnosed on her last admission. Patient can continue to follow-up outpatient with GI after she is ready for discharge. 4. Anxiety/depression Continue Zoloft. Currently the patient is stable. DVT prophylaxis, continue SCDs. Patient is ambulatory.
[2018-03-24] MEDS: Methadone 10 MG Tablet PO SCH ×4 (05:28→23:56)
[2018-03-24] MEDS: Senna/Docusate Sodium 8.6/50 MG Tablet PO SCH ×2 (09:23→21:17)
[2018-03-24] MEDS: Sertraline 50 MG Tablet PO SCH (09:23)
--- NOTE | 2018-03-24 10:42 | P.PNIM ---
Subjective Interval history: Patient in no acute distress this morning. She does not have any specific complaints. Physical Exam Vital signs: Vital Signs 03/23/18 12:00 03/23/18 16:00 03/23/18 20:00 Temperature 97.9 F 98.3 F 98.5 F Pulse Rate 65 56 L 75 Respiratory Rate 18 18 20 Blood Pressure 110/65 110/62 114/70 Pulse Oximetry 98 99 99 03/24/18 00:00 03/24/18 04:00 03/24/18 07:00 Temperature 97.7 F 97.5 F L Pulse Rate 54 L 52 L Respiratory Rate 20 18 17 Blood Pressure 100/56 L 96/60 L Pulse Oximetry 97 100 03/24/18 08:00 Temperature 97.5 F L Pulse Rate 56 L Respiratory Rate 18 Blood Pressure 104/58 L Pulse Oximetry 98 Intake & Output 03/23/18 03/24/18 03/24/18 18:59 06:59 18:59 Intake Total 100 / 100 1780 / 1780 Balance 100 / 100 1780 / 1780 Weight 88.4 kg Intake: IV 100 / 100 200 / 200 Maxipime Inj 2,000 MG In NS Inj 100 / 100 200 / 200 100 ML @ 200 mls/hr IV.SIG Q8HR [facility] Rx#:[id number] Oral 1580 / 1580 Other: # Voids 5 3 Date of Last Bowel Movement 03/23/18 03/23/18 # Bowel Movements 1 1 Narrative: HEENT extraocular movements are intact, clear oropharyngeal mucosa, no JVD Cardiovascular S1-S2 audible, RRR, no murmurs rubs or gallops Respiratory clear to auscultation bilaterally Abdomen soft, nontender, nondistended, normal bowel sounds Extremities no edema 2+ distal pulses in bilateral upper and lower extremities Neuro no focal neurological deficits. Results - Labs CBC & Chem 7: 03/23/18 06:54 03/16/18 04:15 Assessment and Plan - Assessment (1) Epidural abscess Code(s): G06.2 - Extradural and subdural abscess, unspecified Status: Acute (2) IVDU (intravenous drug user) Code(s): F19.90 - Other psychoactive substance use, unspecified, uncomplicated Status: Acute (3) Hepatitis C Code(s): B19.20 - Unspecified viral hepatitis C without hepatic coma Status: Acute - Plan This patient is a 28-year-old female with a diagnosis of hepatitis C, IV drug use, history of spinal abscess who presented to the emergency room with complaints of lower back pain for 3 days. Patient was recently admitted in mid February of this year and was treated for Serratia bacteremia. At that time there is also concern for epidural abscess and aspiration procedure was performed on the spine however cultures were negative. Her symptoms improved after discharge with Levaquin which she was scheduled to take for 10 weeks. She now returned to the emergency department with complaints of worsening lower back pain, MRI shows epidural fluid collection at L2-L3, discitis. 1. Epidural abscess Patient afebrile overnight. No focal neurological deficits. Patient has remained afebrile, WBC count is normal, CRP elevated at 1.5, down trended to 1.1. Infectious disease following the patient. Blood cultures from 02/21/18 grew Serratia, repeat blood cultures on 03/14/2018 no growth to date. Infectious disease following the patient and recommends IV cefepime for 6-8 weeks. Repeat MRI will be done 2 weeks after the initiation of IV antibiotics. Continue current pain medication regimen. Neurosurgery does not recommend any surgical intervention at this point. No current change in the plan of care. Continue current management. 2. IV drug use Patient states she has been off of drugs for approximately 1 month. Continue methadone 10 mg every 6 hours which is what the patient was taking prior to arrival at our hospital. Patient advised to avoid IV drug use. 3. Hepatitis C Recently diagnosed on her last admission. Patient can continue to follow-up outpatient with GI after she is ready for discharge. 4. Anxiety/depression Continue Zoloft. Currently the patient is stable. DVT prophylaxis, continue SCDs. Patient is ambulatory.
[2018-03-24] MEDS: Ibuprofen 600 MG Tablet PO PRN (13:52)
[2018-03-25] MEDS: Methadone 10 MG Tablet PO SCH ×4 (05:53→23:44)
[2018-03-25] MEDS: Sertraline 50 MG Tablet PO SCH (10:34)
[2018-03-25] MEDS: Senna/Docusate Sodium 8.6/50 MG Tablet PO SCH ×2 (10:36→21:15)
--- NOTE | 2018-03-25 13:25 | P.PNIM ---
Subjective Interval history: Patient is lying down in bed. She does not have any specific complaints this morning. Physical Exam Vital signs: Vital Signs 03/24/18 16:00 03/24/18 20:00 03/25/18 00:00 Temperature 97.7 F 98.3 F 96.0 F L Pulse Rate 61 77 80 Respiratory Rate 18 18 18 Blood Pressure 118/71 146/81 H 109/58 L Pulse Oximetry 98 98 99 03/25/18 04:00 03/25/18 08:00 03/25/18 12:00 Temperature 97.7 F 97.6 F 97.9 F Pulse Rate 63 57 L 67 Respiratory Rate 20 14 12 Blood Pressure 120/68 114/70 112/62 Pulse Oximetry 97 99 99 Intake & Output 03/24/18 03/25/18 03/25/18 18:59 06:59 18:59 Intake Total 1060 / 1060 980 / 980 Balance 1060 / 1060 980 / 980 Weight 86.9 kg Intake: IV 100 / 100 200 / 200 Maxipime Inj 2,000 MG In NS Inj 100 / 100 200 / 200 100 ML @ 200 mls/hr IV.SIG Q8HR [facility] Rx#:[id number] Oral 960 / 960 780 / 780 Other: # Voids 6 3 Date of Last Bowel Movement 03/23/18 03/23/18 03/25/18 # Bowel Movements 0 1 Narrative: HEENT extraocular movements are intact, clear oropharyngeal mucosa, no JVD Cardiovascular S1-S2 audible, RRR, no murmurs rubs or gallops Respiratory clear to auscultation bilaterally Abdomen soft, nontender, nondistended, normal bowel sounds Extremities no edema 2+ distal pulses in bilateral upper and lower extremities Neuro no focal neurological deficits. Results - Labs CBC & Chem 7: 03/23/18 06:54 03/16/18 04:15 Assessment and Plan - Assessment (1) Epidural abscess Code(s): G06.2 - Extradural and subdural abscess, unspecified Status: Acute (2) IVDU (intravenous drug user) Code(s): F19.90 - Other psychoactive substance use, unspecified, uncomplicated Status: Acute (3) Hepatitis C Code(s): B19.20 - Unspecified viral hepatitis C without hepatic coma Status: Acute - Plan This patient is a 28-year-old female with a diagnosis of hepatitis C, IV drug use, history of spinal abscess who presented to the emergency room with complaints of lower back pain for 3 days. Patient was recently admitted in mid February of this year and was treated for Serratia bacteremia. At that time there is also concern for epidural abscess and aspiration procedure was performed on the spine however cultures were negative. Her symptoms improved after discharge with Levaquin which she was scheduled to take for 10 weeks. She now returned to the emergency department with complaints of worsening lower back pain, MRI shows epidural fluid collection at L2-L3, discitis. No change in the patient's current plan of care. CRP as well as repeat MRI will be done in the next few days as per infectious disease recommendations. Continue IV antibiotics. 1. Epidural abscess, Blood cxs positive for Serratia. Patient afebrile overnight. No focal neurological deficits. Patient has remained afebrile, WBC count is normal, CRP elevated at 1.5, down trended to 1.1. Infectious disease following the patient. Blood cultures from 02/21/18 grew Serratia, repeat blood cultures on 03/14/2018 no growth to date. Infectious disease following the patient and recommends IV cefepime for 6-8 weeks. Repeat MRI will be done 2 weeks after the initiation of IV antibiotics, which will be in the next few days. Continue current pain medication regimen. Neurosurgery does not recommend any surgical intervention at this point. No current change in the plan of care. Continue current management. 2. IV drug use Patient states she has been off of drugs for approximately 1 month. Continue methadone 10 mg every 6 hours which is what the patient was taking prior to arrival at our hospital. Patient advised to avoid IV drug use. 3. Hepatitis C Recently diagnosed on her last admission. Patient can continue to follow-up outpatient with GI after she is ready for discharge. 4. Anxiety/depression Continue Zoloft. Currently the patient is stable. DVT prophylaxis, continue SCDs. Patient is ambulatory.
[2018-03-26] MEDS: Methadone 10 MG Tablet PO SCH ×4 (06:45→23:34)
[2018-03-26] MEDS: Sertraline 50 MG Tablet PO SCH (08:58)
[2018-03-26] MEDS: Senna/Docusate Sodium 8.6/50 MG Tablet PO SCH ×2 (08:59→22:36)
--- NOTE | 2018-03-26 10:55 | P.PNIM ---
Subjective Interval history: Patient says she did not sleep well last night. No other complaints. Physical Exam Vital signs: Vital Signs 03/25/18 12:00 03/25/18 16:00 03/25/18 20:00 Temperature 97.9 F 98.3 F 98.3 F Pulse Rate 67 67 61 Respiratory Rate 12 13 16 Blood Pressure 112/62 123/69 122/58 L Pulse Oximetry 99 99 97 03/26/18 00:00 03/26/18 04:00 03/26/18 08:00 Temperature 98.2 F 97.2 F L 97.4 F L Pulse Rate 59 L 61 68 Respiratory Rate 16 16 14 Blood Pressure 113/57 L 101/59 L 106/64 Pulse Oximetry 94 L 97 99 Intake & Output 03/25/18 03/26/18 03/26/18 18:59 06:59 18:59 Intake Total 580 / 580 1300 / 1300 100 / 100 Balance 580 / 580 1300 / 1300 100 / 100 Weight 87.3 kg Intake: IV 100 / 100 100 / 100 100 / 100 Maxipime Inj 2,000 MG In NS Inj 100 / 100 100 / 100 100 / 100 100 ML @ 200 mls/hr IV.SIG Q8HR [facility] Rx#:[id number] Oral 480 / 480 1200 / 1200 Other: # Voids 3 6 Date of Last Bowel Movement 03/25/18 # Bowel Movements 0 Narrative: HEENT extraocular movements are intact, clear oropharyngeal mucosa, no JVD Cardiovascular S1-S2 audible, RRR, no murmurs rubs or gallops Respiratory clear to auscultation bilaterally Abdomen soft, nontender, nondistended, normal bowel sounds Extremities no edema 2+ distal pulses in bilateral upper and lower extremities Neuro no focal neurological deficits. Results - Labs CBC & Chem 7: 03/23/18 06:54 03/16/18 04:15 Assessment and Plan - Assessment (1) Epidural abscess Code(s): G06.2 - Extradural and subdural abscess, unspecified Status: Acute (2) IVDU (intravenous drug user) Code(s): F19.90 - Other psychoactive substance use, unspecified, uncomplicated Status: Acute (3) Hepatitis C Code(s): B19.20 - Unspecified viral hepatitis C without hepatic coma Status: Acute - Plan This patient is a 28-year-old female with a diagnosis of hepatitis C, IV drug use, history of spinal abscess who presented to the emergency room with complaints of lower back pain for 3 days. Patient was recently admitted in mid February of this year and was treated for Serratia bacteremia. At that time there is also concern for epidural abscess and aspiration procedure was performed on the spine however cultures were negative. Her symptoms improved after discharge with Levaquin which she was scheduled to take for 10 weeks. She now returned to the emergency department with complaints of worsening lower back pain, MRI shows epidural fluid collection at L2-L3, discitis. Patient afebrile overnight. No change in the patient's current plan of care. CRP ordered for tomorrow. MRI will also be done in the next few days as per ID recs. 1. Epidural abscess, Blood cxs positive for Serratia. Patient afebrile overnight. No focal neurological deficits. Patient has remained afebrile, WBC count is normal, CRP elevated at 1.5, down trended to 1.1. Infectious disease following the patient. Blood cultures from 02/21/18 grew Serratia, repeat blood cultures on 03/14/2018 no growth to date. Infectious disease following the patient and recommends IV cefepime for 6-8 weeks. Repeat MRI will be done 2 weeks after the initiation of IV antibiotics, which will be in the next few days. Continue current pain medication regimen. Neurosurgery does not recommend any surgical intervention at this point. No current change in the plan of care. Continue current management. 2. IV drug use Patient states she has been off of drugs for approximately 1 month. Continue methadone 10 mg every 6 hours which is what the patient was taking prior to arrival at our hospital. Patient advised to avoid IV drug use. 3. Hepatitis C Recently diagnosed on her last admission. Patient can continue to follow-up outpatient with GI after she is ready for discharge. 4. Anxiety/depression Continue Zoloft. Currently the patient is stable. DVT prophylaxis, continue SCDs. Patient is ambulatory.
[2018-03-27] MEDS: Methadone 10 MG Tablet PO SCH ×3 (05:51→17:06)
[2018-03-27] MEDS: Sertraline 50 MG Tablet PO SCH (08:15)
[2018-03-27] MEDS: Senna/Docusate Sodium 8.6/50 MG Tablet PO SCH ×2 (08:16→22:10)
--- NOTE | 2018-03-27 13:10 | P.PNIM ---
Subjective Interval history: Patient is in no acute distress this morning. She does not have any complaints. Physical Exam Vital signs: Vital Signs 03/26/18 16:00 03/26/18 20:00 03/27/18 00:00 Temperature 98.2 F 98.3 F 98.2 F Pulse Rate 71 76 75 Respiratory Rate 16 16 16 Blood Pressure 121/77 113/57 L 114/65 Pulse Oximetry 98 98 97 03/27/18 04:00 03/27/18 06:25 03/27/18 08:00 Temperature 97.5 F L 97.6 F Pulse Rate 61 69 Respiratory Rate 16 18 18 Blood Pressure 111/64 103/60 Pulse Oximetry 99 95 03/27/18 12:00 Temperature 97.9 F Pulse Rate 73 Respiratory Rate 18 Blood Pressure 113/54 L Pulse Oximetry 99 Intake & Output 03/26/18 03/27/18 03/27/18 18:59 06:59 18:59 Intake Total 1160 / 1160 1160 / 1160 Balance 1160 / 1160 1160 / 1160 Weight 87.3 kg Intake: IV 200 / 200 200 / 200 Maxipime Inj 2,000 MG In NS Inj 200 / 200 200 / 200 100 ML @ 200 mls/hr IV.SIG Q8HR [facility] Rx#:[id number] Oral 960 / 960 960 / 960 Other: # Voids 4 5 Date of Last Bowel Movement 03/25/18 # Bowel Movements 0 Narrative: HEENT extraocular movements are intact, clear oropharyngeal mucosa, no JVD Cardiovascular S1-S2 audible, RRR, no murmurs rubs or gallops Respiratory clear to auscultation bilaterally Abdomen soft, nontender, nondistended, normal bowel sounds Extremities no edema 2+ distal pulses in bilateral upper and lower extremities Neuro no focal neurological deficits. Results - Labs CBC & Chem 7: 03/23/18 06:54 03/16/18 04:15 Laboratory Results - last 24 hr 03/27/18 08:36 C-Reactive Protein 0.84 H Assessment and Plan - Assessment (1) Epidural abscess Code(s): G06.2 - Extradural and subdural abscess, unspecified Status: Acute (2) IVDU (intravenous drug user) Code(s): F19.90 - Other psychoactive substance use, unspecified, uncomplicated Status: Acute (3) Hepatitis C Code(s): B19.20 - Unspecified viral hepatitis C without hepatic coma Status: Acute - Plan This patient is a 28-year-old female with a diagnosis of hepatitis C, IV drug use, history of spinal abscess who presented to the emergency room with complaints of lower back pain for 3 days. Patient was recently admitted in mid February of this year and was treated for Serratia bacteremia. At that time there is also concern for epidural abscess and aspiration procedure was performed on the spine however cultures were negative. Her symptoms improved after discharge with Levaquin which she was scheduled to take for 10 weeks. She now returned to the emergency department with complaints of worsening lower back pain, MRI shows epidural fluid collection at L2-L3, discitis. Patient afebrile overnight. No change in the patient's current plan of care. CRP improving. MRI will also be done in 2 weeks from ID note on 03/17/2018. 1. Epidural abscess, Blood cxs positive for Serratia. Patient afebrile overnight. No focal neurological deficits. Patient has remained afebrile, WBC count is normal, CRP elevated at 1.5, down trended to 1.1. Infectious disease following the patient. Blood cultures from 02/21/18 grew Serratia, repeat blood cultures on 03/14/2018 no growth to date. Infectious disease following the patient and recommends IV cefepime for 6-8 weeks. Continue current pain medication regimen. Neurosurgery does not recommend any surgical intervention at this point. No current change in the plan of care. Continue current management. 2. IV drug use Patient states she has been off of drugs for approximately 1 month. Continue methadone 10 mg every 6 hours which is what the patient was taking prior to arrival at our hospital. Patient advised to avoid IV drug use. 3. Hepatitis C Recently diagnosed on her last admission. Patient can continue to follow-up outpatient with GI after she is ready for discharge. 4. Anxiety/depression Continue Zoloft. Currently the patient is stable. DVT prophylaxis, continue SCDs. Patient is ambulatory.
[2018-03-28] MEDS: Methadone 10 MG Tablet PO SCH ×5 (00:02→23:22)
[2018-03-28] MEDS: Sertraline 50 MG Tablet PO SCH (08:27)
[2018-03-28] MEDS: Senna/Docusate Sodium 8.6/50 MG Tablet PO SCH ×2 (08:28→20:13)
--- NOTE | 2018-03-28 10:43 | P.PNIM ---
Subjective Interval history: Patient sitting upright in bed. No specific complaints from her today. Physical Exam Vital signs: Vital Signs 03/27/18 12:00 03/27/18 16:00 03/27/18 20:00 Temperature 97.9 F 98.0 F 97.8 F Pulse Rate 73 57 L 68 Respiratory Rate 18 18 20 Blood Pressure 113/54 L 111/72 121/81 Pulse Oximetry 99 99 100 03/28/18 00:00 03/28/18 00:32 03/28/18 04:00 Temperature 98.2 F 97.8 F Pulse Rate 67 66 Respiratory Rate 20 16 20 Blood Pressure 113/59 L 119/64 Pulse Oximetry 99 99 03/28/18 04:30 03/28/18 06:15 03/28/18 08:00 Temperature 97.6 F Pulse Rate 59 L Respiratory Rate 16 18 18 Blood Pressure 103/59 L Pulse Oximetry 96 Intake & Output 03/27/18 03/28/18 03/28/18 18:59 06:59 18:59 Intake Total 100 / 100 620 / 620 Balance 100 / 100 620 / 620 Weight 86.9 kg Intake: IV 100 / 100 200 / 200 Maxipime Inj 2,000 MG In NS Inj 100 / 100 200 / 200 100 ML @ 200 mls/hr IV.SIG Q8HR [facility] Rx#:[id number] Oral 420 / 420 Other: # Voids 3 3 # Bowel Movements 1 Narrative: No current complaints from the patient HEENT extraocular movements are intact, clear oropharyngeal mucosa, no JVD Cardiovascular S1-S2 audible, RRR, no murmurs rubs or gallops Respiratory clear to auscultation bilaterally Abdomen soft, nontender, nondistended, normal bowel sounds Extremities no edema 2+ distal pulses in bilateral upper and lower extremities Neuro no focal neurological deficits. Results - Labs CBC & Chem 7: 03/23/18 06:54 03/16/18 04:15 Assessment and Plan - Assessment (1) Epidural abscess Code(s): G06.2 - Extradural and subdural abscess, unspecified Status: Acute (2) IVDU (intravenous drug user) Code(s): F19.90 - Other psychoactive substance use, unspecified, uncomplicated Status: Acute (3) Hepatitis C Code(s): B19.20 - Unspecified viral hepatitis C without hepatic coma Status: Acute - Plan This patient is a 28-year-old female with a diagnosis of hepatitis C, IV drug use, history of spinal abscess who presented to the emergency room with complaints of lower back pain for 3 days. Patient was recently admitted in mid February of this year and was treated for Serratia bacteremia. At that time there is also concern for epidural abscess and aspiration procedure was performed on the spine however cultures were negative. Her symptoms improved after discharge with Levaquin which she was scheduled to take for 10 weeks. She now returned to the emergency department with complaints of worsening lower back pain, MRI shows epidural fluid collection at L2-L3, discitis. 03/28/18 Patient without any significant complaints of pain currently. Patient afebrile overnight. No change in the patient's current plan of care. CRP improving. MRI will also be done in 2 weeks from ID note on 03/17/2018. 1. Epidural abscess, Blood cxs positive for Serratia. Patient afebrile overnight. No focal neurological deficits. Patient has remained afebrile, WBC count is normal, CRP elevated at 1.5, down trended to 1.1. Infectious disease following the patient. Blood cultures from 02/21/18 grew Serratia, repeat blood cultures on 03/14/2018 no growth to date. Infectious disease following the patient and recommends IV cefepime for 6-8 weeks. Continue current pain medication regimen. Neurosurgery does not recommend any surgical intervention at this point. No current change in the plan of care. Continue current management. 2. IV drug use Patient states she has been off of drugs for approximately 1 month. Continue methadone 10 mg every 6 hours which is what the patient was taking prior to arrival at our hospital. Patient advised to avoid IV drug use. 3. Hepatitis C Recently diagnosed on her last admission. Patient can continue to follow-up outpatient with GI after she is ready for discharge. 4. Anxiety/depression Continue Zoloft. Currently the patient is stable. DVT prophylaxis, continue SCDs. Patient is ambulatory.
[2018-03-29] MEDS: Methadone 10 MG Tablet PO SCH ×4 (05:29→23:38)
[2018-03-29] MEDS: Sertraline 50 MG Tablet PO SCH (09:36)
[2018-03-29] MEDS: Senna/Docusate Sodium 8.6/50 MG Tablet PO SCH ×2 (09:36→20:09)
--- NOTE | 2018-03-29 10:06 | P.PNIM ---
Subjective Interval history: Patient in no acute distress. No complaints from her today. Physical Exam Vital signs: Vital Signs 03/28/18 12:00 03/28/18 16:00 03/28/18 20:00 Temperature 97.5 F L 97.9 F 98.4 F Pulse Rate 66 69 70 Respiratory Rate 18 18 20 Blood Pressure 107/52 L 123/59 L 105/59 L Pulse Oximetry 95 96 99 03/29/18 00:00 03/29/18 04:00 03/29/18 08:00 Temperature 98.2 F 97.7 F 97.8 F Pulse Rate 70 60 58 L Respiratory Rate 20 20 18 Blood Pressure 101/56 L 116/67 100/62 Pulse Oximetry 98 97 97 Intake & Output 03/28/18 03/29/18 03/29/18 18:59 06:59 18:59 Intake Total 100 / 100 480 / 480 100 / 100 Output Total 2700 / 2700 Balance -2600 / -2600 480 / 480 100 / 100 Weight 87.7 kg Intake: IV 100 / 100 100 / 100 100 / 100 Maxipime Inj 2,000 MG In NS Inj 100 / 100 100 / 100 100 / 100 100 ML @ 200 mls/hr IV.SIG Q8HR [facility] Rx#:[id number] Oral 380 / 380 Output: Urine 2700 / 2700 Other: # Voids 3 # Bowel Movements 2 Narrative: No current complaints from the patient HEENT extraocular movements are intact, clear oropharyngeal mucosa, no JVD Cardiovascular S1-S2 audible, RRR, no murmurs rubs or gallops Respiratory clear to auscultation bilaterally Abdomen soft, nontender, nondistended, normal bowel sounds Extremities no edema 2+ distal pulses in bilateral upper and lower extremities Neuro no focal neurological deficits. Results - Labs CBC & Chem 7: 03/23/18 06:54 03/16/18 04:15 Assessment and Plan - Assessment (1) Epidural abscess Code(s): G06.2 - Extradural and subdural abscess, unspecified Status: Acute (2) IVDU (intravenous drug user) Code(s): F19.90 - Other psychoactive substance use, unspecified, uncomplicated Status: Acute (3) Hepatitis C Code(s): B19.20 - Unspecified viral hepatitis C without hepatic coma Status: Acute - Plan This patient is a 28-year-old female with a diagnosis of hepatitis C, IV drug use, history of spinal abscess who presented to the emergency room with complaints of lower back pain for 3 days. Patient was recently admitted in mid February of this year and was treated for Serratia bacteremia. At that time there is also concern for epidural abscess and aspiration procedure was performed on the spine however cultures were negative. Her symptoms improved after discharge with Levaquin which she was scheduled to take for 10 weeks. She now returned to the emergency department with complaints of worsening lower back pain, MRI shows epidural fluid collection at L2-L3, discitis. 03/29/18 Patient without any significant complaints of pain currently. Patient afebrile overnight. Plan for today will be to repeat MRI of the lumbar spine to evaluate the abscess. Continue IV antibiotics. Will follow up the results of the MRI. CRP improving. IVF x 24 hrs. 1. Epidural abscess, Blood cxs positive for Serratia. Patient afebrile overnight. No focal neurological deficits. Patient has remained afebrile, WBC count is normal, CRP elevated at 1.5, down trended to 1.1. Infectious disease following the patient. Blood cultures from 02/21/18 grew Serratia, repeat blood cultures on 03/14/2018 no growth to date. Infectious disease following the patient and recommends IV cefepime for 6-8 weeks. Continue current pain medication regimen. Neurosurgery does not recommend any surgical intervention at this point. No current change in the plan of care. Continue current management. 2. IV drug use Patient states she has been off of drugs for approximately 1 month. Continue methadone 10 mg every 6 hours which is what the patient was taking prior to arrival at our hospital. Patient advised to avoid IV drug use. 3. Hepatitis C Recently diagnosed on her last admission. Patient can continue to follow-up outpatient with GI after she is ready for discharge. 4. Anxiety/depression Continue Zoloft. Currently the patient is stable. DVT prophylaxis, continue SCDs. Patient is ambulatory.
[2018-03-29] MEDS: Sod Chloride 0.9% Inj 1,000 ML IV.CONT SCH ×2 (13:41→18:20)
[2018-03-29] MEDS ORDERED: Gadobutrol PF 2 MMOL/2 ML Vial (for RAD) IV.SIG ONE (17:28)
--- NOTE | 2018-03-29 17:48 | MR ---
EXAM DATE: 03/29/2018 5:35 PM EST AGE/SEX: 28 years / Female INDICATIONS: Abscess. CLINICAL DATA: This is the patient's subsequent encounter. Patient reports that signs and symptoms h ave been present for 2 weeks and indicates a pain score of 6/10. MEDICAL/SURGICAL HISTORY: None. . Hand surgery. Back surgeries. COMPARISON: [facility] [place], MR LUMBAR SPINE W & W/O CONTRAST, 03/14/2018. . TECHNIQUE: Multiplanar, multisequence MRI examination of the lumbar spine was performed without and with 8 ml Gadavist (gadobutrol) contrast as a single exam dose. FINDINGS: The most caudal-appearing lumbar vertebra is numbered as L5. Vertebra: Abnormal edema/enhancement is seen involving L2 and L3 vertebral bodies including T2 signal abnormality and enhancement of the disc at L2-3 consistent with discitis and osteomyelitis. There ar e fluid collections in the anterior and lateral paravertebral regions extending from L1 to L4. The ab normal fluid collection in the anterior epidural space is again seen at L2 and L3, appears unchanged. This does extend into the neural foramen greatest at L2-3 and to a lesser degree at L3-4. T12-L1: The thecal sac has a normal diameter. No evidence of disc bulge or protrusion. The neural foramina are patent bilaterally. L1-L2: The thecal sac has a normal diameter. No evidence of disc bulge or protrusion. The neural foramina are patent bilaterally. L2-L3: Anterior epidural fluid collection at L2-3 without significant change.. The neural foramina are patent bilaterally. L3-L4: Minimal impression upon the anterior thecal sac. No canal stenosis. The neural foramina are patent bilaterally. L4-L5: Mild left-sided broad-based protrusion abuts ventral thecal sac. Mild facet arthropathy. No canal stenosis. The neural foramina are patent bilaterally. L5-S1: The thecal sac has a normal diameter. No evidence of disc bulge or protrusion. The neural foramina are patent bilaterally. CONCLUSION: 1. Discitis and osteomyelitis at L2-3 does not appear to have significantly changed. 2. There is involvement of the anterior and lateral paravertebral regions from L1 L4. Electronically signed by: Keith Wilhelm MD Board Certified Radiologist 03/29/2018 5:47 PM EST
[2018-03-30] MEDS: Sod Chloride 0.9% Inj 1,000 ML IV.CONT SCH ×2 (05:20→10:00)
[2018-03-30] MEDS: Methadone 10 MG Tablet PO SCH ×4 (05:20→23:14)
[2018-03-30 05:29] LABS: Anion Gap 4 meq/L (5-15); Blood Urea Nitrogen 11 mg/dL (7-18); Calcium 8.4 mg/dL (8.5-10.1); Carbon Dioxide 31.7 meq/L (21.0-32.0); Chloride 104 meq/L (98-107); Glomerular Filtration Rate Greater Than 89 mL/min (>89); Glucose,Random 81 mg/dL (74-106); Magnesium 2.1 mg/dL (1.5-2.5); Potassium 4.2 meq/L (3.5-5.1); Sodium 140 meq/L (136-145)
[2018-03-30] MEDS: Sertraline 50 MG Tablet PO SCH (09:57)
[2018-03-30] MEDS: Senna/Docusate Sodium 8.6/50 MG Tablet PO SCH ×2 (09:59→21:50)
--- NOTE | 2018-03-30 10:50 | P.PNIM ---
Subjective Interval history: MRI reviewed with the patient. Essentially unchanged. She has no new complaints. She states she is feeling well otherwise. Physical Exam Vital signs: Last Vital Signs Temp 97.3 F L 03/30/18 08:00 Pulse 52 L 03/30/18 08:00 Resp 15 03/30/18 08:00 BP 120/75 03/30/18 08:00 Pulse Ox 99 03/30/18 08:00 Intake & Output 03/28/18 03/29/18 03/30/18 03/31/18 06:59 06:59 06:59 06:59 Intake Total 720 / 720 580 / 580 1360 / 1360 Output Total 2700 / 2700 Balance 720 / 720 -2120 / -2120 1360 / 1360 Weight 86.9 kg 87.7 kg 195.1 kg Narrative: No current complaints from the patient HEENT extraocular movements are intact, clear oropharyngeal mucosa, no JVD Cardiovascular S1-S2 audible, RRR, no murmurs rubs or gallops Respiratory clear to auscultation bilaterally Abdomen soft, nontender, nondistended, normal bowel sounds Extremities no edema 2+ distal pulses in bilateral upper and lower extremities Neuro no focal neurological deficits. Results Labs CBC & Chem 7: 03/23/18 06:54 03/30/18 04:43 Imaging Imaging: Impressions Lumbar Spine MRI 03/29/18 00:00 CONCLUSION: 1. Discitis and osteomyelitis at L2-3 does not appear to have significantly changed. 2. There is involvement of the anterior and lateral paravertebral regions from L1 L4. Assessment and Plan (1) Epidural abscess: Code(s): G06.2 - Extradural and subdural abscess, unspecified Status: Acute (2) IVDU (intravenous drug user): Code(s): F19.90 - Other psychoactive substance use, unspecified, uncomplicated Status: Acute (3) Hepatitis C: Code(s): B19.20 - Unspecified viral hepatitis C without hepatic coma Status: Acute Plan 28-year-old female with a diagnosis of hepatitis C, IV drug use, history of spinal abscess who presented to the emergency room with complaints of lower back pain for 3 days. Patient was recently admitted in mid February of this year and was treated for Serratia bacteremia. At that time there is also concern for epidural abscess and aspiration procedure was performed on the spine however cultures were negative. Her symptoms improved after discharge with Levaquin which she was scheduled to take for 10 weeks. She now returned to the emergency department with complaints of worsening lower back pain, MRI shows epidural fluid collection at L2-L3, discitis. 03/30/18 Patient without any significant complaints of pain currently. Patient afebrile overnight. Repeat MRI essentially is unchanged. Discussed with infectious disease. Continue IV antibiotics with cefepime. Levaquin has been added. Follow-up weekly ESR. Plan for 6-8 weeks of antibiotics per ID. 1. Epidural abscess, Blood cxs positive for Serratia. Patient afebrile overnight. No focal neurological deficits. Patient has remained afebrile, WBC count is normal, CRP elevated at 1.5, down trended to 1.1. Infectious disease following the patient. Blood cultures from 02/21/18 grew Serratia, repeat blood cultures on 03/14/2018 no growth to date. Infectious disease following the patient and recommends IV cefepime for 6-8 weeks. Continue current pain medication regimen. Neurosurgery does not recommend any surgical intervention at this point. Continue current management. 2. IV drug use Patient states she has been off of drugs for approximately 1 month. Continue methadone 10 mg every 6 hours which is what the patient was taking prior to arrival at our hospital. Patient advised on complete cessation. 3. Hepatitis C Recently diagnosed on her last admission. Patient can continue to follow-up outpatient with GI after she is ready for discharge. 4. Anxiety/depression Continue Zoloft. Currently the patient is stable. Noncompliance: Patient strongly advised to remain in the hospital for treatment. She was counseled to not leave AMA. DVT prophylaxis, continue SCDs. Patient is ambulatory. Progress Note: Quality VTE Deep Vein Thrombosis/Pulmonary Embolism Present on Admission: No _ (1) Hepatitis C Qualifiers: Hepatic coma status: Viral hepatitis chronicity:
--- NOTE | 2018-03-30 13:39 | P.PNID ---
Subjective Remarks: Patient notes her back pain is getting better. No other complaints. Afebrile. Repeat MRI shows no improvement. 28-year-old white female who presented to the emergency department with back pain. The patient was recently admitted to the hospital and diagnosed with abscess and diskitis of the lumbar spine and also was noted to have osteomyelitis as well. The patient was in the hospital and was treated with IV antibiotics. An aspiration procedure was performed on the spine and the culture was negative. Blood cultures were positive with Serratia in 4 of 4 bottles. The patient was treated with IV antibiotics and she improved. Her back pain had gotten a lot better and she was transitioned to oral antibiotic in the form of Levaquin and was discharged to continue antibiotics with Levaquin for 10 weeks. She was discharged on 03/06/2018. The patient did not fill the prescription for Levaquin because she said she could not afford it. She presented to the emergency department again because her pain worsened and she got to the point where she was ambulating with a cane that belongs to her father. She was evaluated in the emergency department and repeat MRI of the spine showed slight progression in the vertebral epidural fluid collection at L2-L3 with findings consistent with L2-L3 diskitis, adjacent osteomyelitis and epidural abscess. The epidural abscess is noted to not be percutaneously accessible for drainage because of its location and size. Neurosurgery was consulted. I Past Medical History: PAST MEDICAL HISTORY: Hepatitis C, history of IV drug abuse. The patient denies recent IV drug use. History of hand surgery, history of right foot surgery. Allergies/Adverse Reactions: Allergies Sulfa (Sulfonamide Antibiotics) Allergy (Severe, Verified 03/14/18 21:53) Anaphylaxis Objective Vital Signs 03/29/18 16:00 03/29/18 20:00 03/30/18 00:00 Temperature 98.0 F 97.7 F 97.8 F Pulse Rate 62 74 66 Respiratory Rate 18 18 18 Blood Pressure 113/65 109/59 L 97/64 L Pulse Oximetry 98 95 97 03/30/18 04:00 03/30/18 08:00 03/30/18 12:00 Temperature 97.5 F L 97.3 F L 97.5 F L Pulse Rate 57 L 52 L 78 Respiratory Rate 18 15 16 Blood Pressure 115/69 120/75 126/76 Pulse Oximetry 97 99 100 Intake & Output 12/03/30/18 03/30/18 18:59 06:59 18:59 Intake Total 920 / 920 440 / 440 Balance 920 / 920 440 / 440 Weight 195.1 kg Intake: IV 200 / 200 200 / 200 Maxipime Inj 2,000 MG In NS Inj 200 / 200 200 / 200 100 ML @ 200 mls/hr IV.SIG Q8HR [facility] Rx#:[id number] Oral 720 / 720 240 / 240 Other: # Voids 1 2 Date of Last Bowel Movement 03/25/18 Lab - Chemistry Results 03/30/18 04:43 Sodium 140 Potassium 4.2 Chloride 104 Carbon Dioxide 31.7 Anion Gap 4 L BUN 11 Creatinine 0.51 Estimated GFR Greater than 89 Random Glucose 81 Calcium 8.4 L Magnesium 2.1 Imaging: ITS Impressions Lumbar Spine MRI 03/29/18 00:00 CONCLUSION: 1. Discitis and osteomyelitis at L2-3 does not appear to have significantly changed. 2. There is involvement of the anterior and lateral paravertebral regions from L1 L4. Physical Exam: GENERAL: No acute distress. HEENT: Head is atraumatic. Extraocular movements grossly intact. Pupils reactive to light. No icterus. Oropharynx moist mucosa without lesions. NECK: Supple without adenopathy. LUNGS: Clear to auscultation. HEART: Regular S1 and S2. No audible murmurs. ABDOMEN: Bowel sounds present. Soft, no tenderness appreciated. BACK: Mild tenderness to palpation of the lower back on the right side of the vertebral column. EXTREMITIES: No clubbing, cyanosis or edema. SKIN: No rash. NEUROLOGIC: No gross focal finding. PSYCHIATRIC: Calm and cooperative. Assessment and Plan - Plan IMPRESSION: Lumbar vertebral abscess/diskitis/osteomyelitis. Recent bacteremia due to Serratia. Worsened since prior hospitalization. RECOMMENDATIONS: Continue cefepime. Add Levaquin. Because of the patient's inability to comply with medication and treatment, continue IV antibiotics in the hospital and follow the sedimentation rate and C-reactive protein to assess response to treatment. I would like to see the sedimentation rate normalized. Plan on 6 weeks - 8 weeks treatment. I have explained to her the necessity to continue with IV antibiotics and advised her against signing out AGAINST MEDICAL ADVICE. She notifies me that she will remain in the hospital for the treatment. She risk very severe complications from lack of adequate treatment for this infection.
[2018-03-31] MEDS: Methadone 10 MG Tablet PO SCH ×3 (05:16→17:42)
[2018-03-31 07:09] LABS: Hematocrit 31.6 % (35.0-46.0); Hemoglobin 10.8 gm/dL (11.6-15.3); Mean Corpuscular HGB Conc 34.1 % (32.0-36.0); Mean Corpuscular Hemoglobin 25.8 pg (27.0-34.0); Mean Corpuscular Volume 75.7 fL (80.0-100.0); Mean Platelet Volume 7.6 fL (7.0-11.0); Platelet Count 171 th/mm3 (150-450); Red Blood Count 4.17 mil/mm3 (4.00-5.30); Red Cell Distribution Width 15.1 % (11.6-17.2); White Blood Count 3.7 th/mm3 (4.0-11.0)
[2018-03-31 07:45] LABS: Anion Gap 4 meq/L (5-15); Blood Urea Nitrogen 13 mg/dL (7-18); Calcium 8.5 mg/dL (8.5-10.1); Carbon Dioxide 32.3 meq/L (21.0-32.0); Chloride 102 meq/L (98-107); Glomerular Filtration Rate Greater Than 89 mL/min (>89); Glucose,Random 77 mg/dL (74-106); Sodium 138 meq/L (136-145)
[2018-03-31] MEDS: Senna/Docusate Sodium 8.6/50 MG Tablet PO SCH ×2 (09:30→21:10)
[2018-03-31] MEDS: Sertraline 50 MG Tablet PO SCH (09:31)
--- NOTE | 2018-03-31 10:03 | P.PNIM ---
Subjective Interval history: Patient reports she is feeling okay today. No new issues. Physical Exam Vital signs: Last Vital Signs Temp 97.6 F 03/31/18 08:00 Pulse 81 03/31/18 09:27 Resp 16 03/31/18 08:00 BP 121/71 03/31/18 09:27 Pulse Ox 97 03/31/18 08:00 Intake & Output 03/29/18 03/30/18 03/31/18 04/01/18 06:59 06:59 06:59 06:59 Intake Total 580 / 580 1360 / 1360 1390 / 1390 Output Total 2700 / 2700 Balance -2120 / -2120 1360 / 1360 1390 / 1390 Weight 87.7 kg 195.1 kg Narrative: No current complaints from the patient Cardiovascular S1-S2 audible, RRR, no murmurs rubs or gallops Respiratory clear to auscultation bilaterally Abdomen soft, nontender, nondistended, normal bowel sounds Extremities no edema 2+ distal pulses in bilateral upper and lower extremities Neuro no focal neurological deficits. Results Labs CBC & Chem 7: 03/31/18 06:09 03/31/18 06:09 Assessment and Plan (1) Epidural abscess: Code(s): G06.2 - Extradural and subdural abscess, unspecified Status: Acute (2) IVDU (intravenous drug user): Code(s): F19.90 - Other psychoactive substance use, unspecified, uncomplicated Status: Acute (3) Hepatitis C: Code(s): B19.20 - Unspecified viral hepatitis C without hepatic coma Status: Acute Plan 28-year-old female with a diagnosis of hepatitis C, IV drug use, history of spinal abscess who presented to the emergency room with complaints of lower back pain for 3 days. Patient was recently admitted in mid February of this year and was treated for Serratia bacteremia. At that time there is also concern for epidural abscess and aspiration procedure was performed on the spine however cultures were negative. Her symptoms improved after discharge with Levaquin which she was scheduled to take for 10 weeks. She now returned to the emergency department with complaints of worsening lower back pain, MRI shows epidural fluid collection at L2-L3, discitis. 03/31/18 No new issues. Continue IV antibiotics with cefepime. Levaquin has been added. Follow-up weekly ESR. Plan for 6-8 weeks of antibiotics per ID. Repeat MRI essentially is unchanged. Previously discussed with infectious disease. 1. Epidural abscess, Blood cxs positive for Serratia. Patient afebrile overnight. No focal neurological deficits. Patient has remained afebrile, WBC count is normal, CRP elevated at 1.5, down trended to 1.1. Infectious disease following the patient. Blood cultures from 02/21/18 grew Serratia, repeat blood cultures on 03/14/2018 no growth to date. Infectious disease following the patient and recommends IV cefepime for 6-8 weeks. Continue current pain medication regimen. Neurosurgery does not recommend any surgical intervention at this point. Continue current management. 2. IV drug use Patient states she has been off of drugs for approximately 1 month. Continue methadone 10 mg every 6 hours which is what the patient was taking prior to arrival at our hospital. Patient advised on complete cessation. 3. Hepatitis C Recently diagnosed on her last admission. Patient can continue to follow-up outpatient with GI after she is ready for discharge. 4. Anxiety/depression Continue Zoloft. Currently the patient is stable. Noncompliance: Patient strongly advised to remain in the hospital for treatment. She was counseled to not leave AMA. DVT prophylaxis, continue SCDs. Patient is ambulatory. Progress Note: Quality VTE Deep Vein Thrombosis/Pulmonary Embolism Present on Admission: No _ (1) Hepatitis C Qualifiers: Hepatic coma status: Viral hepatitis chronicity:
[2018-04-01] MEDS: Methadone 10 MG Tablet PO SCH ×5 (01:08→23:41)
[2018-04-01] MEDS: Senna/Docusate Sodium 8.6/50 MG Tablet PO SCH ×2 (10:10→21:45)
[2018-04-01] MEDS: Sertraline 50 MG Tablet PO SCH (10:13)
--- NOTE | 2018-04-01 11:58 | P.PNIM ---
Subjective Interval history: Patient reports she is feeling okay today. No new issues. Afebrile. Physical Exam Vital signs: Last Vital Signs Temp 97.6 F 04/01/18 08:00 Pulse 63 04/01/18 08:00 Resp 20 04/01/18 08:00 BP 126/62 04/01/18 08:00 Pulse Ox 99 04/01/18 08:00 Intake & Output 03/30/18 03/31/18 04/01/18 04/02/18 06:59 06:59 06:59 06:59 Intake Total 1360 / 1360 1390 / 1390 1940 / 1940 Balance 1360 / 1360 1390 / 1390 1940 / 1940 Weight 195.1 kg 89.4 kg Narrative: No current complaints from the patient Cardiovascular S1-S2 audible, RRR, no murmurs rubs or gallops Respiratory clear to auscultation bilaterally Abdomen soft, nontender, nondistended, normal bowel sounds Extremities no edema 2+ distal pulses in bilateral upper and lower extremities Neuro no focal neurological deficits. Results Labs CBC & Chem 7: 03/31/18 06:09 03/31/18 06:09 Assessment and Plan (1) Epidural abscess: Code(s): G06.2 - Extradural and subdural abscess, unspecified Status: Acute (2) IVDU (intravenous drug user): Code(s): F19.90 - Other psychoactive substance use, unspecified, uncomplicated Status: Acute (3) Hepatitis C: Code(s): B19.20 - Unspecified viral hepatitis C without hepatic coma Status: Acute Plan 28-year-old female with a diagnosis of hepatitis C, IV drug use, history of spinal abscess who presented to the emergency room with complaints of lower back pain for 3 days. Patient was recently admitted in mid February of this year and was treated for Serratia bacteremia. At that time there is also concern for epidural abscess and aspiration procedure was performed on the spine however cultures were negative. Her symptoms improved after discharge with Levaquin which she was scheduled to take for 10 weeks. She now returned to the emergency department with complaints of worsening lower back pain, MRI shows epidural fluid collection at L2-L3, discitis. 04/01/18 No new issues. Continue IV antibiotics with cefepime. Levaquin has been added per ID. Follow- up weekly ESR. Plan for 6-8 weeks of antibiotics per ID. Repeat MRI essentially is unchanged. Previously discussed with infectious disease and the patient. 1. Epidural abscess, Blood cxs positive for Serratia. Patient afebrile overnight. No focal neurological deficits. Patient has remained afebrile, WBC count is normal, CRP elevated at 1.5, down trended to 1.1. Infectious disease following the patient. Blood cultures from 02/21/18 grew Serratia, repeat blood cultures on 03/14/2018 no growth to date. Infectious disease following the patient and recommends IV cefepime for 6-8 weeks. Continue current pain medication regimen. Neurosurgery does not recommend any surgical intervention at this point. Continue current management. 2. IV drug use Patient states she has been off of drugs for approximately 1 month. Continue methadone 10 mg every 6 hours which is what the patient was taking prior to arrival at our hospital. Patient advised on complete cessation. 3. Hepatitis C Recently diagnosed on her last admission. Patient can continue to follow-up outpatient with GI after she is ready for discharge. 4. Anxiety/depression Continue Zoloft. Currently the patient is stable. Noncompliance: Patient strongly advised to remain in the hospital for treatment. She was counseled to not leave AMA. DVT prophylaxis, continue SCDs. Patient is ambulatory. Progress Note: Quality VTE Deep Vein Thrombosis/Pulmonary Embolism Present on Admission: No _ (1) Hepatitis C Qualifiers: Hepatic coma status: Viral hepatitis chronicity:
[2018-04-01] MEDS: Ibuprofen 600 MG Tablet PO PRN (19:03)
[2018-04-02] MEDS: Methadone 10 MG Tablet PO SCH ×3 (06:39→21:28)
[2018-04-02] MEDS: Senna/Docusate Sodium 8.6/50 MG Tablet PO SCH ×2 (08:53→21:28)
[2018-04-02] MEDS: Sertraline 50 MG Tablet PO SCH (08:55)
--- NOTE | 2018-04-02 12:08 | P.PNIM ---
Subjective Interval history: Patient reports she is feeling okay today. She is requesting a medication to help her sleep at night and she requested that we change the methadone frequency so she can sleep through the night. Physical Exam Vital signs: Last Vital Signs Temp 97.6 F 04/02/18 08:00 Pulse 62 04/02/18 08:00 Resp 18 04/02/18 08:00 BP 99/52 L 04/02/18 08:00 Pulse Ox 98 04/02/18 08:00 Intake & Output 03/31/18 04/01/18 04/02/18 04/03/18 06:59 06:59 06:59 06:59 Intake Total 1390 / 1390 1940 / 1940 1590 / 1590 Balance 1390 / 1390 1940 / 1940 1590 / 1590 Weight 89.4 kg 89.9 kg Narrative: No current complaints from the patient Cardiovascular S1-S2 audible, RRR, no murmurs rubs or gallops Respiratory clear to auscultation bilaterally Abdomen soft, nontender, nondistended, normal bowel sounds Extremities no edema 2+ distal pulses in bilateral upper and lower extremities Neuro no focal neurological deficits. Results Labs CBC & Chem 7: 03/31/18 06:09 03/31/18 06:09 Assessment and Plan (1) Epidural abscess: Code(s): G06.2 - Extradural and subdural abscess, unspecified Status: Acute (2) IVDU (intravenous drug user): Code(s): F19.90 - Other psychoactive substance use, unspecified, uncomplicated Status: Acute (3) Hepatitis C: Code(s): B19.20 - Unspecified viral hepatitis C without hepatic coma Status: Acute Plan 28-year-old female with a diagnosis of hepatitis C, IV drug use, history of spinal abscess who presented to the emergency room with complaints of lower back pain for 3 days. Patient was recently admitted in mid February of this year and was treated for Serratia bacteremia. At that time there is also concern for epidural abscess and aspiration procedure was performed on the spine however cultures were negative. Her symptoms improved after discharge with Levaquin which she was scheduled to take for 10 weeks. She now returned to the emergency department with complaints of worsening lower back pain, MRI shows epidural fluid collection at L2-L3, discitis. 04/02/18 Continue IV antibiotics with cefepime. Levaquin has been added per ID. Follow- up weekly ESR. Plan for 6-8 weeks of antibiotics per ID. Repeat MRI essentially is unchanged. Previously discussed with infectious disease and the patient. Change methadone to every 8 hours. Add Restoril as needed for sleep. 1. Epidural abscess, Blood cxs positive for Serratia. Patient afebrile overnight. No focal neurological deficits. Patient has remained afebrile, WBC count is normal, CRP elevated at 1.5, down trended to 1.1. Infectious disease following the patient. Blood cultures from 02/21/18 grew Serratia, repeat blood cultures on 03/14/2018 no growth to date. Infectious disease following the patient and recommends IV cefepime for 6-8 weeks. Continue current pain medication regimen. Neurosurgery does not recommend any surgical intervention at this point. Continue current management. 2. IV drug use Patient states she has been off of drugs for approximately 1 month. Continue methadone 10 mg every 6 hours which is what the patient was taking prior to arrival at our hospital. Patient advised on complete cessation. 3. Hepatitis C Recently diagnosed on her last admission. Patient can continue to follow-up outpatient with GI after she is ready for discharge. 4. Anxiety/depression Continue Zoloft. Currently the patient is stable. Noncompliance: Patient strongly advised to remain in the hospital for treatment. She was counseled to not leave AMA. DVT prophylaxis, continue SCDs. Patient is ambulatory. Progress Note: Quality VTE Deep Vein Thrombosis/Pulmonary Embolism Present on Admission: No _ (1) Hepatitis C Qualifiers: Hepatic coma status: Viral hepatitis chronicity:
[2018-04-02] MEDS: Ibuprofen 600 MG Tablet PO PRN (13:11)
[2018-04-02] MEDS: Temazepam 15 MG Capsule PO PRN (23:19)
[2018-04-03 05:28] LABS: Hemoglobin 11.5 gm/dL (11.6-15.3); Mean Corpuscular HGB Conc 33.8 % (32.0-36.0); Mean Corpuscular Hemoglobin 25.3 pg (27.0-34.0); Mean Corpuscular Volume 74.9 fL (80.0-100.0); Mean Platelet Volume 7.7 fL (7.0-11.0); Platelet Count 172 th/mm3 (150-450); Red Blood Count 4.54 mil/mm3 (4.00-5.30); Red Cell Distribution Width 15.4 % (11.6-17.2); White Blood Count 4.2 th/mm3 (4.0-11.0)
[2018-04-03 05:47] LABS: Erythrocyte Sedimentation Rate 34 mm/hr (0-20)
[2018-04-03 05:58] LABS: Anion Gap 5 meq/L (5-15); Blood Urea Nitrogen 12 mg/dL (7-18); Calcium 8.5 mg/dL (8.5-10.1); Carbon Dioxide 30.3 meq/L (21.0-32.0); Chloride 104 meq/L (98-107); Glomerular Filtration Rate Greater Than 89 mL/min (>89); Glucose,Random 85 mg/dL (74-106); Potassium 3.8 meq/L (3.5-5.1); Sodium 139 meq/L (136-145)
[2018-04-03] MEDS: Methadone 10 MG Tablet PO SCH ×3 (06:42→21:59)
[2018-04-03] MEDS: Senna/Docusate Sodium 8.6/50 MG Tablet PO SCH ×2 (09:00→21:59)
[2018-04-03] MEDS: Ibuprofen 600 MG Tablet PO PRN (09:02)
[2018-04-03] MEDS: Sertraline 50 MG Tablet PO SCH (09:02)
--- NOTE | 2018-04-03 13:39 | P.PNIM ---
Subjective Interval history: Patient reports she is feeling okay today. We discussed the need to wean off oxycodone. She voiced understanding. Physical Exam Vital signs: Last Vital Signs Temp 97.8 F 04/03/18 12:00 Pulse 76 04/03/18 12:00 Resp 14 04/03/18 12:00 BP 112/61 04/03/18 12:00 Pulse Ox 98 04/03/18 12:00 Intake & Output 04/01/18 04/02/18 04/03/18 04/04/18 06:59 06:59 06:59 06:59 Intake Total 1939 / 0 1590 / 1590 1310 / 1310 100 / 100 Balance 194 / 1940 1590 / 1590 1310 / 1310 100 / 100 Weight 89.4 kg 89.9 kg Narrative: No current complaints from the patient Cardiovascular S1-S2 audible, RRR, no murmurs rubs or gallops Respiratory clear to auscultation bilaterally Abdomen soft, nontender, nondistended, normal bowel sounds Extremities no edema 2+ distal pulses in bilateral upper and lower extremities Neuro no focal neurological deficits. Results Labs CBC & Chem 7: 04/03/18 04:46 04/03/18 04:46 Assessment and Plan (1) Epidural abscess: Code(s): G06.2 - Extradural and subdural abscess, unspecified Status: Acute (2) IVDU (intravenous drug user): Code(s): F19.90 - Other psychoactive substance use, unspecified, uncomplicated Status: Acute (3) Hepatitis C: Code(s): B19.20 - Unspecified viral hepatitis C without hepatic coma Status: Acute Plan 28-year-old female with a diagnosis of hepatitis C, IV drug use, history of spinal abscess who presented to the emergency room with complaints of lower back pain for 3 days. Patient was recently admitted in mid February of this year and was treated for Serratia bacteremia. At that time there is also concern for epidural abscess and aspiration procedure was performed on the spine however cultures were negative. Her symptoms improved after discharge with Levaquin which she was scheduled to take for 10 weeks. She now returned to the emergency department with complaints of worsening lower back pain, MRI shows epidural fluid collection at L2-L3, discitis. 04/03/18 Continue IV antibiotics with cefepime. Levaquin has been added per ID. Follow- up weekly ESR. Plan for 6-8 weeks of antibiotics per ID. Repeat MRI essentially is unchanged. Previously discussed with infectious disease and the patient. Continue methadone to every 8 hours. Restoril as needed for sleep. Plan to continue to wean off oxycodone in the next couple of days. 1. Epidural abscess, Blood cxs positive for Serratia. Patient afebrile overnight. No focal neurological deficits. Patient has remained afebrile, WBC count is normal, CRP elevated at 1.5, down trended to 1.1. Infectious disease following the patient. Blood cultures from 02/21/18 grew Serratia, repeat blood cultures on 03/14/2018 no growth to date. Infectious disease following the patient and recommends IV cefepime for 6-8 weeks. Continue current pain medication regimen. Neurosurgery does not recommend any surgical intervention at this point. Continue current management. 2. IV drug use Patient states she has been off of drugs for approximately 1 month. Continue methadone 10 mg every 6 hours which is what the patient was taking prior to arrival at our hospital. Patient advised on complete cessation. 3. Hepatitis C Recently diagnosed on her last admission. Patient can continue to follow-up outpatient with GI after she is ready for discharge. 4. Anxiety/depression Continue Zoloft. Currently the patient is stable. Noncompliance: Patient strongly advised to remain in the hospital for treatment. She was counseled to not leave AMA. DVT prophylaxis, continue SCDs. Patient is ambulatory. Progress Note: Quality VTE Deep Vein Thrombosis/Pulmonary Embolism Present on Admission: No _ (1) Hepatitis C Qualifiers: Viral hepatitis chronicity: Hepatic coma status:
[2018-04-03] MEDS: Temazepam 15 MG Capsule PO PRN (22:03)
[2018-04-04] MEDS: Ibuprofen 600 MG Tablet PO PRN ×2 (05:54→20:26)
[2018-04-04] MEDS: Methadone 10 MG Tablet PO SCH ×3 (05:55→21:01)
[2018-04-04] MEDS: Sertraline 50 MG Tablet PO SCH (08:40)
[2018-04-04] MEDS: Senna/Docusate Sodium 8.6/50 MG Tablet PO SCH ×2 (08:40→20:29)
--- NOTE | 2018-04-04 15:23 | P.PNIM ---
Subjective Interval history: Patient has no new complaints. Doing well. Physical Exam Vital signs: Last Vital Signs Temp 98.1 F 04/04/18 12:00 Pulse 66 04/04/18 12:00 Resp 17 04/04/18 12:00 BP 110/53 L 04/04/18 12:00 Pulse Ox 95 04/04/18 12:00 Intake & Output 04/02/18 04/03/18 04/04/18 04/05/18 06:59 06:59 06:59 06:59 Intake Total 1590 / 1590 1310 / 1310 2014 115 / 115 Output Total 400 / 400 Balance 1590 / 1590 1310 / 1310 1615 / 1615 115 / 115 Weight 89.9 kg 89.9 kg Narrative: No current complaints from the patient Cardiovascular S1-S2 audible, RRR, no murmurs rubs or gallops Respiratory clear to auscultation bilaterally Abdomen soft, nontender, nondistended, normal bowel sounds Extremities no edema 2+ distal pulses in bilateral upper and lower extremities Neuro no focal neurological deficits. Results Labs CBC & Chem 7: 04/03/18 04:46 04/03/18 04:46 Assessment and Plan (1) Epidural abscess: Code(s): G06.2 - Extradural and subdural abscess, unspecified Status: Acute (2) IVDU (intravenous drug user): Code(s): F19.90 - Other psychoactive substance use, unspecified, uncomplicated Status: Acute (3) Hepatitis C: Code(s): B19.20 - Unspecified viral hepatitis C without hepatic coma Status: Acute Plan 28-year-old female with a diagnosis of hepatitis C, IV drug use, history of spinal abscess who presented to the emergency room with complaints of lower back pain for 3 days. Patient was recently admitted in mid February of this year and was treated for Serratia bacteremia. At that time there is also concern for epidural abscess and aspiration procedure was performed on the spine however cultures were negative. Her symptoms improved after discharge with Levaquin which she was scheduled to take for 10 weeks. She now returned to the emergency department with complaints of worsening lower back pain, MRI shows epidural fluid collection at L2-L3, discitis. 04/04/18 Continue IV antibiotics with cefepime. Levaquin has been added per ID. Follow- up weekly ESR. Plan for 6-8 weeks of antibiotics per ID. Repeat MRI essentially is unchanged. Previously discussed with infectious disease and the patient. Continue methadone to every 8 hours. Restoril as needed for sleep. Plan to continue to wean off oxycodone in the next couple of days. 1. Epidural abscess, Blood cxs positive for Serratia. Patient afebrile overnight. No focal neurological deficits. Patient has remained afebrile, WBC count is normal, CRP elevated at 1.5, down trended to 1.1. Infectious disease following the patient. Blood cultures from 02/21/18 grew Serratia, repeat blood cultures on 03/14/2018 no growth to date. Infectious disease following the patient and recommends IV cefepime for 6-8 weeks. Continue current pain medication regimen. Neurosurgery does not recommend any surgical intervention at this point. Continue current management. 2. IV drug use Patient states she has been off of drugs for approximately 1 month. Continue methadone 10 mg every 6 hours which is what the patient was taking prior to arrival at our hospital. Patient advised on complete cessation. 3. Hepatitis C Recently diagnosed on her last admission. Patient can continue to follow-up outpatient with GI after she is ready for discharge. 4. Anxiety/depression Continue Zoloft. Currently the patient is stable. Noncompliance: Patient strongly advised to remain in the hospital for treatment. She was counseled to not leave AMA. DVT prophylaxis, continue SCDs. Patient is ambulatory. Progress Note: Quality VTE Deep Vein Thrombosis/Pulmonary Embolism Present on Admission: No _ (1) Hepatitis C Qualifiers: Viral hepatitis chronicity: Hepatic coma status:
[2018-04-04] MEDS: Temazepam 15 MG Capsule PO PRN (21:01)
[2018-04-05] MEDS: Ibuprofen 600 MG Tablet PO PRN (04:59)
[2018-04-05] MEDS: Methadone 10 MG Tablet PO SCH ×2 (05:00→13:03)
[2018-04-05] MEDS: Sertraline 50 MG Tablet PO SCH (09:00)
[2018-04-05] MEDS: Senna/Docusate Sodium 8.6/50 MG Tablet PO SCH (09:00)
[2018-04-05 10:29] VITALS: RESP 20; O2SAT 99
--- NOTE | 2018-04-05 13:52 | P.PNIM ---
Subjective Interval history: Patient reports she is feeling okay today. She is sad because she has to spend [place] in the hospital. Has a 5-year-old son at home. No other complaints. Physical Exam Vital signs: Last Vital Signs Temp 97.6 F 04/05/18 08:00 Pulse 72 04/05/18 08:00 Resp 20 04/05/18 08:00 BP 102/72 04/05/18 08:00 Pulse Ox 99 04/05/18 08:00 Intake & Output 04/03/18 04/04/18 04/05/18 04/06/18 06:59 06:59 06:59 06:59 Intake Total 1310 / 1310 2014 955 / 955 100 / 100 Output Total 400 / 400 Balance 1310 / 1310 1615 / 1615 955 / 955 100 / 100 Weight 89.9 kg Narrative: No current complaints from the patient Cardiovascular S1-S2 audible, RRR, no murmurs rubs or gallops Respiratory clear to auscultation bilaterally Results Labs CBC & Chem 7: 04/03/18 04:46 04/03/18 04:46 Assessment and Plan (1) Epidural abscess: Code(s): G06.2 - Extradural and subdural abscess, unspecified Status: Acute (2) IVDU (intravenous drug user): Code(s): F19.90 - Other psychoactive substance use, unspecified, uncomplicated Status: Acute (3) Hepatitis C: Code(s): B19.20 - Unspecified viral hepatitis C without hepatic coma Status: Acute Plan 28-year-old female with a diagnosis of hepatitis C, IV drug use, history of spinal abscess who presented to the emergency room with complaints of lower back pain for 3 days. Patient was recently admitted in mid February of this year and was treated for Serratia bacteremia. At that time there is also concern for epidural abscess and aspiration procedure was performed on the spine however cultures were negative. Her symptoms improved after discharge with Levaquin which she was scheduled to take for 10 weeks. She now returned to the emergency department with complaints of worsening lower back pain, MRI shows epidural fluid collection at L2-L3, discitis. 04/05/18 Continue IV antibiotics with cefepime. Levaquin has been added per ID. Follow- up weekly ESR. Plan for 6-8 weeks of antibiotics per ID. Repeat MRI essentially is unchanged. Previously discussed with infectious disease and the patient. Continue methadone to every 8 hours. Restoril as needed for sleep. Wean off oxycodone. 1. Epidural abscess, Blood cxs positive for Serratia. Patient afebrile overnight. No focal neurological deficits. Patient has remained afebrile, WBC count is normal, CRP elevated at 1.5, down trended to 1.1. Infectious disease following the patient. Blood cultures from 02/21/18 grew Serratia, repeat blood cultures on 03/14/2018 no growth to date. Infectious disease following the patient and recommends IV cefepime for 6-8 weeks. Continue current pain medication regimen. Neurosurgery does not recommend any surgical intervention at this point. Continue current management. 2. IV drug use Patient states she has been off of drugs for approximately 1 month. Continue methadone 10 mg every 6 hours which is what the patient was taking prior to arrival at our hospital. Patient advised on complete cessation. 3. Hepatitis C Recently diagnosed on her last admission. Patient can continue to follow-up outpatient with GI after she is ready for discharge. 4. Anxiety/depression Continue Zoloft. Currently the patient is stable. Noncompliance: Patient strongly advised to remain in the hospital for treatment. She was counseled to not leave AMA. DVT prophylaxis, continue SCDs. Patient is ambulatory. Progress Note: Quality VTE Deep Vein Thrombosis/Pulmonary Embolism Present on Admission: No _ (1) Hepatitis C Qualifiers: Viral hepatitis chronicity: Hepatic coma status:
--- NOTE | 2018-04-05 16:06 | P.DS ---
DS: Providers Date of admission: 03/15/18 00:44 Primary care physician: UNKNOWN Consults: 03/15/18 00:41 Consult to Infectious Diseases Routine Consulting Provider: Berlin Bowling Reason for Consultation: Lumbar Discitis/Osteo/Abscess, IVDU CONSULT FOR AM Notified:: Service Spoke with:: jorge Date Notified:: 03/15/18 Time Notified:: 04:11 Ordering Provider: LILLIE 03/15/18 00:42 Consult to Neurosurgery Routine Consulting Provider: Christian Almanza Reason for Consultation: Epidural Abscess, IVDU CONSULT FOR AM Spoke with:: adding to dr almanza's list with courtesy all this AM Date Notified:: 03/15/18 Time Notified:: 06:10 Ordering Provider: LILLIE 03/15/18 10:56 Consult to Infectious Diseases Routine Consulting Provider: Berlin Bowling Preferred Jet Piercer Operator:: Berlin Bowling Patient known to:: Berlin Bowling Reason for Consultation: Discitis, epidural abscess patient known to you and on Cipro prescribed by you. Notified:: Service Spoke with:: Devika Date Notified:: 03/15/18 Time Notified:: 11:00 Ordering Provider: ZINA Brief History from admission: HPI as documented by the admitting physician. This is a 28-year-old female with a PMH of Hepatitis C, IVDU and h/o Spinal Abscess who presented to the ER w/ complaints of back pain x3 days. Recent admit 02/21-03/09/18 for similar complaints, MRI L-Spine 02/21/18 w/ epidural abscess, s/p eval by Dr. Almanza w/ Neurosurgery, recommendation for continuation of IV Abx, no surgical intervention, s/p aspiration by IR w/ cultures negative, B/C +Serratia, Echo w/ no evidence of vegetations, ultimately d/c'd on Levaquin PO x10wk per ID and instructions to follow up w/ GI as outpatient for new diagnosis of Hepatitis C. Pt returned to ER earlier today on 03/14/18 for c/o worsening back pain, states she did not fill prescription for Levaquin and off antibiotics since discharge. MRI L-Spine ordered by ER physician at that time for concern of ongoing infection, however pt refused MRI, was to be admitted for IV Abx, however LEFT AMA. Returns now w/ ongoing back pain. Finally agreed to MRI L-spine which shows progression of ventral epidural fluid collection at L2-L3 consistent w/ discitis, adjacent osteomyelitis and epidural abscess, no percutaneously accessible for drainage. S/p Vanc in ER. Pt requesting pain medication repeatedly. Patient update on day of discharge: Unfortunately I was notified the patient left the Hospital AMA. DS: Diagnosis Discharge Diagnosis (1) Epidural abscess: Status: Acute (2) IVDU (intravenous drug user): Status: Acute (3) Hepatitis C: Status: Acute DS: Summary 28-year-old female with a diagnosis of hepatitis C, IV drug use, history of spinal abscess who presented to the emergency room with complaints of lower back pain for 3 days. Patient was recently admitted in mid February of this year and was treated for Serratia bacteremia. At that time there is also concern for epidural abscess and aspiration procedure was performed on the spine however cultures were negative. Her symptoms improved after discharge with Levaquin which she was scheduled to take for 10 weeks. She now returned to the emergency department with complaints of worsening lower back pain, MRI shows epidural fluid collection at L2-L3, discitis. 04/05/18 Continue IV antibiotics with cefepime. Levaquin has been added per ID. Follow- up weekly ESR. Plan for 6-8 weeks of antibiotics per ID. Repeat MRI essentially is unchanged. Previously discussed with infectious disease and the patient. Continue methadone to every 8 hours. Restoril as needed for sleep. Weaned off oxycodone. 1. Epidural abscess, Blood cxs positive for Serratia. Patient afebrile overnight. No focal neurological deficits. Patient has remained afebrile, WBC count is normal, CRP elevated at 1.5, down trended to 1.1. Infectious disease following the patient. Blood cultures from 02/21/18 grew Serratia, repeat blood cultures on 03/14/2018 no growth to date. Infectious disease following the patient and recommends IV cefepime for 6-8 weeks. Continue current pain medication regimen. Neurosurgery does not recommend any surgical intervention at this point. Continue current management. 2. IV drug use Patient states she has been off of drugs for approximately 1 month. Continue methadone 10 mg every 6 hours which is what the patient was taking prior to arrival at our hospital. Patient advised on complete cessation. 3. Hepatitis C Recently diagnosed on her last admission. Patient can continue to follow-up outpatient with GI after she is ready for discharge. 4. Anxiety/depression Continue Zoloft. Currently the patient is stable. 04/05/18: Noncompliance: Patient strongly advised to remain in the hospital for treatment. Unfortunately the patient left the Hospital AMA again. Time Spent with Patient Total time spent providing and/or coordinating discharge services: Less than 30 minutes Quality: VTE Deep Vein Thrombosis/Pulmonary Embolism Present on Admission: No Results Impressions ITS Impressions Lumbar Spine MRI 03/29/18 00:00 CONCLUSION: 1. Discitis and osteomyelitis at L2-3 does not appear to have significantly changed. 2. There is involvement of the anterior and lateral paravertebral regions from L1 L4. Discharge Plan Discharge Disposition Patient Disposition: 07 Against Medical Advice Discharge Order Discharge Orders: AMA Discharge (Routine); Ordered 04/05/18 Ordered By: Gene Baker Physicians Team Primary Care Provider: UNKNOWN, Attending Provider: Gene Baker Other Providers: Christian Almanza ; Berlin Bowling Rxs /Orders / Referrals /Forms Prescriptions: Continue sertraline [Zoloft] 50 mg Tablet 50 mg PO DAILY Qty: 30 RF: 0 Referrals: Primary Care [place],No [Family Provider] - See Instructions UNKNOWN, [Primary Care Provider] - See Instructions Discharge Instructions Patient Printed Instructions: Back Pain (GEN) Status ED Status: Left Department Discharge Information Discharge Date/Time: 04/05/18 16:24
[2018-04-05 19:20] VITALS: BP 120/59; PULSE 70; TEMP 97.9
== END 2018-04-05 16:24 | disposition left against medical advice (07) ==
LOC: NEPC 21:47 → NEDA 03-15 00:44 → N04 03-15 02:13
PROVIDERS: ADMIT Family Medicine; ATTEND Family Medicine
DX: F19.10 Other psychoactive substance abuse, uncomplicated; Z91.19 Patient's noncompliance with other medical treatment and regimen; M46.46 Discitis, unspecified, lumbar region; G06.2 Extradural and subdural abscess, unspecified; G89.29 Other chronic pain; F17.210 Nicotine dependence, cigarettes, uncomplicated; Z88.2 Allergy status to sulfonamides; Z79.891 Long term (current) use of opiate analgesic; M46.26 Osteomyelitis of vertebra, lumbar region; Z86.61 Personal history of infections of the central nervous system; B19.20 Unspecified viral hepatitis C without hepatic coma; F41.9 Anxiety disorder, unspecified; F32.9 Major depressive disorder, single episode, unspecified

== ENCOUNTER 2018-04-25 14:14 | Inpatient (IN) ==
[2018-04-25 15:23] LABS: Baso % (Auto) 0.6 % (0.0-2.0); Eos # (Auto) 0.1 th/mm3 (0.0-0.4); Eos % (Auto) 0.8 % (0.0-4.0); Hematocrit 35.4 % (35.0-46.0); Hemoglobin 11.9 gm/dL (11.6-15.3); Lymph # (Auto) 1.4 th/mm3 (1.0-4.8); Mean Corpuscular HGB Conc 33.7 % (32.0-36.0); Mean Corpuscular Hemoglobin 25.8 pg (27.0-34.0); Mean Corpuscular Volume 76.5 fL (80.0-100.0); Mean Platelet Volume 7.3 fL (7.0-11.0); Mono # (Auto) 0.4 th/mm3 (0.0-0.9); Mono % (Auto) 5.8 % (0.0-8.0); Neut # (Auto) 5.6 th/mm3 (1.8-7.7); Neut % (Auto) 73.8 % (16.0-70.0); Platelet Count 214 th/mm3 (150-450); Red Blood Count 4.63 mil/mm3 (4.00-5.30); Red Cell Distribution Width 15.2 % (11.6-17.2); White Blood Count 7.5 th/mm3 (4.0-11.0)
--- NOTE | 2018-04-25 15:24 | XR ---
EXAM DATE: 04/25/2018 3:16 PM EST AGE/SEX: 28 years / Female INDICATIONS: Fever. CLINICAL DATA: This is the patient's initial encounter. Patient reports that signs and symptoms have been present for 1 day and indicates a pain score of 0/10. MEDICAL/SURGICAL HISTORY: None. None. COMPARISON: [facility] [place], CHEST 1V SINGLE AP, 04/19/2018. . FINDINGS: A single AP view of the chest demonstrates the lungs to be symmetrically aerated without evidence of mass, infiltrate or effusion. The cardiomediastinal contours are unremarkable. Osseous structures a re intact. CONCLUSION: No acute cardiopulmonary process Electronically signed by: Kelby Givens MD Board Certified Radiologist 04/25/2018 3:22 PM EST
[2018-04-25 15:44] LABS: Alanine Aminotransferase 41 U/L (10-53); Albumin 3.6 g/dL (3.4-5.0); Anion Gap 7 meq/L (5-15); Aspartate Aminotransferase 30 U/L (15-37); Blood Urea Nitrogen 12 mg/dL (7-18); Calcium 8.5 mg/dL (8.5-10.1); Carbon Dioxide 28.9 meq/L (21.0-32.0); Chloride 106 meq/L (98-107); Glomerular Filtration Rate 88 mL/min (>89); Glucose,Random 91 mg/dL (74-106); Magnesium 2.1 mg/dL (1.5-2.5); Potassium 3.8 meq/L (3.5-5.1); Sodium 142 meq/L (136-145)
[2018-04-25 15:46] LABS: Alkaline Phosphatase 73 U/L (45-117); Total Protein 8.5 g/dL (6.4-8.2)
--- NOTE | 2018-04-25 16:07 | ED ---
HPI General Chief Complaint: Overdose Stated Complaint: Poss OD Time Seen by Provider: 04/25/18 14:41 Source: patient and old records reviewed Mode of arrival: EMS Limitations: no limitations History of Present Illness HPI Narrative: 28-year-old female with a history of IV drug use presents to the emergency department has an overdose of heroin and cocaine. She states that she became stressed and decided to use today. She says she left AGAINST MEDICAL ADVICE yesterday because her boyfriend was not allowed to visit her while she was in the hospital. She states that she "made a bad decision" today and attributes her decision to be and stressed. She denies fever, chills, nausea or vomiting. She states her pain is under control does not request any pain medication at this time. She states that if she had a full workup today she would choose to stay for full evaluation and treatment. MD complaint: Reports accidental overdose Related Data Home Medications Medication Instructions Recorded Confirmed No Known Home Medications 04/25/18 04/25/18 Allergies Allergy/AdvReac Type Severity Reaction Status Date / Time Sulfa (Sulfonamide Allergy Severe Anaphylaxis Verified 04/25/18 14:32 Antibiotics) Review of Systems ROS: all other systems reviewed are negative [facility] Medical History Medical History Low back pain (Acute) Osteomyelitis of lumbar spine (Acute) IVDU (intravenous drug user) (Acute) Endocarditis (Acute) Depression (Acute) Epidural abscess (Acute) Hepatitis C (Acute) IV drug abuse (Acute) Surgical History Surgical History H/O foot surgery (Acute) H/O hand surgery (Acute) Family History Family History Other Coronary artery disease Diabetes mellitus Social History Social History Substance History: Active Abuse Second Hand Smoke Exposure: No Smoking Status: Current every day smoker Tobacco Type: Cigarettes How Often Do You Have a Drink Containing Alcohol: Never Recent Travel in [facility] within the Last 8 Weeks: No Recent Out of Country Travel within the Last 8 Weeks: No Substance Abuse Detail Crack/Cocaine: Substance Use Status: Active Immunization History Tetanus Immunization: <5 Years Exam Narrative Exam Narrative: GENERAL: WD, WN, anxious and tearful SKIN: Focused skin assessment warm/dry. HEAD: Atraumatic. Normocephalic. EYES: Pupils equal and round. No scleral icterus. No injection or drainage. ENT: No nasal bleeding or discharge. Mucous membranes pink and moist. No tonsillar hypertrophy or exudate. NECK: Trachea midline. No JVD. No meningismus. No midline tenderness. CARDIOVASCULAR: Regular rate and rhythm. No murmur appreciated. RESPIRATORY: No accessory muscle use. Clear to auscultation. Breath sounds equal bilaterally. GASTROINTESTINAL: Abdomen soft, non-tender, nondistended. No CVAT. MUSCULOSKELETAL: No obvious deformities. No clubbing. No cyanosis. No edema. No tenderness to palpation of the calves. Sensation intact to bilateral lower extremities. NEUROLOGICAL: Awake and alert. No obvious cranial nerve deficits. Motor grossly within normal limits. Normal speech. PSYCHIATRIC: Appropriate mood and affect; insight and judgment normal. Course Initial Documented Vital Signs Temperature 99.0 F 04/25/18 14:27 Pulse Rate 114 H 04/25/18 14:27 Respiratory Rate 20 04/25/18 14:27 Blood Pressure 120/74 04/25/18 14:27 Last Documented Vital Signs Temperature 99.0 F 04/25/18 14:27 Pulse Rate 82 04/25/18 16:19 Respiratory Rate 16 04/25/18 16:19 Blood Pressure 120/59 L 04/25/18 16:19 Pulse Oximetry 97 04/25/18 16:19 Medical Decision Making MDM Narrative Medical decision making narrative: 28y old female with known to myelitis and IV drug use presents to the emergency department after leaving AMA yesterday. She states that she used IV heroin and crack today because she was stressed. She states she left AMA yesterday because they would not allow her boyfriend to stay with her in the hospital during her stay. EVAC was called to her home because her friends were concerned about her well-being and "periods of apnea". She denies any new symptoms to include fever, chills, nausea or vomiting. Her vital signs are stable. Initial heart rate was over 100 however, it did decrease. Sepsis workup was initiated. Her labs are notable for white blood cell count 7.5 with neutrophil percent of 73.8, lactic 0.6, sodium 142, potassium 3.8, BUN and creatinine 12 and 0.77 Chest x-ray is clear. I reviewed the EMR it appears the last note by the infectious disease physician recommended continuing cefepime, vancomycin, and Levaquin with antibiotic use for 8 weeks. I have initiated these medications here in the emergency department. I will also plan to admit this patient for continuation of treatment. Patient agrees to stay if she is admitted again today. Consider allowing her significant other to stay with her. Also consider psych consult for following patient due to her depressive state. Note that she does deny SI/HI at the time of my evaluation of this patient. I spoke to Dr. Yeboah who he agreed to admission. Medical Screen Exam Complete: Yes Emergency Medical Condition: Yes Differential Diagnosis Differential Diagnosis: Accidental overdose, drug abuse, osteomyelitis, sepsis, cellulitis, malingering Lab Data Result diagrams: 04/25/18 15:05 04/25/18 15:05 Lab Results 04/25/18 04/25/18 04/25/18 Range/Units 15:05 15:05 15:10 WBC 7.5 (4.0-11.0) th/mm3 RBC 4.63 (4.00-5.30) mil/mm3 Hgb 11.9 (11.6-15.3) gm/dL Hct 35.4 (35.0-46.0) % MCV 76.5 L (80.0-100.0) fL MCH 25.8 L (27.0-34.0) pg MCHC 33.7 (32.0-36.0) % RDW 15.2 (11.6-17.2) % Plt Count 214 (150-450) th/mm3 MPV 7.3 (7.0-11.0) fL Neut % (Auto) 73.8 H (16.0-70.0) % Lymph % (Auto) 19.0 (9.0-44.0) % [place] % (Auto) 5.8 (0.0-8.0) % Eos % (Auto) 0.8 (0.0-4.0) % Baso % (Auto) 0.6 (0.0-2.0) % Neut # (Auto) 5.6 (1.8-7.7) th/mm3 Lymph # (Auto) 1.4 (1.0-4.8) th/mm3 [place] # (Auto) 0.4 (0.0-0.9) th/mm3 Eos # (Auto) 0.1 (0.0-0.4) th/mm3 Baso # (Auto) 0.0 (0.0-0.2) th/mm3 WBC Differential . Differential Comment Auto diff final Sodium 142 (136-145) meq/L Potassium 3.8 (3.5-5.1) meq/L Chloride 106 (98-107) meq/L Carbon Dioxide 28.9 (21.0-32.0) meq/L Anion Gap 7 (5-15) meq/L BUN 12 (7-18) mg/dL Creatinine 0.77 (0.50-1.00) mg/dL Estimated GFR 88 L (>89) mL/min Random Glucose 91 (74-106) mg/dL Lactic Acid 0.6 (0.4-2.0) mmol/L Calcium 8.5 (8.5-10.1) mg/dL Magnesium 2.1 (1.5-2.5) mg/dL Total Bilirubin 0.4 (0.2-1.0) mg/dL AST 30 (15-37) U/L ALT 41 (10-53) U/L Alkaline Phosphatase 73 (45-117) U/L Total Protein 8.5 H (6.4-8.2) g/dL Albumin 3.6 (3.4-5.0) g/dL Imaging Data Radiologist's impression: Chest X-Ray 04/25/18 15:00 CONCLUSION: No acute cardiopulmonary process Discharge Plan Discharge Disposition Patient Disposition: ED Admit(ED Internal Use Only) Discharge Condition Condition: Stable Discharge Details Diagnosis: Overdose, Noncompliance with medication regimen Physicians Team ED Provider: Leigh Lopez ED Midlevel Provider: Soledad Johns Primary Care Provider: Primary Care Loren Espinoza Rxs /Orders / Referrals /Forms Prescriptions: No Action No Known Home Medications RF: 0 Status ED Status: Pending Admission
[2018-04-25] MEDS ORDERED: Vancomycin Inj 1,250 MG in Sodium Chlor 0.9% Inj 250 ML IV.SIG ONE (16:19)
[2018-04-25] MEDS ORDERED: Acetaminophen 325 MG Tablet PO PRN (16:36)
[2018-04-25] MEDS ORDERED: Vancomycin Consult Pharmacy OTHER PRN (16:58)
[2018-04-25] MEDS: Enoxaparin Inj 40 MG/0.4 ML Syringe SQ SCH (17:00)
--- NOTE | 2018-04-25 17:13 | P.HPIM ---
History of Present Illness Primary Care Physician: No Primary Care Physician Chief Complaint: Overdose History of Present Illness: The patient is a 28-year-old female with a past medical history significant for bipolar disorder and recent diagnosis of osteomyelitis who is presenting to the hospital following an overdose. The patient was hospitalized for discitis/osteomyelitis and was on a course of vancomycin, Levaquin and cefepime but she left AGAINST MEDICAL ADVICE on 2018 because her boyfriend was not allowed to visit her. The patient said that she was very upset about this and her mood became unstable. She has felt very lonely recently and she believes her Zoloft has not been working. She feels like she hates her life. She says the one good thing that was helping her with her boyfriend visiting her in the hospital. When he was not allowed to stay with her she decided to leave AGAINST MEDICAL ADVICE. The patient said that when she left she was homeless and she did relapse and use heroin and cocaine. She comes into the hospital stating that she made a big mistake. She is willing to get treated for her infection. She requests a psychiatry consult to help with her unstable moods. She says she has severe bipolar disorder. The patient denies any suicidal thoughts or thoughts of harming other people. She is very sad about her life and that her daughter was adopted and she does not get to see her son. She says she feels like she is viewing a version of her life where she sees what she is doing and she cannot stop it or improve it. She is currently requesting something for her headache. She also would like her methadone dose available 4 times daily. Inpatient Certification Inpatient Certification: I certify that the inpatient services were ordered in accordance with Medicare regulations governing the order. This includes certification that hospital inpatient services are reasonable and necessary and in the case of services not specified as inpatient-only under 42 CFR 419.22(n), that they are appropriately provided as inpatient services in accordance to with the 2-midnight benchmark under 43 CFR 412.3(e) Estimated Total Length of Stay (Days): 30 Plans for Post Hospital Care: Home Review of Systems Review of Systems: all other systems reviewed are negative [facility] Medical History Medical History Low back pain (Acute) Osteomyelitis of lumbar spine (Acute) IVDU (intravenous drug user) (Acute) Endocarditis (Acute) Depression (Acute) Epidural abscess (Acute) Hepatitis C (Acute) IV drug abuse (Acute) Surgical History Surgical History H/O foot surgery (Acute) H/O hand surgery (Acute) Family History Family History Other Coronary artery disease Diabetes mellitus Multiple sclerosis Social History Social History Substance History: Active Abuse Second Hand Smoke Exposure: No Smoking Status: Current every day smoker Tobacco Type: Cigarettes How Often Do You Have a Drink Containing Alcohol: Never Recent Travel in [place] within the Last 8 Weeks: No Recent Out of Country Travel within the Last 8 Weeks: No Substance Abuse Detail Crack/Cocaine: Substance Use Status: Active Immunization History Tetanus Immunization: <5 Years Medications and Allergies Allergies Allergy/AdvReac Type Severity Reaction Status Date / Time Sulfa (Sulfonamide Allergy Severe Anaphylaxis Verified 04/25/18 14:32 Antibiotics) Home Medications Medication Instructions Recorded Confirmed Type No Known Home Medications 04/25/18 04/25/18 History Active Medications: Active Medications Acetaminophen (Tylenol) 650 mg PO Q4H PRN PRN Reason: Temp > 100.4, pain 1-2 Levofloxacin/Dextrose (Levaquin 750 Mg Premix Inj) 150 mls @ 100 mls/hr IV.SIG ONCE ONE Stop: 04/25/18 17:48 Vancomycin HCl 1,250 mg/ (Sodium Chloride) 262.5 mls @ 250 mls/hr IV.SIG ONCE ONE Stop: 04/25/18 17:21 Levofloxacin/Dextrose (Levaquin 750 Mg Premix Inj) 150 mls @ 100 mls/hr IV.SIG ONCE ONE Stop: 04/26/18 17:29 Cefepime HCl 2,000 mg/ Sodium (Chloride) 100 mls @ 200 mls/hr IV.SIG Q8H BRITTANI Methadone HCl (Dolophine) 10 mg PO Q6H PRN PRN Reason: pain 6-10/ withdrawal Ondansetron HCl (Zofran Inj) 4 mg IV.PUSH Q6H PRN PRN Reason: NAUSEA OR VOMITING Pharmacy Profile Note (Vancomycin Consult Pharmacy) 1 each OTHER UNSCH PRN PRN Reason: Pharmacy to dose Senna/Docusate Sodium (Liliam-Colace) 1 tab PO BID BRITTANI Sodium Chloride (Ns Flush) 2 ml IV.FLUSH BID BRITTANI Sodium Chloride (Ns Flush) 2 ml IV.FLUSH PRN PRN PRN Reason: FLUSH AFTER USING IV ACCESS Physical Exam Vital signs: Vital Signs 04/25/18 14:27 04/25/18 15:13 04/25/18 15:16 Temperature 99.0 F Pulse Rate 114 H 88 97 H Respiratory Rate 20 17 Blood Pressure 120/74 120/74 Pulse Oximetry 97 95 04/25/18 16:19 Temperature Pulse Rate 82 Respiratory Rate 16 Blood Pressure 120/59 L Pulse Oximetry 97 Intake & Output 04/24/18 04/25/18 04/25/18 18:59 06:59 18:59 Weight 88.904 kg Narrative: GENERAL: Disheveled. SKIN: Focused skin assessment warm/dry. HEAD: Atraumatic. Normocephalic. EYES: Pupils equal and round. No scleral icterus. No injection or drainage. ENT: No nasal bleeding or discharge. Mucous membranes pink and moist. No tonsillar hypertrophy or exudate. NECK: Trachea midline. No JVD. No meningismus. No midline tenderness. CARDIOVASCULAR: Regular rate and rhythm. No murmur appreciated. RESPIRATORY: No accessory muscle use. Clear to auscultation. Breath sounds equal bilaterally. GASTROINTESTINAL: Abdomen soft, non-tender, nondistended. No CVAT. MUSCULOSKELETAL: No obvious deformities. No clubbing. No cyanosis. No edema. Sensation intact to bilateral lower extremities. NEUROLOGICAL: Awake and alert. No obvious cranial nerve deficits. Motor grossly within normal limits. Normal speech. Results Labs CBC & Chem 7: 04/25/18 15:05 04/25/18 15:05 Imaging Impressions Chest X-Ray 04/25/18 15:00 CONCLUSION: No acute cardiopulmonary process Caprini VTE Risk Assessment Caprini VTE Risk Assessment: Moderate/High Risk (score >= 2) Caprini Risk Assessment Model: Point Value = 1 Point Value = 2 Point Value = 3 Point Value = 5 Age 41-60 Minor surgery BMI > 25 kg/m2 Swollen legs Varicose veins or History of unexplained or recurrent spontaneous Oral contraceptives or hormone replacement Sepsis (< 1 month) Serious lung disease, including pneumonia (< 1 month) Abnormal pulmonary function Acute myocardial infarction Congestive heart failure (< 1 month) History of inflammatory bowel disease Medical patient at bed rest Age 61-74 Arthroscopic surgery Major open surgery (> 45 min) Laparoscopic surgery (> 45 min) Malignancy Confined to bed (> 72 hours) Immobilizing plaster cast Central venous access Age >= 75 History of VTE Family history of VTE Factor V Leiden Prothrombin [id number] Lupus anticoagulant Anticardiolipin antibodies Elevated serum homocysteine Heparin-induced thrombocytopenia Other congenital or acquired thrombophilia Stroke (< 1 month) Elective arthroplasty Hip, pelvis, or leg fracture Acute spinal cord injury (< 1 month) Prophylaxis Regimen: Total Risk Factor Score Risk Level Prophylaxis Regimen 0-1 Low Early ambulation 2 Moderate Order ONE of the following: *Sequential Compression Device (SCD) *Heparin 5000 units SQ BID 3-4 Higher Order ONE of the following medications: *Heparin 5000 units SQ TID *Enoxaparin/Lovenox 40 mg SQ daily (WT < 150 kg, CrCl > 30 mL/min) *Enoxaparin/Lovenox 30 mg SQ daily (WT < 150 kg, CrCl > 10-29 mL/min) *Enoxaparin/Lovenox 30 mg SQ BID (WT < 150 kg, CrCl > 30 mL/min) AND/OR *Sequential Compression Device (SCD) 5 or more Highest Order ONE of the following medications: *Heparin 5000 units SQ TID (Preferred with Epidurals) *Enoxaparin/Lovenox 40 mg SQ daily (WT < 150 kg, CrCl > 30 mL/min) *Enoxaparin/Lovenox 30 mg SQ daily (WT < 150 kg, CrCl > 10-29 mL/min) *Enoxaparin/Lovenox 30 mg SQ BID (WT < 150 kg, CrCl > 30 mL/min) AND *Sequential Compression Device (SCD) Assessment and Plan Plan 28 year old female with history of IVDU who repeatedly leaves the hospital AGAINST MEDICAL ADVICE without completing treatment for osteomyelitis of the spine presents again following overdose of heroin and cocaine. 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 Staph epidermidis bacteremia -Infectious disease following on recent hospitalization. Continue cefepime, vancomycin, and Levaquin. - Follow cultures. -Anticipate 8 weeks of IV antibiotics per ID. -Patient counseled to stay for treatment. -Neurosurgery consulted last admission and recommended conservative management and TLSO brace as needed. IV drug abuse/ Noncompliance with medication. The patient interrupted IV antibiotics treatment multiple times by leaving the hospital AGAINST MEDICAL ADVICE -As noted above, the patient was extensively counseled. - Methadone for pain control/withdrawal. Exacerbation of anxiety/depression/bipolar disorder Denies suicidal ideation. -Continue Zoloft -Consult psychiatry per the patient's request. She states the medications are no longer working for her. She has manic episodes at times. PPx: Lovenox
[2018-04-25] MEDS: Senna/Docusate Sodium 8.6/50 MG Tablet PO SCH (22:53)
[2018-04-26] MEDS: Vancomycin Inj 1,250 MG in Sodium Chlor 0.9% Inj 250 ML IV.SIG SCH ×3 (01:58→17:53)
--- NOTE | 2018-04-26 09:07 | P.PN ---
Subjective Interval history: Follow-up for discitis/osteomyelitis of lumbar spine. Patient seen lying in bed. She denies any fever/chills, chest pain, shortness of breath, or back pain. She is requesting her Zoloft for restarted. States she plans to comply with medical treatment. She has no other medical complaints at this time. Vital signs reviewed and stable. Physical Exam Vital signs: Vital Signs 04/25/18 14:27 04/25/18 15:13 04/25/18 15:16 Temperature 99.0 F Pulse Rate 114 H 88 97 H Respiratory Rate 20 17 Blood Pressure 120/74 120/74 Pulse Oximetry 97 95 04/25/18 16:19 04/25/18 17:06 04/25/18 17:19 Temperature Pulse Rate 82 72 72 Respiratory Rate 16 18 Blood Pressure 120/59 L 123/59 L Pulse Oximetry 97 98 04/25/18 20:00 04/25/18 20:32 04/26/18 00:27 Temperature 97.6 F 97.2 F L Pulse Rate 57 L 46 L Respiratory Rate 18 18 Blood Pressure 93/50 L 101/54 L Pulse Oximetry 97 98 98 04/26/18 05:49 04/26/18 08:00 Temperature 97.0 F L 97.6 F Pulse Rate 54 L 52 L Respiratory Rate 18 18 Blood Pressure 106/52 L 99/54 L Pulse Oximetry 98 98 Intake & Output 04/25/18 04/26/18 04/26/18 18:59 06:59 18:59 Intake Total 150 / 150 362.5 / 362.5 Balance 150 / 150 362.5 / 362.5 Weight 88.904 kg Intake: IV 150 / 150 362.5 / 362.5 Maxipime Inj 2,000 MG In NS Inj 100 / 100 100 ML @ 200 mls/hr IV.SIG Q8H [facility] Rx#:[id number] Levaquin 750 mg Premix Inj 150 150 / 150 ML @ 100 mls/hr IV.SIG ONCE ONE Rx#:[id number] Vancomycin Inj 1,250 MG In NS 262.5 / 262.5 Inj 250 ML @ 250 mls/hr IV.SIG Q8H [facility] Rx#:[id number] Other: # Voids 2 Narrative: GENERAL: Well-nourished, well-developed young female patient in NAD. SKIN: Warm and dry. No rash. HEENT: Normocephalic. Atraumatic. Pupils equal and round. Mucous membranes pink and moist. CARDIOVASCULAR: Regular rate and rhythm. No murmur appreciated. RESPIRATORY: No accessory muscle use. Clear to auscultation. Breath sounds equal bilaterally. GASTROINTESTINAL: Abdomen soft, non-tender, nondistended. Normoactive bowel sounds x4. MUSCULOSKELETAL: No obvious deformities. Extremities without clubbing, cyanosis , or edema. NEUROLOGICAL: Awake and alert. No obvious cranial nerve deficits. Moving all extremities spontaneously. Normal speech. Results - Labs CBC & Chem 7: 04/25/18 15:05 04/25/18 15:05 Laboratory Results - last 24 hr 04/25/18 04/25/18 04/25/18 15:05 15:05 15:10 WBC 7.5 RBC 4.63 Hgb 11.9 Hct 35.4 MCV 76.5 L MCH 25.8 L MCHC 33.7 RDW 15.2 Plt Count 214 MPV 7.3 Neut % (Auto) 73.8 H Lymph % (Auto) 19.0 [place] % (Auto) 5.8 Eos % (Auto) 0.8 Baso % (Auto) 0.6 Neut # (Auto) 5.6 Lymph # (Auto) 1.4 [place] # (Auto) 0.4 Eos # (Auto) 0.1 Baso # (Auto) 0.0 WBC Differential . Differential Comment Auto diff final Sodium 142 Potassium 3.8 Chloride 106 Carbon Dioxide 28.9 Anion Gap 7 BUN 12 Creatinine 0.77 Estimated GFR 88 L Random Glucose 91 Lactic Acid 0.6 Calcium 8.5 Magnesium 2.1 Total Bilirubin 0.4 AST 30 ALT 41 Alkaline Phosphatase 73 Total Protein 8.5 H Albumin 3.6 - Imaging Impressions Chest X-Ray 04/25/18 15:00 CONCLUSION: No acute cardiopulmonary process Assessment and Plan - Plan 28 year old female with history of IVDU who repeatedly leaves the hospital AGAINST MEDICAL ADVICE without completing treatment for osteomyelitis of the spine presents again following overdose of heroin and cocaine. 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 Staph epidermidis bacteremia -Infectious disease consulted, recommends continuing IV cefepime, vancomycin, and Levaquin. -Follow cultures, most recent blood cultures 04/20 with staphylococcus epidermidis , previously blood cultures 02/21/18 +serratia marcescens -repeat blood cultures 04/25 so far with NGTD -Anticipate 8 weeks of IV antibiotics per ID. -Patient counseled to stay for treatment. -Neurosurgery consulted last admission and recommended conservative management and TLSO brace as needed. IV drug abuse/ Noncompliance with medication. -The patient interrupted IV antibiotics treatment multiple times by leaving the hospital AGAINST MEDICAL ADVICE -As noted above, the patient was extensively counseled. -Methadone for pain control/withdrawal. Exacerbation of anxiety/depression/bipolar disorder Denies suicidal ideation. -Continue Zoloft -Consult psychiatry per the patient's request. She states the medications are no longer working for her. She has manic episodes at times. -Psychiatry increased Zoloft to 100mg daily, and continued klonopin, trazodone DVT PPx: Lovenox Discharge Planning: Needs to complete 8weeks of IV antibiotics, stop date to be determined by ID. Not a candidate for outpatient infusion secondary to noncompliance and ongoing IVDU. Patient has left AMA multiple times on previous admission.
[2018-04-26] MEDS: Methadone 10 MG Tablet PO PRN ×3 (09:17→21:31)
[2018-04-26] MEDS: Senna/Docusate Sodium 8.6/50 MG Tablet PO SCH ×2 (09:18→21:28)
[2018-04-26] MEDS ORDERED: Sertraline 50 MG Tablet PO SCH (10:00)
--- NOTE | 2018-04-26 12:56 | MB ---
cc: Berlin Bowling MD DATE: 04/26/2018 REQUESTING PHYSICIAN: Vi Cleary. REASON FOR VISIT: Diskitis/osteomyelitis. HISTORY OF PRESENT ILLNESS: This is a 28-year-old white female who has history of vertebral osteomyelitis and diskitis. The patient has known lumbar diskitis at L2-L3 level. She has history of IV drug abuse. The patient was being treated in the hospital and she signed out against medical advice on 04/24/2018. She states that her mood was bad and she did not remain in the hospital. She is known to sign out against medical advice on many occasions in the past and went back to using IV drugs on the streets. She is homeless. She came back to the emergency department because she decided that she wanted to continue with treatment. She has known previous positive culture of the blood with Serratia and subsequent blood culture on last admission grew Staph epidermidis on admission. Her repeated blood cultures were negative. She denies fever, chills, nausea or vomiting. Currently, she feels upset and continues to repeat, "I feel okay and I am okay." She has no significant pain in the back currently. She denies headache, fever, chills, nausea or vomiting. This consultation is requested for continued infectious disease management. Patient was evaluated by Neurosurgery. Neurosurgery felt that surgery was not necessary. PAST MEDICAL HISTORY: Endocarditis, hepatitis C, IV drug abuse, epidural abscess, L2-L3 diskitis, L2-L3 osteomyelitis, low back pain, history of hand surgery, history of foot surgery. ALLERGIES: SULFA. MEDICATION: 1. Levaquin. 2. Cefepime. 3. Vancomycin. 4. Lovenox. 5. Zofran. 6. Zoloft. SOCIAL HISTORY: Positive IV drug abuse in the form of IV heroin and cocaine. Positive tobacco, no alcohol. The patient is homeless. FAMILY HISTORY: Noncontributory. REVIEW OF SYSTEMS: All systems have been reviewed and negative. PHYSICAL EXAMINATION: GENERAL: This is a well-developed female who is in no acute distress. She looks chronically ill. VITAL SIGNS: Includes a temperature 97.6, BP 114/58, respirations 20, heart rate 60. HEENT: Extraocular movements are grossly intact. Pupils reactive to light. No icterus. No conjunctival erythema. Oropharyngeal mucosa is moist. NECK: Supple. No swelling. LUNGS: Clear breath sounds which are diminished at the bases. HEART: Regular S1 and S2. No murmurs, rubs or gallops. ABDOMEN: Soft, positive bowel sounds, nontender. BACK: No significant tenderness. EXTREMITIES: No clubbing, cyanosis or edema. SKIN: No rash. NEUROLOGIC: No gross focal finding. PSYCH: The patient has flat affect. She appears irritable. LABORATORY DATA: WBC 7.5, platelets 214, hemoglobin 11.9, creatinine 0.77, BUN 12, sodium 142. LFTs normal. Blood culture, no growth in 1 day. IMPRESSION: 1. Diskitis and osteomyelitis of the lumbar spine at L2-L3 level. The patient has been noncompliant with medication and frequently has left the hospital against medical advice and has gone out and used IV drugs. This has been despite counseling on continuing treatment uninterrupted in order to avoid complication from this ongoing infection. 2. Intravenous drug abuse. RECOMMENDATIONS: 1. Continue vancomycin. 2. Continue cefepime. 3. Continue Levaquin. 4. Monitor the patient's response to antibiotic treatment. 5. Continue plan as outlined previously. It was intended to treat the patient with 8 weeks of antibiotics and followup to assess her response to the treatment. That is the recommended course in her case. Thank you for this consultation. I will monitor the patient's progress along with you and further recommendations will be made as necessary. Follow the blood cultures as well. MD MARITZA Boggs/amador , 12:18 PM , 12:30 PM
--- NOTE | 2018-04-26 14:14 | P.CONPSY ---
Provisional Diagnosis Admission Date: April 25, 2018 16:46 [place] Adjustment disorder with mixed anxiety and depressed mood, polysubstance dependence including heroine, cannabis, cocaine History of Present Illness Service: Medic[facility] Primary Care Provider: No Primary Care Physician Chief Complaint: Overdose History of Present Illness: The patient is a 28-year-old woman, homeless, single, with a psychiatric history of anxiety, bipolar depression, polysubstance dependence including mainly heroine, cocaine, cannabis, IV drug use or previous psychiatric hospitalizations, suicidal attempts, she has been treated with Zoloft 50 mg initiated by medical doctor during hospitalizations, with a past medical history of hepatitis C, recent diagnosis of osteomyelitis who is presenting to the hospital following an overdose with heroin. The patient was hospitalized for discitis/osteomyelitis and was on a course of vancomycin, Levaquin and cefepime but she left AGAINST MEDICAL ADVICE on 04/24/2018 because her boyfriend was not allowed to visit her. The patient said that she was very upset about this and her mood became unstable. She has felt very lonely recently and she believes her Zoloft has not been working. She feels like she hates her life. She says the one good thing that was helping her with her boyfriend visiting her in the hospital. When he was not allowed to stay with her she decided to leave AGAINST MEDICAL ADVICE. The patient said that when she left she was homeless and she did relapse and use heroin and cocaine. She comes into the hospital stating that she made a big mistake. She is willing to get treated for her infection. She requests a psychiatry consult to help with her unstable moods. On my psychiatric evaluation today the patient is calm, cooperative, a little bit irritable. The patient reports that she has been trying to get sober, to continue the treatment for her medical conditions, but the craving of drugs is a stronger than her. She reports that she has been very anxious, with frequent panic attacks, feeling claustrophobic and the increase need of using drugs. She also reports to be depressed, feeling hopeless, helpless, but denies anhedonia, she denies suicidal and homicidal ideation, denies visual and auditory hallucinations. The patient reports that in the past he has been quite stable in methadone, she was up to 100 mgs, but stopped using it due to the inconvenience of having to go every day to chicken picker to [place]. During the evaluation the patient presents logical, coherent, relevant, she has some episodes of tears, catharsis, but she states that she wants to get better, she does not want to , and she understands that she needs to stop using drugs per patient is fully oriented x3, no attention deficit, no fluctuation of consciousness at this moment. PPHx: with a psychiatric history of anxiety, bipolar depression, polysubstance dependence including mainly heroine, cocaine, cannabis, IV drug use or previous psychiatric hospitalizations, suicidal attempts, she has been treated with Zoloft 50 mg initiated by medical doctor during hospitalizations PMHx: Osteomyelitis, hepatitis Family Hx: She has an aunt with a schizophrenia Substance Hx: Patient reports daily use of heroine, 6-7 bags, mostly IV, occasional use of cocaine and cannot Social Hx: Patient was born and raised in [facility], she is now homeless, she has a boyfriend, she is unemployed, has 2 kids, 1 of them is in adoption, another one living with her father, highest level of education is high school. Review of Systems All other systems reviewed negative except as stated in HPI Psychiatric: Reports anxiety, Reports depression PMFSH - History History Provided By: Patient, Refrigeration Person / EMT - Medical History Medical History: Medical History (Last Reviewed 04/25/18 @ 17:10 by Giuseppe Yeboah DO) Low back pain (Acute) Osteomyelitis of lumbar spine (Acute) IVDU (intravenous drug user) (Acute) Endocarditis Depression Epidural abscess Hepatitis C IV drug abuse - Surgical History Surgical History: Surgical History (Last Reviewed 04/25/18 @ 17:10 by Giuseppe Yeboah DO) H/O foot surgery H/O hand surgery - Family History Family History: Family History (Last Reviewed 04/25/18 @ 17:10 by Giuseppe Yeboah DO) Other Coronary artery disease Diabetes mellitus Multiple sclerosis - Tobacco History Second Hand Smoke Exposure: No Tobacco Use In Past 30 Days: Yes Smoking Status: Current every day smoker Tobacco Type: Cigarettes - Alcohol History How Often Do You Have a Drink Containing Alcohol: Never - Substance Use History Substance History: Active Abuse - Substance Use Type Crack/Cocaine Status: Active - Travel History Recent Travel in the [facility] Within the Last 8 Weeks: No Recent Travel Out of the Country Within the Last 8 Weeks: No - Immunization History Tetanus Immunization: <5 Years Medications and Allergies Active Medications: Active Medications Acetaminophen (Tylenol) 650 mg PO Q4H PRN PRN Reason: Temp > 100.4, pain 1-2 Clonazepam (Klonopin) 0.5 mg PO Q8HR [facility] Enoxaparin Sodium (Lovenox Inj) 40 mg SQ Q24H [facility] Last Admin: 04/25/18 17:00 Dose: Not Given Levofloxacin/Dextrose (Levaquin 750 Mg Premix Inj) 150 mls @ 100 mls/hr IV.SIG ONCE ONE Stop: 04/26/18 17:29 Cefepime HCl 2,000 mg/ Sodium (Chloride) 100 mls @ 200 mls/hr IV.SIG Q8H [facility] Last Infusion: 04/26/18 10:06 Dose: Infused Vancomycin HCl 1,250 mg/ (Sodium Chloride) 262.5 mls @ 250 mls/hr IV.SIG Q8H [facility] Last Infusion: 04/26/18 12:39 Dose: Infused Methadone HCl (Dolophine) 10 mg PO Q6H PRN PRN Reason: pain 6-10/ withdrawal Last Admin: 04/26/18 09:17 Dose: 10 mg Miscellaneous Information ([facility] Ordered Lab Info) 1 each OTHER ONCE ONE Stop: 04/26/18 16:46 Ondansetron HCl (Zofran Inj) 4 mg IV.PUSH Q6H PRN PRN Reason: NAUSEA OR VOMITING Last Admin: 04/25/18 22:53 Dose: 4 mg Pharmacy Profile Note (Vancomycin Consult Pharmacy) 1 each OTHER UNSCH PRN PRN Reason: Pharmacy to dose Senna/Docusate Sodium (Liliam-Colace) 1 tab PO BID [facility] Last Admin: 04/26/18 09:18 Dose: Not Given Sertraline HCl (Zoloft) 100 mg PO DAILY [facility] Sodium Chloride (Ns Flush) 2 ml IV.FLUSH BID [facility] Last Admin: 04/26/18 09:18 Dose: 2 ml Sodium Chloride (Ns Flush) 2 ml IV.FLUSH PRN PRN PRN Reason: FLUSH AFTER USING IV ACCESS Trazodone HCl (Desyrel) 100 mg PO [facility] Allergies Allergy/AdvReac Type Severity Reaction Status Date / Time Sulfa (Sulfonamide Allergy Severe Anaphylaxis Verified 04/25/18 14:32 Antibiotics) Home Medications Medication Instructions Recorded Confirmed Type No Known Home Medications 04/25/18 04/25/18 History Exam Vital signs: Vital Signs 04/25/18 14:27 04/25/18 15:13 04/25/18 15:16 Temperature 99.0 F Pulse Rate 114 H 88 97 H Respiratory Rate 20 17 Blood Pressure 120/74 120/74 Pulse Oximetry 97 95 04/25/18 16:19 04/25/18 17:06 04/25/18 17:19 Temperature Pulse Rate 82 72 72 Respiratory Rate 16 18 Blood Pressure 120/59 L 123/59 L Pulse Oximetry 97 98 04/25/18 20:00 04/25/18 20:32 04/26/18 00:27 Temperature 97.6 F 97.2 F L Pulse Rate 57 L 46 L Respiratory Rate 18 18 Blood Pressure 93/50 L 101/54 L Pulse Oximetry 97 98 98 04/26/18 05:49 04/26/18 08:00 04/26/18 12:00 Temperature 97.0 F L 97.6 F 97.6 F Pulse Rate 54 L 52 L 60 Respiratory Rate 18 18 20 Blood Pressure 106/52 L 99/54 L 114/58 L Pulse Oximetry 98 98 96 Intake & Output 04/25/18 04/26/18 04/26/18 18:59 06:59 18:59 Intake Total 150 / 150 725.0 / 725.0 Balance 150 / 150 725.0 / 725.0 Weight 88.904 kg Intake: IV 150 / 150 725.0 / 725.0 Maxipime Inj 2,000 MG In NS Inj 200 / 200 100 ML @ 200 mls/hr IV.SIG Q8H [facility] Rx#:[id number] Levaquin 750 mg Premix Inj 150 150 / 150 ML @ 100 mls/hr IV.SIG ONCE ONE Rx#:[id number] Vancomycin Inj 1,250 MG In NS 525.0 / 525.0 Inj 250 ML @ 250 mls/hr IV.SIG Q8H [facility] Rx#:[id number] Other: # Voids 2 Mental Status Examination Appearance: Appropriate Consciousness: Alert Orientation: x4 Motor Activity: Normal gait Speech: Unremarkable Language: Adequate Fund of Knowledge: Adequate Attention and Concentration: Adequate Memory: Unremarkable Mood: Sad Affect: Sad Thought Process & Associations: Intact Thought Content: Appropriate Hallucination Type: None Delusion Type: None Suicidal Ideation: No Suicidal Plan: No Suicidal Intention: No Homicidal Ideation: No Homicidal Plan: No Homicidal Intention: No Insight: Adequate Judgment: Adequate Assessment and Plan - Assessment (1) Adjustment disorder with mixed anxiety and depressed mood Code(s): F43.23 - Adjustment disorder with mixed anxiety and depressed mood Status: Acute - Plan Plan: On my psychiatric evaluation the patient presents calm, cooperative, irritable and tearful. The patient reports symptoms of anxiety, frequent panic attacks, claustrophobia, intrusive thoughts, difficulty sleeping at night, increased craving of heroine, also reports depressive symptoms, mostly hopelessness, helplessness, but denies suicidal and homicidal ideation, denies visual and auditory hallucinations. The patient seems to be quite insightful about drug abuse. She seems to be motivated to continue medical treatment and medical recommendations. She is fully oriented x3, no attention deficit, no fluctuation of consciousness. Patient does not meet criteria for involuntary psychiatric admission. She has history of bipolar disorder, poor impulse control, polysubstance dependence, cluster B traits. Has an elevated risk of signing AMA, becoming aggressive during hospitalization, drug-seeking behavior. Continue methadone 10 mg daily Add clonazepam 0.5 mg 3 times daily for her anxiety add trazodone 100 mg at bedtime to help with his sleep and also with depression Increase Zoloft 100 mg daily for anxiety and depression Random U tox recommended in order to monitor potential use of recreational drugs in the hospital Extensive support, motivation, psych education provided I will follow-up. Justification for Continued Inpatient Stay: No admission indicated
[2018-04-26] MEDS: clonazePAM 0.5 MG Tablet PO SCH ×2 (15:19→21:28)
[2018-04-26] MEDS ORDERED: Pharmacy Ordered Lab Info OTHER ONE (16:45)
[2018-04-26] MEDS: Lactobacillus Acidophilus/L. Spores Tablet PO SCH (17:53)
[2018-04-26] MEDS: Enoxaparin Inj 40 MG/0.4 ML Syringe SQ SCH (17:54)
[2018-04-26] MEDS: traZODone 100 MG Tablet PO SCH (21:28)
--- NOTE | 2018-04-26 23:32 | ECG ---
Date Performed: 04/25/2018 Time Performed: 14:25:03 PTAGE: 28 years EKG: SINUS TACHYCARDIA ABNORMAL RHYTHM ECG PREVIOUS TRACING : 04/20/2018 00.02 DOCTOR: Paula Cross Interpretating Date/Time 04/26/2018 23:30:46
[2018-04-27] MEDS: clonazePAM 0.5 MG Tablet PO SCH ×3 (06:15→22:40)
[2018-04-27] MEDS: Lactobacillus Acidophilus/L. Spores Tablet PO SCH ×3 (08:31→17:42)
[2018-04-27] MEDS: Sertraline 50 MG Tablet PO SCH (08:31)
[2018-04-27] MEDS: Vancomycin Inj 1,250 MG in Sodium Chlor 0.9% Inj 250 ML IV.SIG SCH ×4 (08:32→17:42)
[2018-04-27] MEDS: Senna/Docusate Sodium 8.6/50 MG Tablet PO SCH ×2 (08:32→22:40)
[2018-04-27] MEDS: Methadone 10 MG Tablet PO PRN ×2 (09:13→17:42)
--- NOTE | 2018-04-27 11:21 | P.PN ---
Subjective Interval history: Follow-up for discitis/osteomyelitis of lumbar spine. Patient is seen resting in bed. She denies any specific medical complaints including no fever/chills, chest pain, shortness of breath, abdominal pain, or back pain. States she has been ambulating out of bed. She is tolerating oral intake. No other concerns reported. Physical Exam Vital signs: Vital Signs 04/26/18 12:00 04/26/18 16:00 04/26/18 20:00 Temperature 97.6 F 98.0 F Pulse Rate 60 56 L Respiratory Rate 20 20 18 Blood Pressure 114/58 L 110/60 Pulse Oximetry 96 98 04/26/18 20:49 04/27/18 00:21 04/27/18 06:23 Temperature 97.9 F 97.8 F 97.8 F Pulse Rate 61 55 L 53 L Respiratory Rate 20 20 18 Blood Pressure 107/60 99/60 L 94/60 L Pulse Oximetry 99 98 96 04/27/18 08:05 Temperature 98.8 F Pulse Rate 47 L Respiratory Rate 20 Blood Pressure 99/50 L Pulse Oximetry 97 Intake & Output 04/26/18 04/27/18 04/27/18 18:59 06:59 18:59 Intake Total 2737.5 / 2737.5 362.5 / 362.5 Balance 2737.5 / 2737.5 362.5 / 362.5 Intake: IV 1237.5 / 1237.5 362.5 / 362.5 Maxipime Inj 2,000 MG In NS Inj 300 / 300 100 / 100 100 ML @ 200 mls/hr IV.SIG Q8H [facility] Rx#:[id number] Levaquin 750 mg Premix Inj 150 150 / 150 ML @ 100 mls/hr IV.SIG ONCE ONE Rx#:[id number] Vancomycin Inj 1,250 MG In NS 787.5 / 787.5 262.5 / 262.5 Inj 250 ML @ 250 mls/hr IV.SIG Q8H [facility] Rx#:[id number] Oral 1500 / 1500 Other: # Voids 2 # Bowel Movements 1 Narrative: GENERAL: Well-nourished, well-developed young female patient in [facility]. SKIN: Warm and dry. No rash. HEENT: Normocephalic. Atraumatic. Pupils equal and round. Mucous membranes pink and moist. CARDIOVASCULAR: Regular rate and rhythm. No murmur appreciated. RESPIRATORY: No accessory muscle use. Clear to auscultation. Breath sounds equal bilaterally. GASTROINTESTINAL: Abdomen soft, non-tender, nondistended. Normoactive bowel sounds x4. MUSCULOSKELETAL: No obvious deformities. Extremities without clubbing, cyanosis , or edema. NEUROLOGICAL: Awake and alert. No obvious cranial nerve deficits. Moving all extremities spontaneously. Normal speech. Results - Labs CBC & Chem 7: 04/25/18 15:05 04/25/18 15:05 Laboratory Results - last 24 hr 04/26/18 17:34 Vancomycin Trough 11.8 H Microbiology 04/25/18 15:10 Blood - Peripheral Aerobic Blood Culture - Preliminary No growth in 2 days 04/25/18 15:10 Blood - Peripheral Anaerobic Blood Culture - Preliminary No growth in 2 days 04/25/18 15:05 Blood - Peripheral Aerobic Blood Culture - Preliminary No growth in 2 days 04/25/18 15:05 Blood - Peripheral Anaerobic Blood Culture - Preliminary No growth in 2 days Assessment and Plan - Plan 28 year old female with history of IVDU who repeatedly leaves the hospital AGAINST MEDICAL ADVICE without completing treatment for osteomyelitis of the spine presents again following overdose of heroin and cocaine. 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 Staph epidermidis bacteremia -Infectious disease consulted, recommends continuing IV cefepime, vancomycin, and Levaquin. -Follow cultures, most recent blood cultures 04/20 with staphylococcus epidermidis , previously blood cultures 02/21/18 +serratia marcescens -repeat blood cultures 04/25 so far with NGTD -Anticipate 8 weeks of IV antibiotics per ID. -Patient counseled to stay for treatment. -Neurosurgery consulted last admission and recommended conservative management and TLSO brace as needed. IV drug abuse/ Noncompliance with medication. -The patient interrupted IV antibiotics treatment multiple times by leaving the hospital AGAINST MEDICAL ADVICE -As noted above, the patient was extensively counseled. -Methadone for pain control/withdrawal. Exacerbation of anxiety/depression/bipolar disorder Denies suicidal ideation. -Continue Zoloft -Consult psychiatry per the patient's request. She states the medications are no longer working for her. She has manic episodes at times. -Psychiatry increased Zoloft to 100mg daily, and added klonopin, trazodone DVT PPx: Lovenox Discharge Planning: Needs to complete 8weeks of IV antibiotics, stop date to be determined by ID. Not a candidate for outpatient infusion secondary to noncompliance and ongoing IVDU. Patient has left AMA multiple times on previous admission.
[2018-04-27] MEDS: Enoxaparin Inj 40 MG/0.4 ML Syringe SQ SCH (17:05)
[2018-04-27] MEDS: traZODone 100 MG Tablet PO SCH (22:40)
[2018-04-27 23:18] VITALS: PULSE 53; O2SAT 97
[2018-04-28] MEDS: Vancomycin Inj 1,250 MG in Sodium Chlor 0.9% Inj 250 ML IV.SIG SCH ×2 (01:01→11:22)
[2018-04-28] MEDS: clonazePAM 0.5 MG Tablet PO SCH ×2 (05:44→14:07)
[2018-04-28 07:11] VITALS: BP 97/57; RESP 19; TEMP 97.6
[2018-04-28] MEDS ORDERED: Pharmacy Ordered Lab Info OTHER ONE (08:45)
[2018-04-28] MEDS: Sertraline 50 MG Tablet PO SCH (08:55)
[2018-04-28] MEDS: Lactobacillus Acidophilus/L. Spores Tablet PO SCH ×2 (08:55→14:07)
[2018-04-28] MEDS: Methadone 10 MG Tablet PO PRN (08:55)
[2018-04-28] MEDS: Senna/Docusate Sodium 8.6/50 MG Tablet PO SCH (08:56)
[2018-04-28 09:03] LABS: Glomerular Filtration Rate Greater Than 89 mL/min (>89)
--- NOTE | 2018-04-28 11:03 | P.PN ---
Subjective Interval history: Follow-up for discitis/osteomyelitis of lumbar spine. Patient is seen resting in bed. She reports feeling well again today. Denies any fever/chills, chest pain, shortness of breath, abdominal pain, or back pain. Vital signs reviewed and stable. Physical Exam Vital signs: Vital Signs 04/27/18 11:22 04/27/18 12:00 04/27/18 17:20 Temperature 97.7 F 97.8 F Pulse Rate 48 L 58 L Respiratory Rate 19 20 20 Blood Pressure 105/55 L 111/58 L Pulse Oximetry 97 98 04/27/18 18:23 04/27/18 20:00 04/28/18 00:00 Temperature 98.6 F 97.1 F L Pulse Rate 53 L 53 L Respiratory Rate 17 18 20 Blood Pressure 111/57 L 103/59 L Pulse Oximetry 97 97 04/28/18 04:00 04/28/18 10:24 Temperature 97.6 F Pulse Rate 53 L Respiratory Rate 19 19 Blood Pressure 97/57 L Pulse Oximetry 97 Intake & Output 04/27/18 04/28/18 04/28/18 18:59 06:59 18:59 Intake Total 875.0 / 875.0 362.5 / 362.5 100 / 100 Balance 875.0 / 875.0 362.5 / 362.5 100 / 100 Weight 91.3 kg Intake: IV 875.0 / 875.0 362.5 / 362.5 100 / 100 Maxipime Inj 2,000 MG In NS Inj 200 / 200 100 / 100 100 / 100 100 ML @ 200 mls/hr IV.SIG Q8H BRITTANI Rx#:[id number] Levaquin 750 mg Premix Inj 150 150 / 150 ML @ 100 mls/hr IV.SIG Q24H BRTITANI Rx#:[id number] Vancomycin Inj 1,250 MG In NS 525.0 / 525.0 262.5 / 262.5 Inj 250 ML @ 250 mls/hr IV.SIG Q8H BRITTANI Rx#:[id number] Other: # Voids 3 Narrative: GENERAL: Well-nourished, well-developed young female patient in [facility]. SKIN: Warm and dry. No rash. HEENT: Normocephalic. Atraumatic. Pupils equal and round. Mucous membranes pink and moist. CARDIOVASCULAR: Regular rate and rhythm. No murmur appreciated. RESPIRATORY: No accessory muscle use. Clear to auscultation. Breath sounds equal bilaterally. GASTROINTESTINAL: Abdomen soft, non-tender, nondistended. Normoactive bowel sounds x4. MUSCULOSKELETAL: No obvious deformities. Extremities without clubbing, cyanosis , or edema. NEUROLOGICAL: Awake and alert. No obvious cranial nerve deficits. Moving all extremities spontaneously. Normal speech. Results - Labs CBC & Chem 7: 04/25/18 15:05 04/28/18 07:45 Laboratory Results - last 24 hr 04/27/18 04/28/18 11:55 07:45 Creatinine 0.58 Estimated GFR Greater than 89 POC Glucose 111 H Microbiology 04/25/18 15:10 Blood - Peripheral Aerobic Blood Culture - Preliminary gram positive cocci 04/25/18 15:10 Blood - Peripheral Anaerobic Blood Culture - Preliminary No growth in 3 days 04/25/18 15:05 Blood - Peripheral Aerobic Blood Culture - Preliminary No growth in 3 days 04/25/18 15:05 Blood - Peripheral Anaerobic Blood Culture - Preliminary No growth in 3 days Assessment and Plan - Plan 28 year old female with history of IVDU who repeatedly leaves the hospital AGAINST MEDICAL ADVICE without completing treatment for osteomyelitis of the spine presents again following overdose of heroin and cocaine. 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 Staph epidermidis bacteremia -Infectious disease consulted, recommends continuing IV cefepime, vancomycin, and Levaquin. -Follow cultures, most recent blood cultures 04/20 with staphylococcus epidermidis , previously blood cultures 02/21/18 +serratia marcescens -repeat blood cultures 04/25 so far with NGTD -Anticipate 8 weeks of IV antibiotics per ID. -Patient counseled to stay for treatment. -Neurosurgery consulted last admission and recommended conservative management and TLSO brace as needed. IV drug abuse/ Noncompliance with medication. -The patient interrupted IV antibiotics treatment multiple times by leaving the hospital AGAINST MEDICAL ADVICE -As noted above, the patient was extensively counseled. -Methadone for pain control/withdrawal. -Plan for random UDS, ordered for 04/29 Exacerbation of anxiety/depression/bipolar disorder Denies suicidal ideation. -Continue Zoloft -Consult psychiatry per the patient's request. She states the medications are no longer working for her. She has manic episodes at times. -Psychiatry increased Zoloft to 100mg daily, and added klonopin, trazodone DVT PPx: Lovenox Discharge Planning: Needs to complete 8weeks of IV antibiotics, stop date to be determined by ID. Not a candidate for outpatient infusion secondary to noncompliance and ongoing IVDU. Patient has left AMA multiple times on previous admission. HALICAT 1620hrs: Contacted by RN the patient was found in her hospital room with altered mental status, lethargy, and O2 sat dropped to 60-70%. [facility]br[facility] was called. Patient's fiance was in the room during the event. She was placed on 4L O2 via NC and O2 sats started to improve. Ordered for IV Narcan 0.4mg x1 to be given, IVF bolus, and stat head CT. Per RN, patient immediately responded to IV Narcan with immediate improvement of O2 saturations, however patient became agitated and upset that she received Narcan, and refused to allow staff to search belongings. After arriving to the room within 5minutes of notification of halicat, she was AAOx4, vitals all stable, O2 sat 100% on room air, patient requesting to leave AMA. Discussed risks of leaving including worsening infection and , patient verbalized understanding in presence of multiple nurses. She stood up from her bed independently and collected her belongings demanding to leave. This patient has the capacity to refuse care and understands the risks of leaving, including permanent disability and/or , and has had an opportunity to ask questions about her condition. Would recommend upon any further admissions that the patient not be allowed any visitors at any time, and search all belongings prior to admission.
[2018-04-28] MEDS ORDERED: Naloxone Inj 0.4 MG/ML Vial IV.PUSH ONE (16:12)
[2018-04-28] MEDS ORDERED: Naloxone Inj 0.4 MG/ML Vial ONE (16:13)
[2018-04-28] MEDS ORDERED: Sod Chloride 0.9% Inj 1,000 ML IV.CONT SCH (16:14)
[2018-05-02] MEDS ORDERED: Pharmacy Ordered Lab Info OTHER ONE (08:45)
== END 2018-04-28 16:31 | disposition left against medical advice (07) | DRG 918 ==
LOC: NEPE 14:14 → NEDA 16:46 → N05 17:23
PROVIDERS: ADMIT Internal Medicine; ATTEND Internal Medicine
CPT/HCPCS: 71010; 71045; 76937; 80053; 80202; 82565; 82948; 82962; 83605; 83735; 85025; 87040; 93005; 99285; J0692; J1956; J2310; J2405; J3370; J7050